=== PATIENT | female | born 1975 | race Caucasian/White ===

== ENCOUNTER 2018-07-13 17:03 | Inpatient (IN) | payer OTHER ==
[~2018-07-13] VITALS: Ht 170.2 cm; Wt 95.3 kg
[2018-07-13] MEDS ORDERED: RT-ALBUTEROL/IPRATROPIUM 3 ML (DUONEB) VIAL ONE ×2 (17:07→17:18)
[2018-07-13] MEDS ORDERED: methylPREDNISolone 125 MG (Solu-MEDROL) VIAL ONE (17:11)
[2018-07-13] MEDS ORDERED: methylPREDNISolone 125 MG (Solu-MEDROL) VIAL IVP ONE (17:15)
[2018-07-13] MEDS ORDERED: RT-ALBUTEROL/IPRATROPIUM 3 ML (DUONEB) VIAL INH ONE (17:15)
[2018-07-13 17:22] VITALS: BP 139/115
[2018-07-13 17:26] LABS: BASOPHILS % (AUTO) 0 % (0-10); EOSINOPHILS % (AUTO) 0 % (0-10); HEMATOCRIT 41 % (35-52); LYMPHOCYTES # (AUTO) 0.3 X 10^3 (1.0-4.0); LYMPHOCYTES % (AUTO) 2 % (12-44); MEAN CORPUSCULAR HEMOGLOBIN 26 PG (25-34); MEAN CORPUSCULAR HGB CONC 32 G/DL (32-36); MEAN CORPUSCULAR VOLUME 81 FL (80-99); MEAN PLATELET VOLUME 9.5 FL (7.4-10.4); MONOCYTES # (AUTO) 0.2 X 10^3 (0.0-1.0); MONOCYTES % (AUTO) 1 % (0-12); NEUTROPHILS # (AUTO) 13.7 X 10^3 (1.8-7.8); NEUTROPHILS % (AUTO) 96 % (42-75); PLATELET COUNT 409 10^3/uL (130-400); WHITE BLOOD COUNT 14.3 10^3/uL (4.3-11.0)
[2018-07-13] MEDS ORDERED: LORazepam INJ 2 MG/ML (ATIVAN) VIAL ONE (17:28)
--- NOTE | 2018-07-13 17:30 | NUR ---
PT VERY AXIOUS ATIVAN 1MG IV GIVEN
[2018-07-13 17:43] LABS: ALANINE AMINOTRANSFERASE 27 U/L (0-55); ALBUMIN 4.3 GM/DL (3.2-4.5); ALKALINE PHOSPHATASE 59 U/L (40-136); BILIRUBIN,TOTAL 0.3 MG/DL (0.1-1.0); BUN/CREATININE RATIO 13; CALCIUM 9.9 MG/DL (8.5-10.1); CARBON DIOXIDE 16 MMOL/L (21-32); CHLORIDE 103 MMOL/L (98-107); CREATININE SERUM 0.83 MG/DL (0.60-1.30); EOSINOPHILS % (MANUAL) 1 %; GFR ESTIMATED > 60; GLUCOSE 226 MG/DL (70-105); LYMPHOCYTES % (MANUAL) 3 %; MONOCYTES % (MANUAL) 1 %; NEUTROPHILS % (MANUAL) 95 %; POTASSIUM 3.7 MMOL/L (3.6-5.0); SODIUM 135 MMOL/L (135-145)
[2018-07-13 17:44] LABS: RBC MORPH NORMAL
[2018-07-13] MEDS ORDERED: LORazepam INJ 2 MG/ML (ATIVAN) VIAL IVP ONE (17:45)
--- NOTE | 2018-07-13 17:45 | NUR ---
PT VERY ANXIOUS, ATIVAN 1MG IV GIVEN ORDERED.
[2018-07-13] MEDS ORDERED: KETAMINE HCL 100 MG/ML 5 ML VIAL ONE (17:50)
[2018-07-13] MEDS ORDERED: NS (IVPB) 50 ML ONE ×2 (17:50→18:47)
--- NOTE | 2018-07-13 17:50 | NUR ---
CHANGE OF SHIFTS DR BARAHONA TO SEE PT NEW O RECIEVED
[2018-07-13] MEDS: MAGNESIUM 1 GM/100 ML IVPB 100 ML IV SCH ×2 (17:53→18:00)
[2018-07-13] MEDS ORDERED: RT-ALBUTEROL SULF 2.5 MG/3 ML PRE-MIX VIAL ONE (17:54)
[2018-07-13] MEDS ORDERED: ONDANSETRON 4 MG/2 ML (SDV) Z0FRAN ONE ×2 (17:57→19:55)
--- NOTE | 2018-07-13 17:59 | Diagnostic Imaging Report ---
INDICATION: Respiratory distress. EXAMINATION: Single view of the chest was obtained. FINDINGS: There is thickening of the central airways and prompt parabronchial cuffing with some very mild suprahilar atelectatic changes on the right. No adalgisa pneumonia. The heart size is upper limits. No vascular congestion. There is no effusion or pneumothorax. IMPRESSION: There is some thickening of the airways and mild perihilar atelectasis. No consolidating pneumonia, failure or acute pleural abnormality. Dictated by: Dictated on workstation # [id number]
[2018-07-13] MEDS ORDERED: RT-ALBUTEROL SULF 2.5 MG/3 ML PRE-MIX VIAL INH SCH ×2 (18:00→20:45)
[2018-07-13] MEDS ORDERED: KETAMINE HCL 100 MG/ML 5 ML VIAL IV ONE ×2 (18:00→19:00)
--- NOTE | 2018-07-13 18:00 | NUR ---
TEMP 101.1 AT THIS X
--- NOTE | 2018-07-13 18:03 | ED Cough/URI ---
General Chief Complaint: Respiratory Problems Stated Complaint: CP Nursing Triage Note: PT FROM CAR TO ED 2, PT SOA, CYNOTIC, TRIPODING, ONLY ABLE TO SHAKE HEAD FOR ANSWERS. PT HAS ASTHMA Sepsis Screen: No Definite Risk Source: patient, family Exam Limitations: no limitations (ARTI MALIK MD) History of Present Illness Date Seen by Provider: Jul 13, 2018 Time Seen by Provider: 17:00 Initial Comments This 43-year-old white female presents with severe respiratory distress secondary to her asthma. She denies fever or chills or productive cough. She denies substance insulation. The patient is unable offer helpful history of this time due to her extreme respiratory distress. (ARTI MALIK MD) Allergies and Home Medications Allergies Coded Allergies: No Known Drug Allergies (Unverified , 07/13/18) Patient Home Medication List Home Medication List Reviewed: Yes (ARTI MALIK MD) Review of Systems Review of Systems Constitutional: No chills EENTM: No ear pain Respiratory: see HPI, cough, short of breath, wheezing Cardiovascular: No chest pain Gastrointestinal: No abdominal pain Genitourinary: No dysuria, No frequency Musculoskeletal: no symptoms reported Skin: no symptoms reported Psychiatric/Neurological: No Symptoms Reported Hematologic/Lymphatic: No Symptoms Reported Immunological/Allergic: no symptoms reported (ARTI MALIK MD) Past Xywuwam-Vtxpdr-Ujfsuh Hx Past Med/Social Hx: Reviewed Nursing Past Med/Soc Hx (ARTI MALIK MD) Patient Social History Alcohol Use: Denies Use Recreational Drug Use: No Smoking Status: Current Everyday Smoker Type Used: Cigarettes Recent Foreign Travel: No Contact w/Someone Who Travel: No Recent Infectious Disease Expo: No Recent Hopitalizations: No (ARTI MALIK MD) Seasonal Allergies Seasonal Allergies: No (ARTI MALIK MD) Past Medical History Surgeries: No Respiratory: No Cardiac: No Neurological: No Genitourinary: No Gastrointestinal: No Musculoskeletal: No Endocrine: No HEENT: No Cancer: No Psychosocial: No Integumentary: No Blood Disorders: No (ARTI MALIK MD) Physical Exam Vital Signs - First Documented 07/13/18 17:03 Temp 99.6 Pulse 138 Resp 42 B/P (MAP) 142/92 (109) Pulse Ox 80 O2 Delivery OxyMask O2 Flow Rate 10.00 (KELLY BARAHONA) Capillary Refill : Less Than 3 Seconds (ARTI MALIK MD) Height: 5'7.00" Weight: 178lbs. oz. 80.569854zm; BMI Method:Stated General Appearance: severe distress Eyes: Bilateral Eye PERRL HEENT: normal ENT inspection Neck: full range of motion, supple Respiratory: decreased breath sounds, accessory muscle use Cardiovascular: regular rate, rhythm Gastrointestinal: normal bowel sounds Extremities: normal range of motion, non-tender Neurologic/Psychiatric: no motor/sensory deficits, alert, normal mood/affect, oriented x 3 Skin: normal color, warm/dry (ARTI MALIK MD) Focused Exam Sepsis Stage: Sepsis Possible Source: Pulmonary (KELLY BARAHONA) Time of Focused Exam: 22:25 Respiratory: No Accessory Muscle Use, Respiratory Distress, Wheezing Cardiovascular: Regular Rate, Rhythm (tachycardia 110), Normal Peripheral Pulses Capillary Refill: Less Than 3 Seconds Peripheral Pulses: 2+ Radial Pulses (R), 2+ Radial Pulses (L) Skin: normal color, warm/dry (KELLY BARAHONA) Within 3hrs of presentation: Admin fluids, Admin ABX, Blood cultures prior to ABX's, Focus exam, Lactate level (KELLY BARAHONA) Procedures/Interventions Reason for Intubation: acute respiratory failure hypercarbia, ventilatory failure Date of ETT Placement: Jul 13, 2018 Time of ETT Placement: 19:37 Intubation Method: orotracheal Tube Size: 8 Medications: Etomidate (30), Succinylcholine (100) Positive End Tide CO2: Yes Breath Sounds after Intubation: bilateral-equal Intubation Complications: no complications Post Intubation Xray: Yes (KELLY BARAHONA) Progress/Results/Core Measures Suspected Sepsis Recent Fever Within 48 Hours: No Infection Criteria Present: None New/Unexplained Altered Menta: No Sepsis Screen: No Definite Risk SIRS Temperature:99.6 Pulse: 138 Respiratory Rate: 42 Laboratory Tests 07/13/18 17:10: White Blood Count 14.3H Blood Pressure 139 /115 Mean: 109 Laboratory Tests 07/13/18 17:10: Creatinine 0.83, Platelet Count 409H, Total Bilirubin 0.3 (ARTI MALIK MD) Results/Orders Lab Results Laboratory Tests Test 07/13/18 17:10 07/13/18 17:34 07/13/18 18:00 Range/Units White Blood Count 14.3 H 4.3-11.0 10^3/uL Red Blood Count 4.98 4.35-5.85 10^6/uL Hemoglobin 13.0 11.5-16.0 G/DL Hematocrit 41 35-52 % Mean Corpuscular Volume 81 80-99 FL Mean Corpuscular Hemoglobin 26 25-34 PG Mean Corpuscular Hemoglobin Concent 32 32-36 G/DL Red Cell Distribution Width 16.0 H 10.0-14.5 % Platelet Count 409 H 130-400 10^3/uL Mean Platelet Volume 9.5 7.4-10.4 FL Neutrophils (%) (Auto) 96 H 42-75 % Lymphocytes (%) (Auto) 2 L 12-44 % Monocytes (%) (Auto) 1 0-12 % Eosinophils (%) (Auto) 0 0-10 % Basophils (%) (Auto) 0 0-10 % Neutrophils # (Auto) 13.7 H 1.8-7.8 X 10^3 Lymphocytes # (Auto) 0.3 L 1.0-4.0 X 10^3 Monocytes # (Auto) 0.2 0.0-1.0 X 10^3 Eosinophils # (Auto) 0.0 0.0-0.3 10^3/uL Basophils # (Auto) 0.0 0.0-0.1 10^3/uL Neutrophils % (Manual) 95 % Lymphocytes % (Manual) 3 % Monocytes % (Manual) 1 % Eosinophils % (Manual) 1 % Blood Morphology Comment NORMAL Sodium Level 135 135-145 MMOL/L Potassium Level 3.7 3.6-5.0 MMOL/L Chloride Level 103 98-107 MMOL/L Carbon Dioxide Level 16 L 21-32 MMOL/L Anion Gap 16 H 5-14 MMOL/L Blood Urea Nitrogen 11 7-18 MG/DL Creatinine 0.83 0.60-1.30 MG/DL Estimat Glomerular Filtration Rate > 60 BUN/Creatinine Ratio 13 Glucose Level 226 H 70-105 MG/DL Calcium Level 9.9 8.5-10.1 MG/DL Corrected Calcium 9.7 8.5-10.1 MG/DL Total Bilirubin 0.3 0.1-1.0 MG/DL Aspartate Amino Transf (AST/SGOT) 35 H 5-34 U/L Alanine Aminotransferase (ALT/SGPT) 27 0-55 U/L Alkaline Phosphatase 59 40-136 U/L Troponin I < 0.028 <0.028 NG/ML B-Type Natriuretic Peptide 34.4 <100.0 PG/ML Total Protein 8.0 6.4-8.2 GM/DL Albumin 4.3 3.2-4.5 GM/DL Serum Test, Qualitative NEGATIVE NEGATIVE D-Dimer 0.58 H 0.00-0.49 UG/ML Blood Gas Puncture Site RT RAD Blood Gas Patient Temperature 101 Arterial Blood pH 7.25 *L 7.37-7.43 Arterial Blood Partial Pressure CO2 54 H 35-45 MMHG Arterial Blood Partial Pressure O2 64 L 79-93 MMHG Arterial Blood HCO3 22 L 23-27 MMOL/L Arterial Blood Total CO2 23.6 21.0-31.0 MMOL/L Arterial Blood Oxygen Saturation 83 L 94-100 % Arterial Blood Base Excess -3.8 L -2.5-2.5 MMOL/L Ulices Test YES-POS Blood Gas Ventilator Setting NO Blood Gas Inspired Oxygen 10 (KELLY BARAHONA) Micro Results (KELLY BARAHONA) My Orders Orders - KELLY BARAHONA Midazolam Injection (Versed Injection) (07/13/18 18:30) Arterial Blood Draw (07/13/18 18:00) (KELLY BARAHONA) Medications Given in ED Current Medications Medications Dose Ordered Sig/James Route Start Time Stop Time Status Last Admin Dose Admin Albuterol/ Ipratropium 3 ml ONCE ONCE INH 07/13/18 17:15 07/13/18 17:19 DC 07/13/18 17:22 3 ML Ketamine HCl 40 mg ONCE ONCE IV 07/13/18 18:00 07/13/18 18:01 DC 07/13/18 17:54 40 MG Lorazepam 1 mg ONCE ONCE IVP 07/13/18 17:45 07/13/18 17:46 DC 07/13/18 17:30 1 MG Methylprednisolone Sodium Succinate 125 mg ONCE ONCE IVP 07/13/18 17:15 07/13/18 17:19 DC 07/13/18 17:15 125 MG Midazolam HCl 2 mg ONCE ONCE IVP 07/13/18 18:30 07/13/18 18:31 DC 07/13/18 18:25 2 MG Ondansetron HCl 4 mg STK-MED ONCE .ROUTE 07/13/18 17:57 07/13/18 17:58 DC 07/13/18 17:54 4 MG (KELLY BARAHONA) Vital Signs/I&O 07/13/18 07/13/18 07/13/18 07/13/18 17:03 17:22 18:09 18:14 Temp 99.6 Pulse 138 138 135 Resp 42 40 B/P (MAP) 142/92 (109) Pulse Ox 80 94 93 95 O2 Delivery OxyMask OxyMask O2 Flow Rate 10.00 50.00 15.00 50.00 07/14/18 00:00 Intake Total 200 ml Balance 200 ml (KELLY BARAHONA) Vital Signs/I&O Capillary Refill : Less Than 3 Seconds (ARTI MALIK MD) Blood Pressure Mean: 109 ECG Initial ECG Impression Date: Jul 13, 2018 Initial ECG Impression Time: 19:05 Initial ECG Rate: 137 Initial ECG Rhythm: Normal Sinus Initial ECG Intervals: Normal Initial ECG Impression: Normal Comment No significant ST elevation or depression. Sinus tachycardia. (KELLY BARAHONA) Diagnostic Imaging Diagonstic Imaging: Xray Plain Films/CT/US/NM/MRI: chest Comments [facility] [place] NAME: TIMI DELGADO [facility] REC#: [id number] PT STATUS: REG ER : 1975 PHYSICIAN: ARTI MALIK MD ADMIT DATE: 07/13/18/ER Draft Date of Exam:07/13/18 CHEST 1 VIEW, AP/PA ONLY INDICATION: Respiratory distress. EXAMINATION: Single view of the chest was obtained. FINDINGS: There is thickening of the central airways and prompt parabronchial cuffing with some very mild suprahilar atelectatic changes on the right. No adalgisa pneumonia. The heart size is upper limits. No vascular congestion. There is no effusion or pneumothorax. IMPRESSION: There is some thickening of the airways and mild perihilar atelectasis. No consolidating pneumonia, failure or acute pleural abnormality. Dictated on workstation # [id number] Dict: 07/13/18 1741 Trans: 07/13/[address] [facility] [id number] Interpreted by: ASHLEY RITCHIE Electronically signed by: Diagonstic Imaging: Xray Plain Films/CT/US/NM/MRI: chest Comments Postintubation about 3 cm above the julio. OG tube in good placement in the stomach bubble. Reviewed: Reviewed by Me Diagonstic Imaging: CT (angiogram) Plain Films/CT/US/NM/MRI: chest Comments No pulmonary embolism noted. There is some peribronchial cuffing and infiltration consistent with influenza but no definite pneumonia. Reviewed: Reviewed by Me (KELLY BARAHONA) Critical Care Note Critical Care Start Time: 17:45 Stop Time: 21:30 Total Time (minutes) 225 mins Progress Assume care of the patient at shift change. She was very agitated and unable to give any meaningful history and had audible wheezing respirator distress increased work of breathing. Breath sounds were very tight she been ordered for some magnesium DuoNeb 3 and 2 of Ativan IV. We increased the magnesium 2 mg gave her a 40 mg/kg slow IV push the ketamine and 2 more milligrams of Versed. Patient was not tolerating her BiPAP but after we gave her the ketamine and Versed we're able to get BiPAP on and her respirations status improved significantly. The initial ABG obtained was clotted so we redrew it and that one was obtained while she was still on just a nebulizer at 8 L. Her sats were about 88%. Once we get her on the BiPAP with an FiO2 of 50 we continued the hour -long DuoNeb and her sats were about 95-97%. Her work of breathing decreased. Put her at 15 cm water pressure over 4 centimeters water pressure which gave her plenty of expiratory time. Her breath sounds improved significantly. She still had lots of wheezing however which she was moving air much that her. We had to give her 2 more milligrams of Ativan as she was coming agitated and trying to pull her mask off. Her mother states that she gets very agitated and likes to pull things when irritated her. She refuses to wear her BiPAP at home. The ABG demonstrated that she had CO2 retention as well as low oxygen. We'll repeat it 30 minutes after initiation of the mask. We did end up giving her second dose of ketamine 30 mg slow IV push and 2 more milligrams of Ativan as she was becoming agitated and her wheezing was still very persistent. She finished her DuoNeb and had good sounds are very wheezy still. Some crackles were heard initially at the base but not heard on re-listening. Chest x-ray did not demonstrate any infiltrate. White count of 14,000. Her mother states she's recently been on steroids prednisone outpatient so is probably why she has a mildly elevated white count. She started and given Solu-Medrol 125 mg prior to shift change. Patient's oxygen sats are staying in above 95% and her heart rate is staying around 130 -140. Blood pressure is good. Finally her d-dimer does not rule out a PE so we are sending her for an angiogram of her chest. We cannot get any meaningful history out of her and only minimal history of family. She does not demonstrate any outward clinical evidence of DVT. 2000: Patient's still having a lot of increased worker breathing wearing out and the ABG did not improve for her ventilation. Her oxygenation did significantly improve. Made a decision to go ahead and intubate her. Consulted with pulmonology also recommend a liter fluids as her blood pressure may drop. Initial settings of 350, 20 rest burst, Kido 5, FiO2 of 40. Oxygenation is good at 98%. Suctioned up some mucus sent for sputum culture. End-tidal CO2 is 49 so bumped up her total volume to 400. We'll continue to incrementally adjust and obtain an ABG when she gets back from CT. 2014: Discussed case with Dr. Keenan and he gave ventilator setting recommendations of PEEP of 8, tidal volume 400, respiratory rate of 22. He recommended also that we go ahead and do paralytics as the patient was doing better when she was on paralytics and worse once that wore off. Regarding increased her propofol to 28.8 mL/h and gave her a 20 mg IV push bolus. We also gave her 5 of Versed. She was having some gagging and no expectoration on suctioning. The cuff was tight. The ET tube was ascertained to be in good position. She had good breath sounds both sides are still very wheezy. He also recommended we do every 2 hours a albuterol breathing treatment. Steroids. We have made some changes to the ventilator try to keep the eat time long. He recommended an i.e. ratio 1:3-4. He recommended Nimbex bolus and drip per protocol and no old drip at 50-75 g per hour in addition to the propofol. We' ve given 100 g fentanyl bolus in addition to the Versed and she's calm down quite a bit. After we get her stabilized we'll get CT and then on repeat ABG. FiO2 was increased to 1.0 and urinalysis started to back and off-again as it's 100% once her sedation has improved. She did have a small amount of emesis that was suctioned from the oropharynx. We replaced the suction canister and got a modest 50 cc of stomach secretions out. We gave her a second bolus of 2 g of magnesium. Within she was having the vomiting so we ordered 8 of Zofran and 50 mg of Phenergan to be placed in the liter bag of fluids is still had about 750 cc in it. We'll give her another albuterol treatment as well. 2129: We got the patient's ventilator settings changed to where she is oxygenating well at 40 FiO2 and her end-tidal CO2 is about 45. Her PTT is 26 with an I:E time of 1:3.3. We'll get the patient paralyzed and very adequately sedated. Were just starting paralytics now and she has not been bucking the vent since starting the fentanyl, in addition to the propofol. Oxygen sats between 96 and 100%. We will place a central line for access as we have some any drips. Patient tolerated this well. We have been keeping the family up-to- date as we're doing this. Her ABG came back demonstrating an improved CO2 but her pH still low. Her O2 sat started to slip down to 91-93% as well as her some ET CO2 is about 46 now instead of 42. We increased the tidal volume to 450. Peak airway pressure is about 36. (KELLY BARAHONA) Departure Communication (Admissions) Time/Spoke to Admitting Phy: 18:45 Discussed the case with Dr. Narayan and she agrees to admit the patient with Dr. Keenan's consult on precedex drip. Time/Spoke to Consulting Phy: 19:00 See critical care. Discussed case with pulmonology, Dr. Keenan. He agrees to see the patient. (KELLY BARAHONA) Impression Primary Impression: Asthma exacerbation Qualified Codes: J45.901 - Unspecified asthma with (acute) exacerbation Additional Impressions: Acute respiratory failure with hypoxia and hypercapnia Influenza Disposition: 09 ADMITTED INPATIENT Condition: Critical Admissions Decision to Admit Reason: Admit from ER (General) Decision to Admit/Date: Jul 13, 2018 Time/Decision to Admit Time: 18:46 (KELLY BARAHONA) Departure-Patient Inst. Referrals: UNKNOWN (PCP/Family) Primary Care Physician ARTI MALIK MD Jul 13, 2018 18:03 KELLY BARAHONA Jul 13, 2018 19:10
[2018-07-13 18:07] LABS: ABG BASE EXCESS -3.8 MMOL/L (-2.5-2.5); ABG OXYGEN SATURATION 83 % (94-100); ABG PCO2 54 MMHG (35-45); ABG PO2 64 MMHG (79-93); ABG TCO2 23.6 MMOL/L (21.0-31.0)
[2018-07-13 18:08] LABS: ABG PH 7.25 (7.37-7.43)
[2018-07-13 18:09] LABS: ALLENS TEST YES-POS; INSPIRED O2 10; PATIENT TEMP 101; VENTILATOR NO
[2018-07-13 18:14] VITALS: BP 146/96
[2018-07-13] MEDS ORDERED: MIDAZOLAM 2 MG/2 ML (VERSED) VIAL ONE (18:19)
[2018-07-13] MEDS ORDERED: MIDAZOLAM 2 MG/2 ML (VERSED) VIAL IVP ONE ×2 (18:30→19:00)
--- OUTSIDE RECORDS SUMMARY | 2018-07-13 18:42 | XMS REPORT ---
Author Author HOANG BLAKE [facility] Address [address] [place] [address] Care Team Providers Care Therapist Radiation Name Role Phone HOANG BLAKE Unavailable PROBLEMS Type Condition ICD9-CM Code [id number] Code Onset Dates Condition Status SNOMED Code Problem Acute sinusitis, recurrence not specified, unspecified location J01.90 Active 51509686 Problem Major depressive disorder, recurrent episode, moderate 296.32 Active 59272878 Problem Generalized anxiety disorder 300.02 Active 69048600 ALLERGIES No Information SOCIAL HISTORY Never Assessed PLAN OF CARE VITAL SIGNS MEDICATIONS No Known Medications RESULTS No Results PROCEDURES Procedure Date Ordered Result Body Site TDAP (BOOSTRIX) Jun 24, 2016 SINGLE IMMUNIZATION ADMIN Jun 24, 2016 IMMUNIZATIONS Vaccine Route Administration Date Status TDAP (BOOSTRIX) IM Intramuscular Jun 24, 2016 Administered MEDICAL (GENERAL) HISTORY Type Description Date Surgical History tubal ligation
--- OUTSIDE RECORDS SUMMARY | 2018-07-13 18:42 | XMS REPORT ---
Author Author SHADI DENISHA Organization [facility] Address [address] [place] [address] Care Team Providers Care Manager Of Selection And Assessment Name Role Phone DENISHA HSU Unavailable PROBLEMS Type Condition ICD9-CM Code [id number] Code Onset Dates Condition Status SNOMED Code Problem Acute sinusitis, recurrence not specified, unspecified location J01.90 Active 25903668 Problem Major depressive disorder, recurrent episode, moderate 296.32 Active 62260127 Problem Generalized anxiety disorder 300.02 Active 35689903 ALLERGIES No Known Allergies ENCOUNTERS Encounter Location Date Diagnosis [facility] [id number] [place] [phone] Apr, Wheezing R06.2 and Acute nasopharyngitis J00 [facility] [id number] [place] [address] September, Muscle strain of right upper back, initial encounter S29.012A [facility] [id number] [place] [address] Jun, Encounter for immunization Z23 [facility] [id number] [place] [address] Dec, [facility] [id number] [place] [address] Dec, Acute sinusitis, recurrence not specified, unspecified location J01.90 and Upper respiratory tract infection, unspecified type J06.9 [facility] [id number] [place] [phone] Oct, Upper respiratory tract infection, unspecified type J06.9 [facility] [place] [id number] [place] [address] Jul, [facility] [place] [id number] [address] Jul, [facility] [place] [id number] [address] Jun, [facility] [place] [id number] [place] [address] Jun, [facility] [place] [id number] [place] [address] May, [facility] [place] [id number] [place] [address] May, [facility] [place] [id number] [place] [phone] Apr, [facility] [place] [id number] [place] [address] Apr, [facility] [place] [id number] [place] [address] Apr, [facility] [place] [id number] [address] Apr, IMMUNIZATIONS No Known Immunizations SOCIAL HISTORY Never Assessed REASON FOR VISIT Shortness of breath that started last week after raking leaves and burning them. The patient developed a cough and some shortness of breath and feels that the shortness of breath and be worse today.--BERNADINE Cavanaugh PLAN OF CARE Activity Details Follow Up as needed or reg fu with pcp Reason: VITAL SIGNS Height 66 in 2018-04-30 Weight 209 lbs 2018-04-30 Temperature 97.6 degrees Fahrenheit 2018-04-30 Heart Rate 102 bpm 2018-04-30 Respiratory Rate 20 2018-04-30 Oximetry 96 % 2018-04-30 BMI 33.73 kg/m2 2018-04-30 Blood pressure systolic 132 mmHg 2018-04-30 Blood pressure diastolic 88 mmHg 2018-04-30 MEDICATIONS Medication Instructions Dosage Frequency Start Date End Date Duration Status PredniSONE 20 mg Orally Once a day 1 tablet 24h Apr, 5 days Active ProAir HFA 108 (90 Base) MCG/ACT Inhalation every 4 hrs 2 puffs as needed 4h Apr, 7 days Active RESULTS No Results PROCEDURES No Known procedures INSTRUCTIONS MEDICATIONS ADMINISTERED No Known Medications MEDICAL (GENERAL) HISTORY Type Description Date Surgical History tubal ligation Surgical History umbilical hernia
--- OUTSIDE RECORDS SUMMARY | 2018-07-13 18:42 | XMS REPORT ---
Author Author REBA DELGADO [facility] eClinical[employer] Address Unknown Phone Unavailable Care Team Providers Care Histology Supervisor Name Role Phone REBA DELGADO CP Unavailable Allergies No Known Allergies Problems Problem Type Condition Code Onset Dates Condition Status Problem Major depressive disorder, recurrent episode, moderate 296.32 Active Problem Generalized anxiety disorder 300.02 Active Problem Acute sinusitis, recurrence not specified, unspecified location J01.90 Active Medications Medication Code System Code Instructions Start Date End Date Status Dosage PredniSONE [facility] [address]-08 20 MG Orally 2 tablets daily x 5 days Dec 24, 2015 Dec 29, 2015 1 tablet Results No Known Results Summary Purpose eClinicalWorks Submission
--- OUTSIDE RECORDS SUMMARY | 2018-07-13 18:42 | XMS REPORT | Continuity of Care Document ---
Author Author [facility]ly [facility] Address Unknown Phone Unavailable Allergies There is no data. Medications There is no data. Problems Date Dx Coded Attending Type Code Diagnosis Diagnosed By 04/26/2014 MARY MANZANO PHD 296.32 MO DEPRESSIVE RECURRENT MODERATE 04/26/2014 MARY MANZANO PHD 300.02 AN GEN ANXIETY Procedures Code [place] [address] PSYCH DIAGNOSTIC EVALUATION 04/26/2014 Results There is no data. Encounters ACCT No. Visit Date/Time Discharge Status Pt. Type Provider Facility Loc./Unit Complaint [id number] 04/26/2014 09:49:00 04/26/2014 23:59:59 CLS Outpatient MARY MANZANO PHD [id number] 06/29/2018 15:40:00 06/29/2018 23:59:59 CLS Outpatient [facility] [id number] 09/08/2013 07:53:00 09/08/2013 23:59:59 CLS Outpatient [id number] 01/28/2013 13:34:00 01/28/2013 23:59:59 CLS Outpatient
--- NOTE | 2018-07-13 19:00 | NUR ---
REPORT TO MARY QUIGLEY
[2018-07-13 19:14] LABS: ABG BASE EXCESS -3.7 MMOL/L (-2.5-2.5); ABG OXYGEN SATURATION 98 % (94-100); ABG PO2 136 MMHG (79-93); ABG TCO2 25.6 MMOL/L (21.0-31.0)
[2018-07-13 19:15] LABS: ABG PCO2 72 MMHG (35-45); ABG PH 7.16 (7.37-7.43)
[2018-07-13 19:16] LABS: ALLENS TEST YES-POS; INSPIRED O2 50% BIPAP; PATIENT TEMP 101.4; VENTILATOR NO
[2018-07-13] MEDS ORDERED: NS IV 1000 ML 1,000 ML IV STA (19:25)
[2018-07-13] MEDS ORDERED: NS IV 1000 ML 1,000 ML ONE (19:26)
[2018-07-13] MEDS ORDERED: NS 100 ML (IVPB) BAG IV ONE (19:30)
[2018-07-13] MEDS ORDERED: IOHEXOL 350 MG/ML 150 ML (OMNIPAQUE 350) VIAL IV ONE (19:30)
[2018-07-13] MEDS ORDERED: HOLD METFORMIN - RECEIVED CONTRAST 20 ML VIAL IV SCH (19:30)
[2018-07-13] MEDS ORDERED: CATHETER FLUSH 10 ML SYR IV PRN (19:30)
[2018-07-13] MEDS ORDERED: PROPOFOL DRIP (ICU) 100 ML IV ONE ×2 (19:32→22:51)
--- NOTE | 2018-07-13 19:34 | NUR ---
DECISION TO INTUBATE MADE-1927 30MG OF ETOMIDATE GIVEN IV-1933 100MG OF SUCCINYLCHOLINE GIVEN IV- 1935 PT INTUBATED, 22 AT THE TEETH NOTED PER DR. BARAHONA.
--- NOTE | 2018-07-13 19:46 | NUR ---
PT TITRATED TO 40MCG/MIN PER DR. BARAHONA D/T PT SHOWING S/S OF POOR SEDATION POST INTUBATION
[2018-07-13] MEDS ORDERED: MIDAZOLAM 5 MG/5 ML (VERSED) VIAL ONE (19:55)
[2018-07-13] MEDS ORDERED: PROMETHAZINE INJ 25 MG/ML (PHENERGAN) AMP ONE (20:04)
[2018-07-13] MEDS ORDERED: MAGNESIUM 1 GM/100 ML IVPB 100 ML IV SCH (20:15)
[2018-07-13] MEDS ORDERED: CISATRACURIUM 2MG/ML (NIMBEX) 10ML VIAL IV ONE (20:15)
--- NOTE | 2018-07-13 20:17 | Diagnostic Imaging Report ---
INDICATION: ET tube. EXAMINATION: Single view of the chest was obtained. FINDINGS: ET tube tip projects over the mid trachea. The OG catheter goes into the stomach. No focal pulmonary consolidation. No effusion or pneumothorax. IMPRESSION: Support apparatus in good alignment. Dictated by: Dictated on workstation # [id number]
[2018-07-13] MEDS ORDERED: fentaNYL (OMNICELL DRIP KIT ONLY) 250 MCG/5 ML AMP ONE (20:24)
[2018-07-13] MEDS ORDERED: NS (IVPB) 100 ML ONE (20:24)
[2018-07-13 20:25] VITALS: BP 129/75
[2018-07-13] MEDS ORDERED: fentaNYL INJECTION 100 MCG/2 ML AMP ONE (20:28)
[2018-07-13] MEDS ORDERED: fentaNYL INJECTION 100 MCG/2 ML AMP IVP ONE (20:30)
[2018-07-13] MEDS ORDERED: PROMETHAZINE INJ 25 MG/ML (PHENERGAN) AMP IVP ONE (20:45)
[2018-07-13] MEDS ORDERED: proPOfol 200 MG/20 ML (DIPRIVAN) VIAL IV ONE (20:45)
[2018-07-13] MEDS ORDERED: MIDAZOLAM 5 MG/5 ML (VERSED) VIAL IVP ONE (20:45)
[2018-07-13] MEDS ORDERED: ONDANSETRON 4 MG/2 ML (SDV) Z0FRAN IVP ONE (20:45)
[2018-07-13] MEDS: fentaNYL INJECTION 1,250 MCG in NS (IVPB) 250 ML IV SCH (20:52)
[2018-07-13] MEDS ORDERED: CISATRACURIUM 100 MG/NS 200 ML (TOTAL VOLUME 250 ML) IV SCH ×2 (21:00)
[2018-07-13] MEDS ORDERED: NS IV 500 ML 500 ML IV ONE (21:18)
[2018-07-13] MEDS ORDERED: NS IV 1000 ML 1,000 ML IV SCH (21:18)
--- NOTE | 2018-07-13 21:33 | Diagnostic Imaging Report ---
INDICATION: Central line. EXAMINATION: Single view of the chest was obtained. FINDINGS: ET tube is mid trachea. OG catheter in the stomach. Right IJ near the innominate junction. No pneumothorax. IMPRESSION: Right IJ placed at the junction of the innominates without pneumothorax. Remaining support apparatus is stable. Clear lungs with no acute pleural pathology. Dictated by: Dictated on workstation # [id number]
[2018-07-13] MEDS: CISATRACURIUM INJECTION 100 MG in NS (IVPB) 200 ML IV SCH (21:35)
[2018-07-13 21:38] VITALS: BP 110/62
[2018-07-13 21:42] LABS: ABG BASE EXCESS -4.9 MMOL/L (-2.5-2.5); ABG OXYGEN SATURATION 95 % (94-100); ABG PCO2 66 MMHG (35-45); ABG PO2 94 MMHG (79-93); ABG TCO2 24.4 MMOL/L (21.0-31.0)
[2018-07-13 21:43] LABS: ALLENS TEST POSITIVE; INSPIRED O2 40% FIO2; PATIENT TEMP 99.5; VENTILATOR YES
[2018-07-13 21:44] LABS: ABG PH 7.16 (7.37-7.43)
--- OUTSIDE RECORDS SUMMARY | 2018-07-13 22:22 | XMS REPORT | Continuity of Care Document ---
Author Author [facility] Address Unknown Phone Unavailable Allergies There is no data. Medications There is no data. 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 Encounters ACCT No. Visit Date/Time Discharge Status Pt. Type Provider Facility Loc./Unit Complaint [id number] 04/26/2014 09:49:00 04/26/2014 23:59:59 CLS Outpatient MARY MANZANO PHD [id number] 06/29/2018 15:40:00 06/29/2018 23:59:59 CLS [facility] [id number] 09/08/2013 07:53:00 09/08/2013 23:59:59 CLS Outpatient [id number] 01/28/2013 13:34:00 01/28/2013 23:59:59 CLS Outpatient
[2018-07-13 23:00] VITALS: BP 147/88
[2018-07-13 23:05] VITALS: BP 147/88
[2018-07-13] MEDS ORDERED: RT-ALBUTEROL SULF 2.5 MG/3 ML PRE-MIX VIAL IH SCH (23:15)
[2018-07-13] MEDS ORDERED: KETAMINE 50 MG/ML 10 ML VIAL IV PRN (23:15)
[2018-07-13] MEDS ORDERED: ONDANSETRON 4 MG/2 ML (SDV) Z0FRAN IV PRN (23:15)
[2018-07-13] MEDS ORDERED: NS W/KCL 20 MEQ/L 1,000 ML IV SCH (23:15)
[2018-07-13] MEDS ORDERED: MIDAZOLAM 2 MG/2 ML (VERSED) VIAL IV PRN (23:15)
[2018-07-14] VITALS (38 sets, daily range): BP systolic 80–125; BP diastolic 37–85
[2018-07-14] MEDS: DEXMEDETOMIDINE INJECTION 200 MCG in NS (IVPB) 50 ML IV SCH ×2 (00:24→11:54)
[2018-07-14] MEDS: ARTIFICIAL TEARS OINT (LACRI-LUBE) 3.5 GM TUBE OU SCH ×7 (00:24→23:25)
[2018-07-14 00:37] LABS: ABG BASE EXCESS -3.7 MMOL/L (-2.5-2.5); ABG OXYGEN SATURATION 94 % (94-100); ABG PCO2 67 MMHG (35-45); ABG PO2 79 MMHG (79-93); ABG TCO2 25.9 MMOL/L (21.0-31.0); ALLENS TEST POSITIVE; INSPIRED O2 50%; PATIENT TEMP 97.9; VENTILATOR YES
[2018-07-14 00:38] LABS: ABG PH 7.17 (7.37-7.43)
[2018-07-14 01:05] LABS: AMPHETAMINE SCREEN, URINE POSITIVE (NEGATIVE); BARBITURATE SCREEN URINE NEGATIVE (NEGATIVE); BENZODIAZEPINES SCREEN URINE POSITIVE (NEGATIVE); CANNABINOID SCREEN, URINE NEGATIVE (NEGATIVE); COCAINE SCREEN URINE NEGATIVE (NEGATIVE); METHADONE STAT NEGATIVE (NEGATIVE); METHAMPHETAMINE SCREEN URINE S NEGATIVE (NEGATIVE); OPIATE SCREEN URINE NEGATIVE (NEGATIVE); OXYCODONE STAT NEGATIVE (NEGATIVE); PROPOXYPHENE STAT NEGATIVE (NEGATIVE); TRICYCLIC ANTIDEPRESSANTS SCRE NEGATIVE (NEGATIVE)
[2018-07-14] MEDS ORDERED: RT-ALBUTEROL SULF 2.5 MG/3 ML PRE-MIX VIAL INH SCH ×3 (01:45→06:00)
--- NOTE | 2018-07-14 02:00 | NUR ---
TITRATED NIMBEX TO 2MCG/KG,
[2018-07-14] MEDS: cefTRIAXone 1,000 MG/SWFI 10 ML IV PUSH IV SCH ×2 (02:06)
[2018-07-14] MEDS: AZITHROMYCIN 500 MG/NS 250 ML IVPB IV SCH ×2 (02:15)
[2018-07-14 03:20] LABS: ABG BASE EXCESS -3.2 MMOL/L (-2.5-2.5); ABG OXYGEN SATURATION 95 % (94-100); ABG PCO2 57 MMHG (35-45); ABG PO2 74 MMHG (79-93); ABG TCO2 24.9 MMOL/L (21.0-31.0); BASOPHILS % (AUTO) 0 % (0-10); EOSINOPHILS % (AUTO) 0 % (0-10); HEMATOCRIT 36 % (35-52); HEMOGLOBIN 11.2 G/DL (11.5-16.0); LYMPHOCYTES # (AUTO) 0.3 X 10^3 (1.0-4.0); LYMPHOCYTES % (AUTO) 3 % (12-44); MEAN CORPUSCULAR HEMOGLOBIN 26 PG (25-34); MEAN CORPUSCULAR HGB CONC 31 G/DL (32-36); MEAN CORPUSCULAR VOLUME 85 FL (80-99); MEAN PLATELET VOLUME 9.2 FL (7.4-10.4); MONOCYTES # (AUTO) 0.4 X 10^3 (0.0-1.0); MONOCYTES % (AUTO) 3 % (0-12); NEUTROPHILS # (AUTO) 12.1 X 10^3 (1.8-7.8); NEUTROPHILS % (AUTO) 94 % (42-75); PLATELET COUNT 331 10^3/uL (130-400); RED CELL DISTRIBUTION WIDTH 16.3 % (10.0-14.5); WHITE BLOOD COUNT 12.9 10^3/uL (4.3-11.0)
[2018-07-14 03:24] LABS: ABG PH 7.24 (7.37-7.43); ALLENS TEST POSITIVE; INSPIRED O2 50% FIO2
[2018-07-14 03:25] LABS: PATIENT TEMP 98.5; VENTILATOR YES
[2018-07-14 03:34] LABS: BUN/CREATININE RATIO 12; CARBON DIOXIDE 21 MMOL/L (21-32); CHLORIDE 109 MMOL/L (98-107); CREATININE SERUM 0.73 MG/DL (0.60-1.30); GFR ESTIMATED > 60; GLUCOSE 160 MG/DL (70-105); MAGNESIUM 2.5 MG/DL (1.8-2.4); PHOSPHORUS 2.8 MG/DL (2.3-4.7); POTASSIUM 5.1 MMOL/L (3.6-5.0); SODIUM 137 MMOL/L (135-145)
[2018-07-14] MEDS ORDERED: NS (IVPB) 100 ML ONE (03:43)
[2018-07-14] MEDS ORDERED: fentaNYL (OMNICELL DRIP KIT ONLY) 250 MCG/5 ML AMP ONE (03:43)
[2018-07-14] MEDS: fentaNYL INJECTION 1,250 MCG in NS (IVPB) 250 ML IV SCH ×4 (03:57→20:21)
[2018-07-14] MEDS: POTASSIUM CL 10MEQ/50ML IVPB 50 ML IV SCH (04:19)
[2018-07-14] MEDS: CISATRACURIUM INJECTION 100 MG in NS (IVPB) 200 ML IV SCH ×3 (04:19→15:57)
[2018-07-14] MEDS: KCL 20 MEQ TAB (K-DUR) PO SCH (04:20)
[2018-07-14] MEDS: MAGNESIUM 1 GM/100 ML IVPB 100 ML IV SCH (04:20)
--- NOTE | 2018-07-14 04:59 | Pulmonary Consultation ---
History of Present Illness History of Present Illness Date of Consultation 07/14/18 04:53 Time Seen by Provider: 05:21 Date of Admission History of Present Illness 43yo with hx of asthma, tobacco use, presented to ED secondary to worsening SOB , and wheezing. Pt was dx with severe asthma AE with acute respiratory failure and was intubated in ED. After intubation Nimbex was started secondary to difficulty ventilating patient and severe hypoxia. Pt was given a mag bolus in ED. Family is currently at bedside and I answered all of their questions and explained pt's current condition. Unable to obtain ROS secondary to pt being sedated on vent. Pt did have a positive influ test in ED. Abx have also been started. PT has not ever required vent before and she is not known to my office. Allergies and Home Medications Allergies Coded Allergies: No Known Drug Allergies (Unverified , 07/13/18) Past Dphnwnx-Niidso-Pqdzmq Hx Past Med/Social Hx: Reviewed Nursing Past Med/Soc Hx Patient Social History Alcohol Use: Denies Use Recreational Drug Use: No Smoking Status: Current Everyday Smoker Type Used: Cigarettes Recent Foreign Travel: No Contact w/Someone Who Travel: No Recent Infectious Disease Expo: No Recent Hopitalizations: No Physical Abuse: No Sexual Abuse: No Mistreated: No Fear: No Seasonal Allergies Seasonal Allergies: No Past Medical History Surgeries: No Respiratory: No Cardiac: No Neurological: No Genitourinary: No Gastrointestinal: No Musculoskeletal: No Endocrine: No HEENT: No Cancer: No Psychosocial: No Integumentary: No Blood Disorders: No Review of Systems Time Seen by Provider: 05:27 Sepsis Event Evaluation Height, Weight, BMI Height: 5'7.00" Weight: 215lbs. 0.0oz. 97.745328sl; 33.7 BMI Method:Stated Exam Exam Vital Signs Date Time Temp Pulse Resp B/P (MAP) Pulse Ox O2 Delivery O2 Flow Rate FiO2 07/14/18 04:00 Mechanical Ventilator 50 07/14/18 02:38 98.5 07/14/18 02:37 105/65 07/14/18 02:30 101 25 96 50 07/14/18 01:00 101 07/14/18 00:01 100 20 96 50 07/14/18 00:00 Mechanical Ventilator 50 07/14/18 00:00 101 20 123/75 (91) 95 Mechanical Ventilator 50.00 07/13/18 23:15 Mechanical Ventilator 50 07/13/18 23:15 123/75 07/13/18 23:15 97.9 07/13/18 23:05 99 20 97 50 07/13/18 23:00 147/88 (107) 07/13/18 22:56 98.9 101 20 118/68 (85) 100 Mechanical Ventilator 50.00 07/13/18 21:38 116 27 94 40 07/13/18 20:25 126 30 100 100 07/13/18 19:38 99.2 130 26 123/93 98 NIV Bilevel 10.00 07/13/18 18:14 135 40 95 50.00 07/13/18 18:09 93 OxyMask 15.00 07/13/18 17:22 138 94 50.00 07/13/18 17:03 99.6 138 42 142/92 (109) 80 OxyMask 10.00 I & O 07/14/18 06:59 Intake Total 250 ml Balance 250 ml Height & Weight Height: 5'7.00" Weight: 215lbs. 0.0oz. 97.652390bf; 33.7 BMI Method:Stated General Appearance: Other (sedated on vent) HEENT: PERRL/EOMI, Other (ET tube in place) Neck: Full Range of Motion, Supple Respiratory: No Accessory Muscle Use, Decreased Breath Sounds, Wheezing Cardiovascular: Regular Rate, Rhythm (tachycardia 110), Normal Peripheral Pulses Capillary Refill: Less Than 3 Seconds Peripheral Pulses: 2+ Radial Pulses (R), 2+ Radial Pulses (L) Gastrointestinal: normal bowel sounds Results Lab Laboratory Tests 07/13/18 17:10 07/14/18 03:10 Assessment/Plan Assessment/Plan Acute respiratory failure -Continue ventilator therapy -Nimbex, propofol 50, Fentanyl 75 -Will trial off Nimbex gtt this AM -Preg test is neg AsthmaAE -SVNS Q2 alternate albuterol and duoneb. -Add pulmicort to SVN -Solumedrol 60 IV Q 6 -S/p Magsulfate -IVF NS at 125 Hypotension -Give a 500cc NS bolus -Monitor Influenza -Start Tamiflu -pt did not have influ vaccination Hyperkalemia -Change IVF to NS take out KCL Tobacco use -Education AYAZ LANDIN DO Jul 14, 2018 04:58
[2018-07-14] MEDS ORDERED: methylPREDNISolone 125 MG (Solu-MEDROL) VIAL ONE (05:04)
[2018-07-14] MEDS: NS IV 1000 ML 1,000 ML IV SCH ×3 (05:08→18:26)
[2018-07-14] MEDS: methylPREDNISolone 125 MG (Solu-MEDROL) VIAL IV SCH ×4 (05:08→23:25)
--- NOTE | 2018-07-14 05:13 | NUR ---
DR LANDIN AT BEDSIDE, ORDERS TO STOP NIMBEX. WILL CONTINUE TO MONITOR.
--- NOTE | 2018-07-14 05:37 | NUR ---
PT APPEARS TO BE GASPING WITH NECK PULLING WHILE ON VENTILATOR, PT SPO2 95% WITH FI02 AT 45%. DR LANDIN INFORMED OF PT STATUS AND AT BEDSIDE, ORDERS FOR 50 MCG FENTANYL BOLUS PER CAD PUMP
[2018-07-14] MEDS ORDERED: LORazepam INJ 2 MG/ML (ATIVAN) VIAL ONE (05:48)
--- NOTE | 2018-07-14 05:58 | NUR ---
PT CONTINUES TO GASP ON VENTILATOR. ABDOMINAL RETRACTIONS NOTED, DR LANDIN AT BEDSIDE, ORDERS FOR 2MG ATIVAN NOW AND PRN Q4HR, 2MG VERSED ADMINISTERED WELL. WILL CONTINUE TO MONITOR.
[2018-07-14] MEDS ORDERED: methylPREDNISolone 125 MG (Solu-MEDROL) VIAL IV SCH (06:00)
[2018-07-14] MEDS: LORazepam INJ 2 MG/ML (ATIVAN) VIAL IVP PRN ×2 (06:06→20:16)
--- NOTE | 2018-07-14 06:07 | NUR ---
ORDERS PER DR LANDIN TO TITRATE FENTANYL DRIP TO 125MCG/HR
[2018-07-14] MEDS: RT-ALBUTEROL/IPRATROPIUM 3 ML (DUONEB) VIAL INH SCH ×5 (06:23→22:24)
[2018-07-14] MEDS: RT-BUDESONIDE NEBS 0.5 MG/2ML (PULMICORT) AMP INH SCH (06:44)
--- NOTE | 2018-07-14 06:51 | Diagnostic Imaging Report ---
PROCEDURE: CT angiography of the chest with contrast. TECHNIQUE: Multiple contiguous axial images were obtained through the chest after uneventful bolus administration of intravenous contrast. 2D reconstructed CTA MIP acquisitions were also performed. INDICATION: Asthma attack. Shortness of air. Ventilated patient. COMPARISON: Chest radiograph from earlier same day. FINDINGS: There is no evidence of acute pulmonary embolus of the first subsegmental division of the pulmonary arteries. Main pulmonary arterial trunk is prominent at 3.2 cm in diameter. Heart size is within normal limits. There is no large pericardial effusion. Thoracic aorta is normal in course and caliber. Several prominent appearing, yet subcentimeter bilateral perihilar lymph nodes are noted. No pathologically enlarged or morphologically abnormal adenopathy is seen within the mediastinum, wen, nor axilla. Indwelling endotracheal tube is noted with tip above the julio and below the clavicular heads. Evaluation of lung murrell demonstrates scattered patchy and confluent alveolar densities within the superior segments of the bilateral lower lobes, left greater than right. Small amount of infiltrative appearing density is also noted within the bilateral upper lobes. There is no large effusion or pneumothorax on either side. Small pulmonary micronodule is noted within the anterior margins of the right upper lobe and measures approximately 6 mm (image 75, series 2). Bony structures show no acute abnormalities. No lytic or blastic osseous lesions are seen. Included portions of the upper abdomen are unremarkable. Nonobstructive right renal calculus is noted. Indwelling gastric tube is noted with tip in the stomach. IMPRESSION: 1. No acute pulmonary embolus. 2. Bilateral pneumonia. Followup with serial chest radiographs is recommended. 3. Slightly prominent appearing bilateral hilar lymph nodes; possibly reactive. 4. Enlargement of the main pulmonary arterial trunk. Findings can be seen with underlying pulmonary arterial hypertension. 5. A 6 mm micronodule within the right upper lobe. Six-month followup is recommended. 6. Nonobstructive right renal calculus. Dictated by: Dictated on workstation # [id number]
[2018-07-14] MEDS ORDERED: FLU QUADRIvalent (5+ YOA) 2018-2019 (AFLURIA) 0.5 ML IM ONE (07:00)
--- NOTE | 2018-07-14 07:26 | Diagnostic Imaging Report ---
INDICATION: Ventilated patient. Respiratory failure. COMPARISON: 07/13/2018 FINDINGS: Single frontal radiographic view of the chest was obtained and demonstrates indwelling endotracheal tube with tip at the clavicular heads. Gastric tube with side port within the stomach. Right internal jugular central venous catheter is noted with tip likely within the high SVC, potentially within the lower internal jugular vein. Cardiac silhouette and pulmonary vasculature within normal limits. Lungs appear clear. Patchy consolidations seen on recent CTA chest are inconspicuous. There is no large effusion or pneumothorax on today's exam. Bony structures show no acute adverse interval change. IMPRESSION: 1. Patient's known bilateral mid and upper lung infiltrates are essentially inconspicuous on this exam. 2. Lines and tubes as above. Dictated by: Dictated on workstation # [id number]
[2018-07-14] MEDS ORDERED: KETAMINE/NaCl 50 MG/5 ML SYRINGE IV PRN (07:30)
--- NOTE | 2018-07-14 07:30 | NUR ---
DR LANDIN ON UNIT AND WAS NOTIFIED OF PT DECREASED BLOOD PRESSURE, DR STATED TO TURN THE PROPOFOL DOWN TO 45MCG/KG/MIN.
[2018-07-14] MEDS ORDERED: ETOMIDATE IV SOLN 20 MG/10 ML VIAL IV ONE (08:14)
[2018-07-14] MEDS ORDERED: SUCCINYLCHOLINE INJ 100 MG/5 ML SYR INJ ONE (08:14)
[2018-07-14] MEDS: PANTOPRAZOLE 40 MG (PROTONIX) VIAL IV SCH (08:30)
[2018-07-14] MEDS: RT-ALBUTEROL SULF 2.5 MG/3 ML PRE-MIX VIAL INH SCH ×4 (08:30→20:17)
[2018-07-14] MEDS: ENOXAPARIN 40 MG/0.4 ML (LOVENOX) SYR SC SCH (08:30)
[2018-07-14] MEDS: OSELTAMIVIR 6 MG/ML (TAMIFLU) 60 ML BOT PO SCH ×2 (08:30→21:11)
--- NOTE | 2018-07-14 09:24 | NUR ---
Notified CARLOS Bustamante of patient severity of the Flu. She requested Sub typing of Flu. Dr Keenan and Dianna in Micro Notified and order placed.
[2018-07-14] MEDS ORDERED: RT-ALBUINH IH (09:47)
--- NOTE | 2018-07-14 09:47 | NUR ---
UNABLE TO SPEAK WITH THE PATIENT ABOUT HER MEDICATIONS AT THIS TIME. FAMILY STATES SHE DID NOT TAKE ANYTHING ON A REGULAR BASIS OR OTC. SHE HAD A RESCUE INHALER SHE WAS USING NEEDED. THEY STATE SHE DOES NOT HAVE A PRIMARY PHARMACY AT THIS TIME.
--- NOTE | 2018-07-14 10:05 | Physical Therapy Progress Note ---
Therapy Progress Note Patient is currently on mechanical ventilator. PT will require new orders when patient is medically stable and able to actively participate with skilled therapy. EDI ELIZABETH PT Jul 14, 2018 10:05
--- NOTE | 2018-07-14 10:39 | NUR ---
DR LANDIN NOTIFIED OF PT ELEVATED TEMPERATURE, NEW ORDERS RECEIVED FOR TYLENOL.
[2018-07-14] MEDS ORDERED: APAP 325 MG/10.15 ML LIQ (TYLENOL) UDC PO PRN (10:45)
[2018-07-14] MEDS ORDERED: APAP 325 MG/10.15 ML LIQ (TYLENOL) UDC ONE (10:48)
--- NOTE | 2018-07-14 11:46 | NUR ---
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
[2018-07-14] MEDS: inSUlin ASPART (NovoLOG) 1 UNIT/0.01 ML (CHARGE PER UNIT) SQ SCH ×3 (12:00→23:40)
--- NOTE | 2018-07-14 13:07 | NUR ---
THIS RN NOTIFIED DR LANDIN OF PT VITALS, URINE OUTPUT AND CURRENT PROPOFOL RATE AT 30MCG/KG/MIN. NEW ORDERS RECEIVED.
--- NOTE | 2018-07-14 13:08 | NUR ---
TUBE FEEDING RECOMMENDATIONS: RECOMMEND PULMOCARE @ 60 ML/HR TO PROVIDE 2160 KCAL, 90 GRAMS PROTEIN, 1130 ML FREE WATER. PT WILL NEED ADDITIONAL 1500 ML FLUID PER DAY BETWEEN FLUSHES AND IVF.
--- NOTE | 2018-07-14 13:13 | Pulmonary Progress Note ---
Standard Progress Note Progress Notes Time Seen by Provider: 13:10 RN called to let me know pt is still hypotensive. Assessment & Plan Acute respiratory failure -Continue ventilator therapy -Nimbex, propofol 50, Fentanyl 75 -Will trial off Nimbex gtt this AM -Preg test is neg AsthmaAE -SVNS Q2 alternate albuterol and duoneb. -Add pulmicort to SVN -Solumedrol 60 IV Q 6 -S/p Magsulfate -IVF NS at 125 Severe sepsis secondary to influezna with hypotension - r/o shock -Hypotension started after increasing sedation this morning and d/Cing nimbex -She is requiring a lot of propofol and Fentanyl -Give 30cc/kg of IVF -Start Levophed -Give a 500cc NS bolus -Monitor Influenza -Start Tamiflu -pt did not have influ vaccination Hyperkalemia -Change IVF to NS take out KCL Tobacco use -Education Focused Exam Time of Focused Exam: 22:25 AYAZ LANDIN DO Jul 14, 2018 13:13
[2018-07-14] MEDS ORDERED: NS IV ONE (13:15)
--- NOTE | 2018-07-14 14:38 | Occ Therapy Progress Note ---
Therapy Progress Note Patient is intubated & on mechanical ventilator. OT will require new orders when pt is medically stable & able to actively participate in skilled therapy. ELIZABETH BURNHAM OT Jul 14, 2018 14:38
--- NOTE | 2018-07-14 15:34 | History & Physical-Hospitalist ---
History of Present Illness HPI/Chief Complaint The patient is a 43-year-old white female whom I have known since her high school years. She presented to the emergency room yesterday with shortness of breath and impending respiratory failure. She was intubated and paralyzed for the purpose of mechanical ventilation. She is sedated and intubated and unable to give any history at this time. It is noted that her lowest pH prior to intubation was 7.16. Her carbon dioxide was 72. Her tox screen was positive for amphetamine and benzos. Source: RN/, old records Exam Limitations: no limitations Date Seen 07/14/18 Time Seen by a Provider: 15:29 Attending Physician Aurelia Narayan MD PCP No,Local Physician Referring Physician Date of Admission Jul 13, 2018 at 18:45 Home Medications & Allergies Home Medications Reviewed patient Home Medication Reconciliation performed by pharmacy medication reconciliations nanoscience technician and/or nursing. Patients Allergies have been reviewed. Allergies Allergies Coded Allergies No Known Drug Allergies (Unverified07/13/18) Past Mizipxx-Qvsyca-Gnnkjj Hx Past Med/Social Hx: Reviewed Nursing Past Med/Soc Hx Patient Social History Alcohol Use: Denies Use Recreational Drug Use: No Smoking Status: Current Everyday Smoker Type Used: Cigarettes Recent Foreign Travel: No Contact w/other who traveled: No Recent Hopitalizations: No Recent Infectious Disease Expo: No Seasonal Allergies Seasonal Allergies: No Past Medical History History of Blood Disorders: No Physical Exam Physical Exam Vital Signs Vital Signs - First Documented 07/13/18 07/13/18 17:03 20:25 Temp 99.6 Pulse 138 Resp 42 B/P (MAP) 142/92 (109) Pulse Ox 80 O2 Delivery OxyMask O2 Flow Rate 10.00 FiO2 100 Capillary Refill : Less Than 3 Seconds Height, Weight, BMI Height: 5'7.00" Weight: 218lbs. 3.0oz. 98.282397mz; 33.7 BMI Method:Stated Results Results/Procedures Labs Laboratory Tests 07/13/18 17:10 07/14/18 03:10 Patient resulted labs reviewed. Clinical Quality Measures DVT/VTE Risk/Contraindication: Risk Factor Score Per Nursin RFS Level Per Nursing on Admit: 4+=Very High CHRIS VINES MD Jul 14, 2018 15:34
--- NOTE | 2018-07-14 15:40 | NUR ---
Pastoral care visit, provided support and prayer, pt intubated, pts mother and daughters are at bedside, offered support.
[2018-07-14] MEDS ORDERED: NOREPINEPHRINE 4 MG in NS (IVPB) 250 ML IV SCH (18:00)
[2018-07-15] VITALS (32 sets, daily range): BP systolic 91–129; BP diastolic 8–85
[2018-07-15] MEDS: RT-ALBUTEROL SULF 2.5 MG/3 ML PRE-MIX VIAL INH SCH ×2 (00:06→04:41)
[2018-07-15] MEDS: DEXMEDETOMIDINE INJECTION 200 MCG in NS (IVPB) 50 ML IV SCH ×7 (00:26→23:40)
[2018-07-15] MEDS: CISATRACURIUM INJECTION 100 MG in NS (IVPB) 200 ML IV SCH (00:26)
[2018-07-15] MEDS: AZITHROMYCIN 500 MG/NS 250 ML IVPB IV SCH ×2 (02:04)
[2018-07-15] MEDS: cefTRIAXone 1,000 MG/SWFI 10 ML IV PUSH IV SCH ×2 (02:04)
[2018-07-15] MEDS: LORazepam INJ 2 MG/ML (ATIVAN) VIAL IVP PRN (02:09)
[2018-07-15] MEDS: RT-ALBUTEROL/IPRATROPIUM 3 ML (DUONEB) VIAL INH SCH ×6 (03:03→22:22)
[2018-07-15] MEDS: RT-BUDESONIDE NEBS 0.5 MG/2ML (PULMICORT) AMP INH SCH ×3 (03:03→22:22)
[2018-07-15 03:33] LABS: BASOPHILS % (AUTO) 0 % (0-10); EOSINOPHILS % (AUTO) 0 % (0-10); HEMATOCRIT 30 % (35-52); HEMOGLOBIN 9.4 G/DL (11.5-16.0); LYMPHOCYTES # (AUTO) 0.4 X 10^3 (1.0-4.0); LYMPHOCYTES % (AUTO) 3 % (12-44); MEAN CORPUSCULAR HEMOGLOBIN 27 PG (25-34); MEAN CORPUSCULAR HGB CONC 31 G/DL (32-36); MEAN CORPUSCULAR VOLUME 87 FL (80-99); MEAN PLATELET VOLUME 9.4 FL (7.4-10.4); MONOCYTES # (AUTO) 0.5 X 10^3 (0.0-1.0); MONOCYTES % (AUTO) 3 % (0-12); NEUTROPHILS # (AUTO) 12.7 X 10^3 (1.8-7.8); NEUTROPHILS % (AUTO) 94 % (42-75); PLATELET COUNT 330 10^3/uL (130-400); RED CELL DISTRIBUTION WIDTH 17.1 % (10.0-14.5); WHITE BLOOD COUNT 13.5 10^3/uL (4.3-11.0)
[2018-07-15] MEDS: NS IV 1000 ML 1,000 ML IV SCH ×3 (03:34→19:32)
[2018-07-15] MEDS: ARTIFICIAL TEARS OINT (LACRI-LUBE) 3.5 GM TUBE OU SCH ×6 (03:34→23:48)
[2018-07-15 03:48] LABS: BUN/CREATININE RATIO 21; CARBON DIOXIDE 19 MMOL/L (21-32); CHLORIDE 115 MMOL/L (98-107); CREATININE SERUM 0.73 MG/DL (0.60-1.30); GFR ESTIMATED > 60; GLUCOSE 142 MG/DL (70-105); MAGNESIUM 2.3 MG/DL (1.8-2.4); PHOSPHORUS 2.8 MG/DL (2.3-4.7); POTASSIUM 4.2 MMOL/L (3.6-5.0); SODIUM 141 MMOL/L (135-145)
[2018-07-15 03:51] LABS: ABG BASE EXCESS -5.1 MMOL/L (-2.5-2.5); ABG OXYGEN SATURATION 98 % (94-100); ABG PCO2 42 MMHG (35-45); ABG PO2 84 MMHG (79-93); ABG TCO2 21.8 MMOL/L (21.0-31.0)
[2018-07-15 03:55] LABS: ALLENS TEST POSITIVE; INSPIRED O2 35%; PATIENT TEMP 96.8; VENTILATOR YES
[2018-07-15] MEDS: MAGNESIUM 1 GM/100 ML IVPB 100 ML IV SCH (05:07)
[2018-07-15] MEDS: inSUlin ASPART (NovoLOG) 1 UNIT/0.01 ML (CHARGE PER UNIT) SQ SCH ×4 (05:07→23:48)
[2018-07-15] MEDS: POTASSIUM CL 10MEQ/50ML IVPB 50 ML IV SCH (05:07)
[2018-07-15] MEDS: KCL 20 MEQ TAB (K-DUR) PO SCH (05:07)
[2018-07-15] MEDS ORDERED: DEXMEDETOMIDINE INJECTION 200 MCG in NS (IVPB) 50 ML IV SCH (05:30)
--- NOTE | 2018-07-15 05:32 | Pulmonary Progress Note ---
Subjective Time Seen by a Provider: 06:32 Subjective/Events-last exam Pt is still on Levophed gtt. Sepsis Event Evaluation Height, Weight, BMI Height: 5'7.00" Weight: 218lbs. 3.0oz. 98.977507cn; 33.7 BMI Method:Stated Focused Exam Lactate Level 07/14/18 15:45: Lactic Acid Level 2.46*H 07/14/18 19:00: Lactic Acid Level 2.03*H 07/14/18 21:10: Lactic Acid Level 1.38 Time of Focused Exam: 22:25 Exam Exam Vital Signs Date Time Temp Pulse Resp B/P (MAP) Pulse Ox O2 Delivery O2 Flow Rate FiO2 07/15/18 04:36 93 25 100 35 07/15/18 04:00 94 25 103/59 (74) 100 Mechanical Ventilator 35.00 07/15/18 04:00 98 Mechanical Ventilator 35.00 07/15/18 03:55 96.8 07/15/18 03:04 94 25 100 35 07/15/18 03:00 96 25 97/56 (70) 100 Mechanical Ventilator 35.00 07/15/18 02:10 Mechanical Ventilator 07/15/18 02:00 97 24 112/62 (79) 98 Mechanical Ventilator 35.00 07/15/18 01:00 101 21 92/51 (65) 96 Mechanical Ventilator 35.00 07/15/18 01:00 101 07/15/18 00:19 96 25 96 35 07/15/18 00:00 99 11 100/63 (75) 97 Mechanical Ventilator 35.00 07/15/18 00:00 96 Mechanical Ventilator 35.00 07/14/18 23:27 98.6 07/14/18 23:24 Mechanical Ventilator 07/14/18 23:00 97 25 90/51 (64) 97 Mechanical Ventilator 35.00 07/14/18 22:46 93 40 97 35 07/14/18 22:00 96 24 102/62 (75) 97 Mechanical Ventilator 35.00 07/14/18 21:00 98 25 103/57 (72) 96 Mechanical Ventilator 35.00 07/14/18 20:18 102 25 95 35 07/14/18 20:00 96 Mechanical Ventilator 35.00 07/14/18 20:00 97 11 106/66 (79) 97 Mechanical Ventilator 35.00 07/14/18 19:49 99.7 07/14/18 19:47 105/58 Mechanical Ventilator 35.00 07/14/18 19:00 101 07/14/18 19:00 101 15 107/61 (76) 99 Mechanical Ventilator 35.00 07/14/18 18:31 105 31 95 35 07/14/18 18:00 101 16 89/49 (62) 96 Mechanical Ventilator 45.00 07/14/18 17:00 104 11 106/50 (68) 99 Mechanical Ventilator 45.00 07/14/18 16:51 101 29 100 35 07/14/18 16:00 108 14 125/69 (87) 100 Mechanical Ventilator 45.00 07/14/18 16:00 100 Mechanical Ventilator 45 07/14/18 15:55 98.3 07/14/18 15:00 115 18 108/59 (75) 100 Mechanical Ventilator 45.00 07/14/18 14:44 104 32 98 45 07/14/18 14:00 106 17 85/51 (62) 100 Mechanical Ventilator 45.00 07/14/18 13:59 98.7 07/14/18 13:25 100.3 07/14/18 13:23 74/41 07/14/18 13:00 106 20 80/37 (51) 98 Mechanical Ventilator 45.00 07/14/18 13:00 104 07/14/18 12:07 102/54 (70) 07/14/18 12:01 100.3 07/14/18 12:00 100 Mechanical Ventilator 45 07/14/18 12:00 109 21 80/44 (56) 97 Mechanical Ventilator 45.00 07/14/18 11:56 110 25 97 45 07/14/18 11:00 110 17 87/39 (55) 97 Mechanical Ventilator 45.00 07/14/18 10:35 111 37 96 45 07/14/18 10:35 101.1 07/14/18 10:00 111 14 88/56 (67) 97 Mechanical Ventilator 45.00 07/14/18 09:00 111 17 91/49 (63) 97 Mechanical Ventilator 45.00 07/14/18 08:30 113 29 94 45 07/14/18 08:00 112 22 98/49 (65) 99 Mechanical Ventilator 45.00 07/14/18 08:00 99.5 07/14/18 08:00 100 Mechanical Ventilator 45 07/14/18 07:13 103/60 07/14/18 07:00 115 07/14/18 07:00 114 19 88/44 (59) 99 Mechanical Ventilator 45.00 07/14/18 06:44 113 29 94 45 07/14/18 06:23 113 33 98 45 07/14/18 06:05 113/60 07/14/18 06:00 112 23 113/60 (77) 98 Mechanical Ventilator 45.00 I & O 07/15/18 07:00 Intake Total 6094.04 ml Output Total 1570 ml Balance 4524.04 ml Height & Weight Height: 5'7.00" Weight: 218lbs. 3.0oz. 98.248394qf; 33.7 BMI Method:Stated General Appearance: Other (sedated on vent) HEENT: PERRL/EOMI, Other (ET tube in place) Neck: Full Range of Motion, Supple Respiratory: No Accessory Muscle Use, Decreased Breath Sounds, Wheezing Cardiovascular: Regular Rate, Rhythm (tachycardia 110), Normal Peripheral Pulses Capillary Refill: Less Than 3 Seconds Peripheral Pulses: 2+ Radial Pulses (R), 2+ Radial Pulses (L) Gastrointestinal: normal bowel sounds Extremity: Normal Capillary Refill, No Pedal Edema Skin: Normal Color, Warm/Dry Lymphatic: No Adenopathy Results Lab Laboratory Tests 07/13/18 17:10 07/14/18 03:10 07/15/18 03:30 Assessment/Plan Assessment/Plan Acute respiratory failure -Continue ventilator therapy -propofol Fentanyl -Nimbex is off -Add precedex -Preg test is neg Severe sepsis with septic shock secondary to influenza -IVF -Severe sepsis protocol -Wean Levophed if possible -Decrease propofol -Rocephin, azithromycin AsthmaAE -SVNS -Add pulmicort to SVN -Solumedrol 60 IV Q 6 -IVF NS at 125 Influenza - Tamiflu -pt did not have influ vaccination Tobacco use -Education AYAZ LANDIN DO Jul 15, 2018 05:32
[2018-07-15] MEDS: methylPREDNISolone 125 MG (Solu-MEDROL) VIAL IV SCH ×4 (05:51→23:48)
[2018-07-15] MEDS ORDERED: LORazepam INJ 2 MG/ML (ATIVAN) VIAL IVP PRN (06:00)
[2018-07-15] MEDS ORDERED: RT-ALBUTEROL/IPRATROPIUM 3 ML (DUONEB) VIAL INH PRN (07:00)
--- NOTE | 2018-07-15 08:24 | Physical Therapy Progress Note ---
Therapy Progress Note Patient remains on mechanical vent. PT will assess when patient is medically stable and able to actively participate with therapy. EDI ELIZABETH PT Jul 15, 2018 08:24
[2018-07-15] MEDS: PANTOPRAZOLE 40 MG (PROTONIX) VIAL IV SCH (09:09)
[2018-07-15] MEDS: OSELTAMIVIR 6 MG/ML (TAMIFLU) 60 ML BOT PO SCH ×2 (09:10→21:21)
[2018-07-15] MEDS: ENOXAPARIN 40 MG/0.4 ML (LOVENOX) SYR SC SCH (09:10)
[2018-07-15] MEDS: fentaNYL INJECTION 1,250 MCG in NS (IVPB) 250 ML IV SCH ×2 (09:15→16:25)
--- NOTE | 2018-07-15 09:58 | Diagnostic Imaging Report ---
Indication: Respiratory failure. Frontal chest obtained at 3:18 hours a.m. is compared to 07/14/2018. ET tube tip overlies mid trachea. NG tube tip overlies mid stomach. Heart is normal in size. Lungs are clear. There is no pneumothorax or pleural fluid. Impression: Stable life support lines. No new infiltrate or pneumothorax or pleural fluid. Dictated by: Dictated on workstation # [id number]
--- NOTE | 2018-07-15 11:49 | Occ Therapy Progress Note ---
Therapy Progress Note Patient remains on mechanical vent. OT will follow and assess patient when medically stable and able to participate. BRENNA ELLISON OT Jul 15, 2018 11:49
--- NOTE | 2018-07-15 16:42 | Progress Note-Hospitalist ---
Progress Note Progress Notes/Assess & Plan Date Seen 07/15/18 Time Seen by Provider: 16:39 Assessment & Plan The patient remains paralyzed and deeply sedated. She looks very comfortable. The monitor display shows all functions to be good. Physical exam: Breath sounds are full. CV is regular without murmur rate is controlled. Abdomen is obese and nontender. Extremities are symmetric and known edema is noted. Impression: Respiratory failure. 2.influenza. Plan: Continue ventilation and present measures. Focused Exam Lactate Level 07/14/18 15:45: Lactic Acid Level 2.46*H 07/14/18 19:00: Lactic Acid Level 2.03*H 07/14/18 21:10: Lactic Acid Level 1.38 Time of Focused Exam: 22:25 CHRIS VINES MD Jul 15, 2018 16:42
[2018-07-16] VITALS (26 sets, daily range): BP systolic 101–168; BP diastolic 64–104
[2018-07-16] MEDS: cefTRIAXone 1,000 MG/SWFI 10 ML IV PUSH IV SCH ×2 (01:11)
[2018-07-16] MEDS: AZITHROMYCIN 500 MG/NS 250 ML IVPB IV SCH ×2 (01:11)
[2018-07-16] MEDS: RT-ALBUTEROL/IPRATROPIUM 3 ML (DUONEB) VIAL INH SCH ×6 (01:29→22:23)
[2018-07-16] MEDS: DEXMEDETOMIDINE INJECTION 200 MCG in NS (IVPB) 50 ML IV SCH ×2 (02:56→05:46)
[2018-07-16 03:32] LABS: ABG BASE EXCESS -0.2 MMOL/L (-2.5-2.5); ABG OXYGEN SATURATION 95 % (94-100); ABG PCO2 49 MMHG (35-45); ABG PO2 77 MMHG (79-93); ABG TCO2 26.2 MMOL/L (21.0-31.0); BASOPHILS % (AUTO) 0 % (0-10); EOSINOPHILS % (AUTO) 0 % (0-10); HEMATOCRIT 31 % (35-52); HEMOGLOBIN 9.4 G/DL (11.5-16.0); LYMPHOCYTES # (AUTO) 1.3 X 10^3 (1.0-4.0); LYMPHOCYTES % (AUTO) 9 % (12-44); MEAN CORPUSCULAR HEMOGLOBIN 26 PG (25-34); MEAN CORPUSCULAR HGB CONC 30 G/DL (32-36); MEAN CORPUSCULAR VOLUME 87 FL (80-99); MEAN PLATELET VOLUME 9.5 FL (7.4-10.4); MONOCYTES # (AUTO) 0.6 X 10^3 (0.0-1.0); MONOCYTES % (AUTO) 4 % (0-12); NEUTROPHILS # (AUTO) 12.8 X 10^3 (1.8-7.8); NEUTROPHILS % (AUTO) 87 % (42-75); PLATELET COUNT 337 10^3/uL (130-400); RED CELL DISTRIBUTION WIDTH 17.3 % (10.0-14.5); WHITE BLOOD COUNT 14.6 10^3/uL (4.3-11.0)
[2018-07-16 03:37] LABS: ALLENS TEST YES-POS; INSPIRED O2 30%; PATIENT TEMP 100.7; VENTILATOR YES
[2018-07-16 03:39] LABS: ABG PH 7.33 (7.37-7.43)
[2018-07-16] MEDS: fentaNYL INJECTION 1,250 MCG in NS (IVPB) 250 ML IV SCH (03:50)
[2018-07-16] MEDS: ARTIFICIAL TEARS OINT (LACRI-LUBE) 3.5 GM TUBE OU SCH ×4 (04:09→16:27)
[2018-07-16 04:23] LABS: BUN/CREATININE RATIO 23; CALCIUM 8.2 MG/DL (8.5-10.1); CARBON DIOXIDE 24 MMOL/L (21-32); CHLORIDE 116 MMOL/L (98-107); CREATININE SERUM 0.66 MG/DL (0.60-1.30); GFR ESTIMATED > 60; GLUCOSE 100 MG/DL (70-105); MAGNESIUM 2.1 MG/DL (1.8-2.4); PHOSPHORUS 2.3 MG/DL (2.3-4.7); SODIUM 147 MMOL/L (135-145)
[2018-07-16] MEDS: POTASSIUM CL 10MEQ/50ML IVPB 50 ML IV SCH ×5 (04:32→07:02)
[2018-07-16] MEDS: KCL 20 MEQ TAB (K-DUR) PO SCH (04:33)
[2018-07-16] MEDS: MAGNESIUM 1 GM/100 ML IVPB 100 ML IV SCH (04:33)
[2018-07-16] MEDS ORDERED: 1/2 NS IV SOLUTION 1,000 ML IV SCH (05:00)
[2018-07-16] MEDS ORDERED: FUROSEMIDE 40 MG/4 ML INJ (LASIX) IVP ONE (05:00)
[2018-07-16] MEDS: NS IV 1000 ML 1,000 ML IV SCH (05:02)
--- NOTE | 2018-07-16 05:03 | Pulmonary Progress Note ---
Subjective Time Seen by a Provider: 05:06 Subjective/Events-last exam PT is sedated on vent. Sepsis Event Evaluation Height, Weight, BMI Height: 5'7.00" Weight: 229lbs. 1.0oz. 103.346157oj; 33.7 BMI Method:Stated Focused Exam Lactate Level 07/14/18 15:45: Lactic Acid Level 2.46*H 07/14/18 19:00: Lactic Acid Level 2.03*H 07/14/18 21:10: Lactic Acid Level 1.38 Time of Focused Exam: 22:25 Exam Exam Vital Signs Date Time Temp Pulse Resp B/P (MAP) Pulse Ox O2 Delivery O2 Flow Rate FiO2 07/16/18 04:06 92 32 96 30 07/16/18 04:00 100.2 07/16/18 04:00 98 Mechanical Ventilator 35.00 07/16/18 02:57 110 07/16/18 01:29 91 33 98 30 07/16/18 00:07 97 34 94 30 07/16/18 00:00 98 Mechanical Ventilator 35.00 07/16/18 00:00 100 32 114/87 (96) 93 Mechanical Ventilator 30.00 07/15/18 23:09 100 07/15/18 23:00 100 31 122/71 (88) 92 Mechanical Ventilator 30.00 07/15/18 22:23 77 25 96 35 07/15/18 22:00 79 24 128/82 (97) 95 Mechanical Ventilator 30.00 07/15/18 21:00 77 24 128/85 (99) 96 Mechanical Ventilator 30.00 07/15/18 20:00 98.2 Mechanical Ventilator 30.00 07/15/18 20:00 98 Mechanical Ventilator 35.00 07/15/18 20:00 81 24 122/79 (93) 94 Mechanical Ventilator 30.00 07/15/18 19:32 76 25 94 30 07/15/18 19:00 79 07/15/18 19:00 79 25 127/83 (98) 95 Mechanical Ventilator 30.00 07/15/18 18:49 79 07/15/18 18:00 81 24 122/8 (46) 92 Mechanical Ventilator 28.00 07/15/18 17:00 83 24 122/80 (94) 95 Mechanical Ventilator 28.00 07/15/18 16:05 82 25 95 30 07/15/18 16:00 98 Mechanical Ventilator 35.00 07/15/18 16:00 86 25 120/79 (93) 94 Mechanical Ventilator 28.00 07/15/18 15:00 89 24 114/73 (87) 94 Mechanical Ventilator 28.00 07/15/18 14:36 111/72 07/15/18 14:00 92 25 106/66 (79) 94 Mechanical Ventilator 28.00 07/15/18 13:00 95 24 99/57 (71) 94 Mechanical Ventilator 28.00 07/15/18 13:00 96 07/15/18 12:00 98 Mechanical Ventilator 35.00 07/15/18 12:00 97.3 07/15/18 12:00 108 21 114/65 (81) 94 Mechanical Ventilator 28.00 07/15/18 11:11 90 25 97 35 07/15/18 11:00 89 25 98/58 (71) 96 Mechanical Ventilator 35.00 07/15/18 10:30 97/56 07/15/18 10:00 89 25 95/56 (69) 96 Mechanical Ventilator 35.00 07/15/18 09:00 89 25 117/71 (86) 97 Mechanical Ventilator 35.00 07/15/18 08:00 98 Mechanical Ventilator 35.00 07/15/18 08:00 98 16 122/75 (91) 93 Mechanical Ventilator 35.00 07/15/18 08:00 97.6 07/15/18 07:32 92 26 99 35 07/15/18 07:00 83 24 108/66 (80) 99 Mechanical Ventilator 35.00 07/15/18 07:00 96 07/15/18 06:23 98/56 07/15/18 06:00 91 25 104/63 (77) 100 Mechanical Ventilator 35.00 07/15/18 05:00 93 25 98/55 (69) 99 Mechanical Ventilator 35.00 I & O 07/16/18 07:00 Intake Total 1954 ml Output Total 2650 ml Balance -696 ml Height & Weight Height: 5'7.00" Weight: 229lbs. 1.0oz. 103.925493mo; 33.7 BMI Method:Stated General Appearance: Other (sedated on vent) HEENT: PERRL/EOMI, Other (ET tube in place) Neck: Full Range of Motion, Supple Respiratory: No Accessory Muscle Use, Decreased Breath Sounds, Wheezing Cardiovascular: Regular Rate, Rhythm (tachycardia 110), Normal Peripheral Pulses Capillary Refill: Less Than 3 Seconds Peripheral Pulses: 2+ Radial Pulses (R), 2+ Radial Pulses (L) Gastrointestinal: normal bowel sounds Extremity: Normal Capillary Refill, No Pedal Edema Skin: Normal Color, Warm/Dry Lymphatic: No Adenopathy Results Lab Laboratory Tests 07/15/18 03:30 07/16/18 03:20 Assessment/Plan Assessment/Plan Acute respiratory failure -Continue ventilator therapy -propofol Fentanyl - precedex Severe sepsis with septic shock secondary to influenza -IVF -Severe sepsis protocol -Levophed is off -Rocephin, azithromycin AsthmaAE -SVNS -Add pulmicort to SVN -Solumedrol 40 IV Q 6 Hypernatremia/hyperchloremia -IVF- change to 1/2 NS at 30cc/hr Influenza - Tamiflu -pt did not have influ vaccination Tobacco use -Education AYAZ LANDIN DO Jul 16, 2018 05:03
[2018-07-16] MEDS ORDERED: 1/2 NS IV SOLUTION 1,000 ML IV ONE (05:21)
[2018-07-16] MEDS ORDERED: methylPREDNISolone 40 MG/ML (Solu-MEDROL) VIAL ONE (05:22)
[2018-07-16] MEDS: methylPREDNISolone 125 MG (Solu-MEDROL) VIAL IV SCH ×3 (05:45→18:21)
[2018-07-16] MEDS: inSUlin ASPART (NovoLOG) 1 UNIT/0.01 ML (CHARGE PER UNIT) SQ SCH ×3 (06:02→18:40)
[2018-07-16] MEDS: RT-BUDESONIDE NEBS 0.5 MG/2ML (PULMICORT) AMP INH SCH ×2 (06:31→22:23)
--- NOTE | 2018-07-16 08:32 | Diagnostic Imaging Report ---
Indication: Ventilator support. Time of exam 3:17 AM Correlation is made with prior study one day earlier. ET tube has tip above the julio. NG tube passes below the diaphragm. A right IJ line appears to course slightly lateral and may be located directed laterally in the subclavian vein. The heart remains enlarged. Lungs appear to be fairly clear. No significant infiltrate or failure is seen. No effusion or pneumothorax is identified. Impression: Stable chest since exam one day earlier. Right IJ line appears to be malpositioned in the right subclavian vein. Dictated by: Dictated on workstation # [id number]
[2018-07-16] MEDS: PANTOPRAZOLE 40 MG (PROTONIX) VIAL IV SCH (08:54)
--- NOTE | 2018-07-16 08:58 | Physical Therapy Progress Note ---
Therapy Progress Note Patient remains on mechanical vent. PT will assess when patient is medically stable and able to actively participate with therapy. VALERIY MCCALLUM PT Jul 16, 2018 08:58
[2018-07-16] MEDS: DEXMEDETOMIDINE INJECTION 1,000 MCG in NS (IVPB) 250 ML IV SCH (09:14)
[2018-07-16] MEDS: OSELTAMIVIR 6 MG/ML (TAMIFLU) 60 ML BOT PO SCH ×2 (09:14→20:54)
[2018-07-16] MEDS: ENOXAPARIN 40 MG/0.4 ML (LOVENOX) SYR SC SCH (09:14)
--- NOTE | 2018-07-16 09:42 | Progress Note-Hospitalist ---
Subjective HPI/CC On Admission The patient is a 43-year-old white female whom I have known since her high school years. She presented to the emergency room yesterday with shortness of breath and impending respiratory failure. She was intubated and paralyzed for the purpose of mechanical ventilation. She is sedated and intubated and unable to give any history at this time. It is noted that her lowest pH prior to intubation was 7.16. Her carbon dioxide was 72. Her tox screen was positive for amphetamine and benzos. Focused Exam Lactate Level 07/14/18 15:45: Lactic Acid Level 2.46*H 07/14/18 19:00: Lactic Acid Level 2.03*H 07/14/18 21:10: Lactic Acid Level 1.38 Time of Focused Exam: 22:25 Objective Exam Vital Signs Vital Signs Date Time Temp Pulse Resp B/P (MAP) Pulse Ox O2 Delivery O2 Flow Rate FiO2 07/16/18 09:15 98 25 96 30 07/16/18 08:00 117/66 (83) Mechanical Ventilator 30.00 07/16/18 04:00 100.2 Capillary Refill : Less Than 3 Seconds General Appearance: Other (sedated on vent) HEENT: PERRL/EOMI, Other (ET tube in place) Neck: Full Range of Motion, Supple Respiratory: No Accessory Muscle Use, Decreased Breath Sounds, Wheezing Cardiovascular: Regular Rate, Rhythm (tachycardia 110), Normal Peripheral Pulses Extremity: Normal Capillary Refill, No Pedal Edema Skin: Normal Color, Warm/Dry Lymphatic: No Adenopathy Results/Procedures Lab Laboratory Tests 07/16/18 03:20 Patient resulted labs reviewed. Assessment/Plan Assessment and Plan Assess & Plan/Chief Complaint Assessment: Acute respiratory failure now VDRF Severe sepsis with septic shock secondary to influenza Acute exacerbation Asthma Hypernatremia Smoker Clinical Quality Measures DVT/VTE Risk/Contraindication: Risk Factor Score Per Nursin RFS Level Per Nursing on Admit: 4+=Very High LEVAR WOOD DO Jul 16, 2018 09:42
[2018-07-16 10:09] LABS: ABG BASE EXCESS 2.8 MMOL/L (-2.5-2.5); ABG OXYGEN SATURATION 98 % (94-100); ABG PCO2 35 MMHG (35-45); ABG PH 7.49 (7.37-7.43); ABG PO2 85 MMHG (79-93); ABG TCO2 26.8 MMOL/L (21.0-31.0)
[2018-07-16 10:10] LABS: ALLENS TEST POSITIVE; INSPIRED O2 30%; PATIENT TEMP 100.4; VENTILATOR NO
[2018-07-16] MEDS ORDERED: ONDANSETRON 4 MG/2 ML (SDV) Z0FRAN IVP PRN (11:15)
--- NOTE | 2018-07-16 11:15 | NUR ---
Pastoral care visit.
[2018-07-16 13:30] LABS: ABG BASE EXCESS 5.2 MMOL/L (-2.5-2.5); ABG OXYGEN SATURATION 94 % (94-100); ABG PCO2 38 MMHG (35-45); ABG PH 7.49 (7.37-7.43); ABG PO2 62 MMHG (79-93); ABG TCO2 29.7 MMOL/L (21.0-31.0); ALLENS TEST POSITIVE; INSPIRED O2 50% VAPOTHERM; PATIENT TEMP 98.9; VENTILATOR NO
--- NOTE | 2018-07-16 13:38 | Pulmonary Progress Note ---
Standard Progress Note Progress Notes Date Seen by Provider: Jul 16, 2018 Time Seen by Provider: 13:20 Assessment & Plan Acute respiratory failure -PT is now extubated -D/C sedation Severe sepsis with septic shock secondary to influenza -IVF -Severe sepsis protocol -Levophed is off -Rocephin, azithromycin AsthmaAE -SVNS -Add pulmicort to SVN -Solumedrol 40 IV Q 6 Hypernatremia/hyperchloremia -Monitor Influenza - Tamiflu -pt did not have influ vaccination Tobacco use -Education Agitation/ICU psychosis -Called into room multiple times secondary to pt's agitation. Pt is pulling at lines. When I walk into room patient's mother is at bedside. She appears to be lethargic she is maybe a little agitated. D/C all sedation for now. PT does follow commands. I am going to repeat ABG to ensure respiratory status is ok. Pt will probably need a sitter. Pt denies CP or SOB she is just a little confused. Total time spent with patient not including this morning is 60min. Focused Exam Lactate Level 07/14/18 15:45: Lactic Acid Level 2.46*H 07/14/18 19:00: Lactic Acid Level 2.03*H 07/14/18 21:10: Lactic Acid Level 1.38 Time of Focused Exam: 22:25 AYAZ LANDIN DO Jul 16, 2018 13:38
[2018-07-16] MEDS ORDERED: morphine INJ 4 MG/ML 1 ML (VIAL/SYRINGE) IVP PRN (13:45)
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
--- NOTE | 2018-07-16 14:38 | Occ Therapy Progress Note ---
Therapy Progress Note Patient not alert ,very restless & semiconscious , not oriented . OT will assess when patient is medically stable and able to actively participate with therapy. ELIZABETH BURNHAM OT Jul 16, 2018 14:38
[2018-07-17] VITALS (10 sets, daily range): BP systolic 146–166; BP diastolic 92–104
[2018-07-17] MEDS: inSUlin ASPART (NovoLOG) 1 UNIT/0.01 ML (CHARGE PER UNIT) SQ SCH ×4 (00:43→23:42)
[2018-07-17] MEDS: methylPREDNISolone 125 MG (Solu-MEDROL) VIAL IV SCH ×4 (00:43→20:03)
[2018-07-17] MEDS: cefTRIAXone 1,000 MG/SWFI 10 ML IV PUSH IV SCH ×2 (02:12)
[2018-07-17] MEDS: AZITHROMYCIN 500 MG/NS 250 ML IVPB IV SCH ×2 (02:12)
[2018-07-17] MEDS: RT-ALBUTEROL/IPRATROPIUM 3 ML (DUONEB) VIAL INH SCH ×6 (02:21→21:28)
[2018-07-17 03:55] LABS: BASOPHILS % (AUTO) 0 % (0-10); EOSINOPHILS % (AUTO) 0 % (0-10); HEMATOCRIT 36 % (35-52); HEMOGLOBIN 11.3 G/DL (11.5-16.0); LYMPHOCYTES # (AUTO) 0.7 X 10^3 (1.0-4.0); LYMPHOCYTES % (AUTO) 6 % (12-44); MEAN CORPUSCULAR HEMOGLOBIN 27 PG (25-34); MEAN CORPUSCULAR HGB CONC 32 G/DL (32-36); MEAN CORPUSCULAR VOLUME 84 FL (80-99); MEAN PLATELET VOLUME 9.2 FL (7.4-10.4); MONOCYTES # (AUTO) 0.3 X 10^3 (0.0-1.0); MONOCYTES % (AUTO) 3 % (0-12); NEUTROPHILS # (AUTO) 9.9 X 10^3 (1.8-7.8); NEUTROPHILS % (AUTO) 91 % (42-75); PLATELET COUNT 401 10^3/uL (130-400); WHITE BLOOD COUNT 10.9 10^3/uL (4.3-11.0)
[2018-07-17 04:11] LABS: BUN/CREATININE RATIO 21; CALCIUM 8.8 MG/DL (8.5-10.1); CARBON DIOXIDE 25 MMOL/L (21-32); CHLORIDE 105 MMOL/L (98-107); CREATININE SERUM 0.63 MG/DL (0.60-1.30); GFR ESTIMATED > 60; GLUCOSE 99 MG/DL (70-105); MAGNESIUM 2.1 MG/DL (1.8-2.4); PHOSPHORUS 3.4 MG/DL (2.3-4.7); POTASSIUM 3.7 MMOL/L (3.6-5.0); SODIUM 144 MMOL/L (135-145)
--- NOTE | 2018-07-17 05:17 | NUR ---
dr frances at bedside, orders to dc central line, [place] and vapotherm.
[2018-07-17] MEDS: DEXMEDETOMIDINE INJECTION 1,000 MCG in NS (IVPB) 250 ML IV SCH (05:18)
[2018-07-17] MEDS: MAGNESIUM 1 GM/100 ML IVPB 100 ML IV SCH (05:18)
[2018-07-17] MEDS: RT-BUDESONIDE NEBS 0.5 MG/2ML (PULMICORT) AMP INH SCH ×2 (07:28→21:20)
--- NOTE | 2018-07-17 09:07 | Diagnostic Imaging Report ---
Indication: Asthma and respiratory failure. Comparison made with prior examination from 07/16/2018 Findings: There is cardiomegaly. There is some patchy bibasilar atelectasis and/or pneumonitis. There is no pleural effusion or pneumothorax. The mediastinum is unremarkable. ET and NG tubes have been removed. Central venous catheter has its tip in superior vena cava. IMPRESSION: Minimal extubation with some mild bibasilar subsegmental atelectasis and/or pneumonitis. Dictated by: Dictated on workstation # [id number]
[2018-07-17] MEDS: PANTOPRAZOLE 40 MG (PROTONIX) VIAL IV SCH (09:35)
[2018-07-17] MEDS: OSELTAMIVIR 6 MG/ML (TAMIFLU) 60 ML BOT PO SCH ×2 (09:35→20:24)
[2018-07-17] MEDS: ENOXAPARIN 40 MG/0.4 ML (LOVENOX) SYR SC SCH (09:35)
--- NOTE | 2018-07-17 09:46 | Progress Note-Hospitalist ---
Subjective HPI/CC On Admission Date Seen by Provider: Jul 17, 2018 Time Seen by Provider: 09:15 The patient is a 43-year-old white female whom I have known since her high school years. She presented to the emergency room yesterday with shortness of breath and impending respiratory failure. She was intubated and paralyzed for the purpose of mechanical ventilation. She is sedated and intubated and unable to give any history at this time. It is noted that her lowest pH prior to intubation was 7.16. Her carbon dioxide was 72. Her tox screen was positive for amphetamine and benzos. Subjective/Events-last exam Pt was extubated yesterday afternoon successfully. Family at the bedside constantly. Very anxious and nauseated. Has multiple psych issues. Will transfer to fourth floor. Zofran will be given. PT and OT will be ordered. Review of Systems General: Fatigue Gastrointestinal: Nausea Focused Exam Lactate Level 07/14/18 21:10: Lactic Acid Level 1.38 Time of Focused Exam: 22:25 Objective Exam Vital Signs Vital Signs Date Time Temp Pulse Resp B/P (MAP) Pulse Ox O2 Delivery O2 Flow Rate FiO2 07/17/18 17:46 97 Nasal Cannula 5.00 07/17/18 16:00 98.6 90 26 160/99 (119) 07/17/18 12:00 40 Capillary Refill : Less Than 3 Seconds General Appearance: WD/WN, Chronically ill, Moderate Distress, Other (sedated on vent) HEENT: PERRL/EOMI, Other (ET tube in place) Neck: Full Range of Motion, Supple Respiratory: No Accessory Muscle Use, Decreased Breath Sounds, Wheezing Cardiovascular: Regular Rate, Rhythm (tachycardia 110), Normal Peripheral Pulses Extremity: Normal Capillary Refill, No Pedal Edema Neurologic/Psychiatric: Alert, Depressed Affect Skin: Normal Color, Warm/Dry Lymphatic: No Adenopathy Results/Procedures Lab Laboratory Tests 07/17/18 03:45 Patient resulted labs reviewed. Assessment/Plan Assessment and Plan Assess & Plan/Chief Complaint Assessment: Acute respiratory failure VDRF s/p extubation Severe sepsis with septic shock secondary to influenza Acute exacerbation Asthma Hypernatremia Smoker Mental illness Nausea Plan: Nebs Iv steroids Anti-emetics Diagnosis/Problems Diagnosis/Problems (1) Acute respiratory failure with hypoxia and hypercapnia Status: Resolved Resolution Date/Time: 07/17/18 @ 19:47 (2) Asthma exacerbation Status: Acute Qualifiers: Asthma severity: unspecified severity Asthma persistence: unspecified Qualified Codes: J45.901 - Unspecified asthma with (acute) exacerbation (3) Influenza Status: Acute Clinical Quality Measures DVT/VTE Risk/Contraindication: Risk Factor Score Per Nursin RFS Level Per Nursing on Admit: 4+=Very High LEVAR WOOD DO Jul 17, 2018 09:46
--- NOTE | 2018-07-17 11:11 | Physician Query Clarification ---
PQ-Present on Admission Admission/Discharge Admission Date: Jul 13, 2018 at 18:45 Discharge Date: Question: This patient was admitted with acute respiratory failure with hypoxia and hypercapnia with acute exacerbation of asthma and influenza A on 07/13/18. Severe Sepsis was not documented until after admission on 07/[address] Keenan. Can you specify if this condition was present on admission? Please document a response below. PHYSICIAN RESPONSE Condition was Present on Admit: Other, specify below Explanation of clincal finding Please inquire with admit doctor unsure who that was In responding to this query, please exercise your independent professional judgment. The purpose of this communication is to more accurately reflect the complexity of your patients condition. The fact that a question is asked does not imply that any particular answer is desired or expected. Thank you for your timely response to this clarification. Requestors name: Debra Mueller [facility] Phone #ext [phone] or [phone] THIS PHYSICIAN QUERY FORM IS A PERMANENT PART OF THE MEDICAL RECORD DEBRA MUELLER Jul 17, 2018 11:11 LEVAR WOOD DO Jul 17, 2018 17:54
--- NOTE | 2018-07-17 11:12 | Physical Therapy Evaluation ---
PT Evaluation-General Medical Diagnosis Admission Date Jul 13, 2018 at 18:45 Medical Diagnosis: Asthma exacerbation, Influenza A Onset Date: Jul 13, 2018 Therapy Diagnosis Therapy Diagnosis: Decreased mobility, weakness Height/Weight Height (Feet): 5 Height (Inches): 7.00 Weight (Pounds): 210 Weight (Ounces): 3.0 Precautions Precautions/Isolations: Droplet Isolation Weight Bear Status Right Lower Extremity: Right Weight Bearing/Tolerated Left Lower Extremity: Left Weight Bearing/Tolerated Referral Physician: Dr. Narayan Reason for Referral: Evaluation/Treatment Medical History Pertinent Medical History: Smoking Additional Medical History Asthma, drug use (methamphetamines, benzos) Current History POV to ER with c/o SOA and is cynotic Reviewed History: Yes Social History Home: Single Level Current Living Status: Significant Other Prior/Core FIM Prior Level of Function Therapy Code Descriptions/Definitions Functional [place] Measure: 0=Not Assessed/NA 4=Minimal Assistance 1=Total Assistance 5=Supervision or Setup 2=Maximal Assistance 6=Modified [place] 3=Moderate Assistance 7=Complete [place] Therapy Quality Codes: 6 Independent with activity with or without an assistive device 5 Patient requires set up or clean up by helper. Patient completes activity by themselves 4 Supervision or touching assist (CGA). [place] provide cues , steadying assist 3 The helper provides less than half the effort to complete the activity 2 The helper provides more than half the effort to complete the activity 1 Dependent. The helper does all the effort to complete an activity 7 Patient refused to complete or attempt activity 9 The patient did not perform the activity before the current illness or injury 88 Not attempted due to Medical conditions or safety concerns Functional Abilities and Goals: Independent: Patient completed the activities by him/herself, with or without an assistive device, with no assistance from a helper. Needed Some Help: Patient needed partial assistance from another person to complete activities. Dependent: A helper completed the activities for the patient. Unknown: Not Applicable: Bed Mobility: 7 Transfers (B,C,W/C) (FIM): 7 Gait: 7 Indoor Mobility (Ambulation): Independent Stairs: Unknown Prior Devices Use: None PT Evaluation-Current Subjective Pt in bed and agrees to PT with family in room. Objective Patient Orientation: Person, Situation Attachments: Oxygen (5L) ROM/Strength ROM Lower Extremities WNL Strength Lower Extremities RLE hamstrings, quads (4/5), DF/PF (3+/5); LLE hamstrings, quads (4/5), DF/PF (4 -/5) Neuromuscular (Tone, Coordination, Reflexes) NT Sensory Vision: Functional Hearing: Functional Sensation Right Lower Extremit: Intact Sensation Left Lower Extremity: Intact Transfers Therapy Code Descriptions/Definitions Functional [place] Measure: 0=Not Assessed/NA 4=Minimal Assistance 1=Total Assistance 5=Supervision or Setup 2=Maximal Assistance 6=Modified [place] 3=Moderate Assistance 7=Complete [place] Transfers (B, C, W/C) (FIM): 2 Scootin Supine to/from Sit: 5 Sit to/from Stand: 2 Balance Sitting Static: Fair Sitting Dynamic: Fair Standing Static: Fair Standing Dynamic: Fair Assessment/Needs Pt able to perform bed mobility and get to EOB with SBA. Pt able to remain EOB for 3 mins with min A for balance. Pt SaO2 ranged (84-98%) during tx. Pt BP at end of tx 161/64. Pt was able to perform sit<>stand transfer with max A x1 and side stepped to recliner 2'. Pt is in recliner with all needs met. PT will increase activity as pt is able. Rehab Potential: Fair Post Rehab Potential-Barriers: co-morbidities, lifestyle habits PT Short Term Goals Short Term Goals Time Frame: Jul 24, 2018 Transfers (B,C,W/C) (FIM): 4 Gait (FIM): 2 Distance (FIM): 1=146-43 ft Gait Distance Comment: 50' Gait Level of Assist: 4 Gait Assistive Device: None, FWW PT Plan Problem List Problem List: Activity Tolerance, Functional Strength, Safety, Balance, Gait, Transfer, Bed Mobility, ROM Treatment/Plan Treatment Plan: Continue Plan of Care Treatment Plan: Bed Mobility, Education, Functional Activity Luz, Functional Strength, Gait, Safety, Therapeutic Exercise, Transfers Treatment Duration: Jul 24, 2018 Frequency: 6 times per week Estimated Hrs Per Day: .25 hour per day Patient and/or Family Agrees t: Yes Safety Risks/Education Patient Education: Transfer Techniques, Correct Positioning, Safety Issues Teaching Recipient: Patient, Family Teaching Methods: Demonstration, Discussion Discharge Recommendations Therapy D/C Recommendations: Home w/ Family Support Time/GCodes Time In: 1036 Time Out: 1049 Total Billed Treatment Time: 13 Total Billed Treatment 1 visit EVM 13 min CLARA,EDI PT Jul 17, 2018 11:12
--- NOTE | 2018-07-17 13:58 | Occupational Therapy Eval ---
OT Evaluation-General/PLF Medical Diagnosis Admission Date Jul 13, 2018 at 18:45 Medical Diagnosis: Asthma exacerbation, Influenza A Onset Date: Jul 13, 2018 Therapy Diagnosis Therapy Diagnosis: Weakness, Decreased ADLs Height/Weight Height (Feet): 5 Height (Inches): 7.00 Weight (Pounds): 210 Weight (Ounces): 3.0 Precautions Precautions/Isolations: Droplet Isolation Safety Interventions: None Weight Bear Status Weight Bearing Restriction: Weight Bearing/Tolerated Referral Physician: Dr. Narayan Referral Reason: Activity Tolerance, Self Care, Evaluation/Treatment, Strengthening/ROM Medical History Pertinent Medical History: Smoking Current History Pt. has been on ventilator. Extubated yesterday. Reviewed History: Yes Social History Home: Single Level Current Living Status: Significant Other ADL-Prior Level of Function Therapy Code Descriptions/Definitions Functional [place] Measure: 0=Not Assessed/NA 4=Minimal Assistance 1=Total Assistance 5=Supervision or Setup 2=Maximal Assistance 6=Modified [place] 3=Moderate Assistance 7=Complete [place] Therapy Quality Codes: 6 Independent with activity with or without an assistive device 5 Patient requires set up or clean up by helper. Patient completes activity by themselves 4 Supervision or touching assist (CGA). [place] provide cues , steadying assist 3 The helper provides less than half the effort to complete the activity 2 The helper provides more than half the effort to complete the activity 1 Dependent. The helper does all the effort to complete an activity 7 Patient refused to complete or attempt activity 9 The patient did not perform the activity before the current illness or injury 88 Not attempted due to Medical conditions or safety concerns Functional Abilities and Goals: Independent: Patient completed the activities by him/herself, with or without an assistive device, with no assistance from a helper. Needed Some Help: Patient needed partial assistance from another person to complete activities. Dependent: A helper completed the activities for the patient. Unknown: Not Applicable: ADL PLOF Comments Pt. was independent with daily skills. Pt. is very groggy throughout treatment and has difficulty explaining previous history. Self Care: Unknown Functional Cognition: Unknown DME/Equipment Comments Pt. does not state what equipment she has at home, if any. OT Current Status Subjective Pt. reports no pain. Pt. is slurring words and nursing states that she has been given nausea medicine. Appearance Pt. up in reclining chair. Nursing getting ready to discharge to 4th floor. Mental Status/Objective Patient Orientation: Unable to Assess ADL-Treatment Therapy Code Descriptions/Definitions Functional [place] Measure: 0=Not Assessed/NA 4=Minimal Assistance 1=Total Assistance 5=Supervision or Setup 2=Maximal Assistance 6=Modified [place] 3=Moderate Assistance 7=Complete [place] Therapy Quality Codes: 6 Independent with activity with or without an assistive device 5 Patient requires set up or clean up by helper. Patient completes activity by themselves 4 Supervision or touching assist (CGA). [place] provide cues , steadying assist 3 The helper provides less than half the effort to complete the activity 2 The helper provides more than half the effort to complete the activity 1 Dependent. The helper does all the effort to complete an activity 7 Patient refused to complete or attempt activity 9 The patient did not perform the activity before the current illness or injury 88 Not attempted due to Medical conditions or safety concerns Lower Body Dressing (FIM): 1 Transfers (B, C, W/C) (FIM): 3 (Pt. stands with mod assist overall to transfer to wheelchair. Pt. groggy and has dififculty keeping her eyes open throughout session. Unable to give full history.) Other Treatments After transferring to wheelchair in room, all needs were met. Pt. waiting to be transported to fourth floor. Education OT Patient Education: Correct positioning, Modified ADL techniques, Progress toward Goal/Update tx plan, Purpose of tx/functional activities, Reviewed precautions, Rehab process, Transfer techniques Teaching Recipient: Patient Teaching Methods: Demonstration, Discussion Response to Teaching: Verbalize Understanding OT Short Term Goals Short Term Goals Time Frame: Jul 24, 2018 Eating(FIM): 5 Grooming(FIM): 3 Bathing(FIM): 3 Upper Body Dressing(FIM): 3 Lower Body Dressing(FIM): 3 Toileting(FIM): 4 Transfers (B,C,W/C) (FIM): 4 Toilet/Commode Transfer(FIM): 4 Shower Transfer(FIM): 4 Additional Short Term Goals: 1-Demonstrate ADL Tasks, 2-Verbalize Understanding , 3-ImproveStrength/Luz 1=Demonstrate adherence to instructed precautions during ADL tasks. 2=Patient will verbalize/demonstrate understanding of assistive devices/ modifications for ADL. 3=Patient will improve strength/tolerance for activity to enable patient to perform ADL's. OT Certified Nuclear Medicine Technologist Goals Shelter Goals Time Frame: Jul 31, 2018 Eating (FIM): 6 Grooming(FIM): 6 Bathing(FIM): 5 Upper Body Dressing(FIM): 5 Lower Body Dressing(FIM): 5 Toileting(FIM): 5 Transfers (B,C,W/C) (FIM): 5 Toilet/Commode Transfer(FIM): 5 Shower Transfer(FIM): 5 Additional Goals: 1-Demonstrate ADL Tasks, 2-Verbalize Understanding, 3- ImproveStrength/Luz 1=Demonstrate adherence to instructed precautions during ADL tasks. 2=Patient will verbalize/demonstrate understanding of assistive devices/ modifications for ADL. 3=Patient will improve strength/tolerance for activity to enable patient to perform ADL's. OT Education/Plan Problem List/Assessment Assessment: Decreased Activ Tolerance, Decreased UE Strength, Dependent Transfers, Impaired Bed Mobility, Impaired Cognition, Impaired Coordination, Impaired Funct Balance, Impaired I ADL's, Impaired Self-Care Skills, Restricted Funct UE ROM Discharge Recommendations Plan/Recommendations: Continue POC Treatment Plan/Plan of Care Treatment,Training & Education: Yes Patient would benefit from OT for education, treatment and training to promote independence in ADL's, mobility, safety and/or upper extremity function for ADL' s. Plan of Care: ADL Retraining, Functional Mobility, UE Funct Exercise/Act Treatment Duration: Jul 31, 2018 Frequency: 5 times per week Estimated Hrs Per Day: .5 hour per day Agreement: Yes Rehab Potential: Fair Time/GCodes Start Time: 12:05 Stop Time: 12:18 Total Time Billed (hr/min): 13 Billed Treatment Time 1, WILBUR ARMENTA OT Jul 17, 2018 13:58
--- NOTE | 2018-07-17 14:39 | Pulmonary Progress Note ---
Subjective Time Seen by a Provider: 05:00 Subjective/Events-last exam Still SOB however doing better. Sepsis Event Evaluation Height, Weight, BMI Height: 5'7.00" Weight: 210lbs. 3.0oz. 95.508913yk; 33.7 BMI Method:Stated Focused Exam Lactate Level 07/14/18 15:45: Lactic Acid Level 2.46*H 07/14/18 19:00: Lactic Acid Level 2.03*H 07/14/18 21:10: Lactic Acid Level 1.38 Time of Focused Exam: 22:25 Exam Exam Vital Signs Date Time Temp Pulse Resp B/P (MAP) Pulse Ox O2 Delivery O2 Flow Rate FiO2 07/17/18 12:00 97.6 07/17/18 12:00 94 Vapotherm 10.00 40 07/17/18 11:00 106 13 161/101 (121) 99 Nasal Cannula 5.00 07/17/18 10:54 99 High Flow N/C 5.00 07/17/18 10:19 94 Vapotherm 10.00 40 07/17/18 10:00 101 17 166/104 (124) 100 Nasal Cannula 5.00 07/17/18 10:00 97.3 07/17/18 09:00 101 16 158/102 (120) 98 Nasal Cannula 5.00 07/17/18 08:00 94 Vapotherm 10.00 40 07/17/18 08:00 113 22 94 Nasal Cannula 5.00 07/17/18 07:30 Nasal Cannula 5.00 07/17/18 07:28 99 Vapotherm 10.00 40 07/17/18 07:19 94 07/17/18 07:00 89 98 Vapotherm 40.00 10.00 07/17/18 04:00 111 37 148/96 (113) 93 Vapotherm 40.00 10.00 07/17/18 04:00 94 Vapotherm 10.00 40 07/17/18 03:24 99.0 07/17/18 03:00 98 22 146/97 (113) 97 Vapotherm 40.00 10.00 07/17/18 02:21 95 Vapotherm 10.00 40 07/17/18 02:00 95 17 95 Vapotherm 40.00 10.00 07/17/18 01:00 97 07/17/18 01:00 97 19 155/96 (115) 94 Vapotherm 40.00 10.00 07/17/18 00:00 104 28 155/96 (115) 91 Vapotherm 40.00 10.00 07/17/18 00:00 98.5 07/16/18 23:56 94 Vapotherm 10.00 50 07/16/18 23:00 105 27 168/104 (125) 93 Vapotherm 40.00 10.00 07/16/18 22:33 102 24 95 Vapotherm 40.00 10.00 07/16/18 22:23 95 Vapotherm 10.00 50 07/16/18 22:00 100 23 157/89 (111) 95 Vapotherm 50.00 10.00 07/16/18 21:00 104 20 149/94 (112) 93 Vapotherm 50.00 10.00 07/16/18 20:00 99.0 07/16/18 20:00 113 31 163/94 (117) 91 Vapotherm 50.00 10.00 07/16/18 20:00 94 Vapotherm 10.00 50 07/16/18 19:00 108 07/16/18 19:00 108 36 162/95 (117) 95 Vapotherm 50.00 10.00 07/16/18 18:00 94 Vapotherm 10.00 50 07/16/18 18:00 101 21 163/96 (118) 94 Vapotherm 50.00 10.00 07/16/18 17:00 100 25 144/79 (100) 92 Vapotherm 50.00 10.00 07/16/18 16:00 94 Vapotherm 10.00 50 07/16/18 16:00 80 24 136/95 (109) 95 Vapotherm 07/16/18 15:00 84 22 136/88 (104) 95 Vapotherm I & O 07/17/18 07:00 Intake Total 2032 ml Output Total 50108 ml Balance -8618 ml Height & Weight Height: 5'7.00" Weight: 210lbs. 3.0oz. 95.932901vv; 33.7 BMI Method:Stated General Appearance: Anxious, Mild Distress HEENT: PERRL/EOMI Neck: Full Range of Motion, Supple Respiratory: No Accessory Muscle Use, Decreased Breath Sounds, Wheezing Cardiovascular: Normal Peripheral Pulses, Tachycardia Capillary Refill: Less Than 3 Seconds Peripheral Pulses: 2+ Radial Pulses (R), 2+ Radial Pulses (L) Gastrointestinal: normal bowel sounds Extremity: Normal Capillary Refill, No Pedal Edema Skin: Normal Color, Warm/Dry Lymphatic: No Adenopathy Results Lab Laboratory Tests 07/16/18 03:20 07/17/18 03:45 Assessment/Plan Assessment/Plan Acute respiratory failure -Extubated yesterday -Doing well off vent Severe sepsis secondary to influenza- improved -IVF AsthmaAE -SVNS -Add pulmicort to SVN -Solumedrol 40 IV Q 6 Influenza - Tamiflu -pt did not have influ vaccination Tobacco use -Education AYAZ LANDIN DO Jul 17, 2018 14:39
[2018-07-17] MEDS ORDERED: morphine INJ 4 MG/ML 1 ML (VIAL/SYRINGE) IVP PRN (17:15)
[2018-07-18 00:47] VITALS: BP 145/84
[2018-07-18] MEDS: methylPREDNISolone 125 MG (Solu-MEDROL) VIAL IV SCH (01:07)
[2018-07-18] MEDS ORDERED: cefTRIAXone 1,000 MG IV (ROCEPHIN) VIAL ONE (01:52)
[2018-07-18] MEDS ORDERED: WATER (STERILE) FOR INJECTION 10 ML ONE (01:53)
[2018-07-18] MEDS: AZITHROMYCIN 500 MG/NS 250 ML IVPB IV SCH ×2 (02:01)
[2018-07-18] MEDS: cefTRIAXone 1,000 MG/SWFI 10 ML IV PUSH IV SCH ×2 (02:01)
[2018-07-18] MEDS: RT-ALBUTEROL/IPRATROPIUM 3 ML (DUONEB) VIAL INH SCH ×5 (02:20→22:03)
[2018-07-18 04:00] VITALS: BP 167/92
[2018-07-18 04:34] LABS: BASOPHILS % (AUTO) 1 % (0-10); EOSINOPHILS % (AUTO) 0 % (0-10); HEMATOCRIT 38 % (35-52); LYMPHOCYTES # (AUTO) 1.1 X 10^3 (1.0-4.0); LYMPHOCYTES % (AUTO) 12 % (12-44); MEAN CORPUSCULAR HEMOGLOBIN 26 PG (25-34); MEAN CORPUSCULAR HGB CONC 32 G/DL (32-36); MEAN CORPUSCULAR VOLUME 83 FL (80-99); MEAN PLATELET VOLUME 9.9 FL (7.4-10.4); MONOCYTES # (AUTO) 0.4 X 10^3 (0.0-1.0); MONOCYTES % (AUTO) 5 % (0-12); NEUTROPHILS # (AUTO) 7.2 X 10^3 (1.8-7.8); NEUTROPHILS % (AUTO) 83 % (42-75); PLATELET COUNT 372 10^3/uL (130-400); WHITE BLOOD COUNT 8.7 10^3/uL (4.3-11.0)
[2018-07-18 04:46] LABS: BUN/CREATININE RATIO 22; CALCIUM 9.3 MG/DL (8.5-10.1); CARBON DIOXIDE 24 MMOL/L (21-32); CHLORIDE 105 MMOL/L (98-107); CREATININE SERUM 0.65 MG/DL (0.60-1.30); GFR ESTIMATED > 60; GLUCOSE 130 MG/DL (70-105); MAGNESIUM 2.1 MG/DL (1.8-2.4); POTASSIUM 3.6 MMOL/L (3.6-5.0); SODIUM 141 MMOL/L (135-145)
[2018-07-18] MEDS: MAGNESIUM 1 GM/100 ML IVPB 100 ML IV SCH (05:37)
[2018-07-18] MEDS: inSUlin ASPART (NovoLOG) 1 UNIT/0.01 ML (CHARGE PER UNIT) SQ SCH ×3 (05:37→18:10)
--- NOTE | 2018-07-18 06:02 | Pulmonary Progress Note ---
Subjective Time Seen by a Provider: 06:02 Subjective/Events-last exam Pt is doing better. Sepsis Event Evaluation Height, Weight, BMI Height: 5'7.00" Weight: 210lbs. 3.0oz. 95.055974qw; 33.7 BMI Method:Stated Focused Exam Time of Focused Exam: 22:25 Exam Exam Vital Signs Date Time Temp Pulse Resp B/P (MAP) Pulse Ox O2 Delivery O2 Flow Rate FiO2 07/18/18 04:00 98.6 91 18 167/92 (117) 94 Nasal Cannula 3.00 07/18/18 02:20 97 High Flow N/C 4.00 07/18/18 00:47 99.1 87 18 145/84 (104) 97 Nasal Cannula 4.00 07/17/18 21:20 97 High Flow N/C 5.00 07/17/18 21:00 97 Nasal Cannula 5.00 07/17/18 20:00 98.0 96 22 159/93 (115) 98 Nasal Cannula 5.00 07/17/18 17:46 97 Nasal Cannula 5.00 07/17/18 16:00 98.6 90 26 160/99 (119) 97 Nasal Cannula 5.00 07/17/18 14:45 98 High Flow N/C 5.00 07/17/18 13:00 99.0 98 16 153/92 (112) 98 Nasal Cannula 5.00 07/17/18 12:00 97.6 07/17/18 12:00 94 Vapotherm 10.00 40 07/17/18 11:00 106 13 161/101 (121) 99 Nasal Cannula 5.00 07/17/18 10:54 99 High Flow N/C 5.00 07/17/18 10:19 94 Vapotherm 10.00 40 07/17/18 10:00 101 17 166/104 (124) 100 Nasal Cannula 5.00 07/17/18 10:00 97.3 07/17/18 09:00 101 16 158/102 (120) 98 Nasal Cannula 5.00 07/17/18 08:00 94 Vapotherm 10.00 40 07/17/18 08:00 113 22 94 Nasal Cannula 5.00 07/17/18 07:30 Nasal Cannula 5.00 07/17/18 07:28 99 Vapotherm 10.00 40 07/17/18 07:19 94 07/17/18 07:00 89 98 Vapotherm 40.00 10.00 I & O 07/18/18 07:00 Intake Total 1080 ml Balance 1080 ml Height & Weight Height: 5'7.00" Weight: 210lbs. 3.0oz. 95.466664jf; 33.7 BMI Method:Stated General Appearance: No Apparent Distress, WD/WN, Chronically ill HEENT: PERRL/EOMI Neck: Full Range of Motion, Supple Respiratory: No Accessory Muscle Use, Decreased Breath Sounds, Wheezing Cardiovascular: Regular Rate, Rhythm (tachycardia 110), Normal Peripheral Pulses Capillary Refill: Less Than 3 Seconds Peripheral Pulses: 2+ Radial Pulses (R), 2+ Radial Pulses (L) Gastrointestinal: normal bowel sounds Extremity: Normal Capillary Refill, No Pedal Edema Neurologic/Psychiatric: Alert, Depressed Affect Skin: Normal Color, Warm/Dry Lymphatic: No Adenopathy Results Lab Laboratory Tests 07/17/18 03:45 07/18/18 03:50 Assessment/Plan Assessment/Plan s/p Acute respiratory failure -S/P ventilator -Cultures are all negative - D/c Abx s/p Severe sepsis secondary to influenza- improved -IVF AsthmaAE - much improved -SVNS - pulmicort to SVN -Solumedrol 40 IV Q 6 -- Change to prednisone taper Influenza - Tamiflu -pt did not have influ vaccination Tobacco use -Education AYAZ LANDIN DO Jul 18, 2018 06:02
[2018-07-18] MEDS: RT-BUDESONIDE NEBS 0.5 MG/2ML (PULMICORT) AMP INH SCH ×2 (06:28→22:03)
[2018-07-18] MEDS ORDERED: IBUPROFEN 600 MG (MOTRIN) TAB PO PRN (07:00)
[2018-07-18 08:00] VITALS: BP 144/92
[2018-07-18] MEDS: OSELTAMIVIR 6 MG/ML (TAMIFLU) 60 ML BOT PO SCH (08:33)
[2018-07-18] MEDS: ENOXAPARIN 40 MG/0.4 ML (LOVENOX) SYR SC SCH (08:33)
[2018-07-18] MEDS: predniSONE 10 MG TAB PO SCH (08:34)
[2018-07-18] MEDS: PANTOPRAZOLE 40 MG (PROTONIX) VIAL IV SCH (08:34)
--- NOTE | 2018-07-18 10:21 | Occ Therapy Progress Note ---
Therapy Progress Note 1020 Family declined OT, indicating that pt had just dozed off. visit TATE BASSETT OT Jul 18, 2018 10:21
--- NOTE | 2018-07-18 11:00 | NUR ---
CALLED DR LANDIN'S OFFICE TO SCHEDULE FOLLOW-UP APPOINTMENT, NO ANSWER. LEFT MESSAGE REQUESTING FOLLOW-UP APPOINTMENT IN 2-3 WEEKS
--- NOTE | 2018-07-18 11:41 | Progress Note-Hospitalist ---
Subjective HPI/CC On Admission Date Seen by Provider: Jul 18, 2018 Time Seen by Provider: 10:00 The patient is a 43-year-old white female whom I have known since her high school years. She presented to the emergency room yesterday with shortness of breath and impending respiratory failure. She was intubated and paralyzed for the purpose of mechanical ventilation. She is sedated and intubated and unable to give any history at this time. It is noted that her lowest pH prior to intubation was 7.16. Her carbon dioxide was 72. Her tox screen was positive for amphetamine and benzos. Subjective/Events-last exam Patient resting in mother at the bedside Breathing a lot better Maintained on DVT prophylaxis On prednisone taper dose Nebulizer treatments are ordered along with Pulmicort twice daily Will work on recovery and strengthening Review of Systems Pulmonary: Dyspnea Focused Exam Time of Focused Exam: 22:25 Objective Exam Vital Signs Vital Signs Date Time Temp Pulse Resp B/P (MAP) Pulse Ox O2 Delivery O2 Flow Rate FiO2 07/18/18 10:45 94 High Flow N/C 4.00 07/18/18 08:00 99.4 97 18 144/92 (109) 07/17/18 12:00 40 Capillary Refill : Less Than 3 Seconds General Appearance: No Apparent Distress, WD/WN, Chronically ill, Other ( sleeping) HEENT: PERRL/EOMI Neck: Full Range of Motion, Supple Respiratory: No Accessory Muscle Use, Decreased Breath Sounds, Wheezing Cardiovascular: Regular Rate, Rhythm (tachycardia 110), Normal Peripheral Pulses Extremity: Normal Capillary Refill, No Pedal Edema Neurologic/Psychiatric: Alert, Depressed Affect Skin: Normal Color, Warm/Dry Lymphatic: No Adenopathy Results/Procedures Lab Laboratory Tests 07/18/18 03:50 Patient resulted labs reviewed. Assessment/Plan Assessment and Plan Assess & Plan/Chief Complaint Assessment: Acute respiratory failure VDRF s/p extubation Severe sepsis with septic shock secondary to influenza Acute exacerbation Asthma Hypernatremia Smoker Mental illness Nausea WILLAM Plan: Nebs Iv steroids Anti-emetics Recovery Diagnosis/Problems Diagnosis/Problems (1) Acute respiratory failure with hypoxia and hypercapnia Status: Resolved Resolution Date/Time: 07/17/18 @ 19:47 (2) Asthma exacerbation Status: Acute Qualifiers: Asthma severity: unspecified severity Asthma persistence: unspecified Qualified Codes: J45.901 - Unspecified asthma with (acute) exacerbation (3) Influenza Status: Acute Clinical Quality Measures DVT/VTE Risk/Contraindication: Risk Factor Score Per Nursin RFS Level Per Nursing on Admit: 4+=Very High LEVAR WOOD DO Jul 18, 2018 11:41
[2018-07-18 12:00] VITALS: BP 148/89
--- NOTE | 2018-07-18 12:22 | Physical Therapy Daily Note ---
PT Daily Note-Current Subjective Pt agreeable to PT session. Pain Numeric Pain Scale: 0-No Pain Appearance At beginning of session, Pt R side lying in bed, pt's mom was concerned about getting pt up because she is sleeping so soundly, but pt awoke and was willing to participate with PT At end of session, pt sitting up in recliner with LE's elevated, call light, phone and bedside table within reach. Denies need for bathroom at this time. Family present. Mental Status Attachments: Oxygen Transfers Therapy Code Descriptions/Definitions Functional [place] Measure: 0=Not Assessed/NA 4=Minimal Assistance 1=Total Assistance 5=Supervision or Setup 2=Maximal Assistance 6=Modified [place] 3=Moderate Assistance 7=Complete [place] Therapy Quality Codes: 6 Independent with activity with or without an assistive device 5 Patient requires set up or clean up by helper. Patient completes activity by themselves 4 Supervision or touching assist (CGA). [place] provide cues , steadying assist 3 The helper provides less than half the effort to complete the activity 2 The helper provides more than half the effort to complete the activity 1 Dependent. The helper does all the effort to complete an activity 7 Patient refused to complete or attempt activity 9 The patient did not perform the activity before the current illness or injury 88 Not attempted due to Medical conditions or safety concerns Transfers (B, C, W/C) (FIM): 5 Scootin Rollin Supine to/from Sit: 5 Sit to/from Stand: 5 Bed to/from Chair: 5 Pt with decreased safety awareness during transfers, requires instruction for hand placement before sitting in chair and demonstrates uncontrolled descent. Pt does not follow through with instruction given. x6 sit to from stand transfers performed throughout tx session. Weight Bearing Right Lower Extremity: Right Weight Bearing/Tolerated Left Lower Extremity: Left Weight Bearing/Tolerated Gait Training Distance (FIM): 1=up to 49 ft Distance: 15 Gait Level of Assist: 5 Gait Persons Needed: 1 Gait Assistive Device: FWW Pt sporadic with some movements, demonstrates decrease safety awareness, consistently states I am fine and wants to do it herself. Used walker for 1st 10 ft then pushed it away and started reaching for furniture. Unsteady but without LOB. Treatments Gait, transfer, safety, functional mobility, instruction with importance of sitting up through the day and increasing activity Assessment decreased safety awareness and balance limitations with all activities performed this am. PT Short Term Goals Short Term Goals Time Frame: Jul 24, 2018 Transfers (B,C,W/C) (FIM): 4 Gait (FIM): 2 Distance (FIM): 1=721-18 ft Gait Distance Comment: 50' Gait Level of Assist: 4 Gait Assistive Device: None, FWW PT Plan Treatment/Plan Treatment Plan: Continue Plan of Care Treatment Plan: Bed Mobility, Education, Functional Activity Luz, Functional Strength, Gait, Safety, Therapeutic Exercise, Transfers Treatment Duration: Jul 24, 2018 Frequency: 6 times per week Estimated Hrs Per Day: .25 hour per day Patient and/or Family Agrees t: Yes Safety Risks/Education Patient Education: Gait Training, Transfer Techniques, Reviewed Precautions, Instructions to Caregiver, Safety Issues Teaching Recipient: Patient, Family Teaching Methods: Demonstration, Discussion Response to Teaching: Verbalize Understanding, Reinforcement Needed Time/GCodes Time In: 1139 Time Out: 1156 Total Billed Treatment Time: 17 Total Billed Treatment FA x 1 unit SILVERIO LÓPEZ PTA Jul 18, 2018 12:22
--- NOTE | 2018-07-18 13:40 | NUR ---
PATIENT IS HAVING A POSSIBLE ANXIETY ATTACK. CALLED DR QUIROZ. NEW ORDER FOR XANAX
[2018-07-18] MEDS: ALPRAZolam 0.25 MG (XANAX) TAB PO PRN (13:52)
[2018-07-18 16:22] VITALS: BP 165/89
--- NOTE | 2018-07-18 18:06 | NUR ---
PATIENT LOST BOTH IV SITES. CALLED DR QUIROZ. IT IS OKAY TO LEAVE THEM OUT.
--- NOTE | 2018-07-18 18:41 | NUR ---
PATIENT'S MOTHER REPORTS THAT THE PATIENT IS HAVING ANOTHER ANXIETY ATTACK LIKE SHE DID EARLIER TODAY. SHE THINKS IT MAY BE PTSD RESULTING FROM THE THINKING THAT SHE WAS GOING TO WHEN SHE WAS ADMITTED. THIS RN COVERED THE PATIENT WITH A WARM BLANKET AND REASSURED HER THAT SHE IS GOING TO BE FINE. SHE IS GOING TO REST AND CONCENTRATED ON SLOWING HER BREATHING DOWN. SHE CAN HAVE ANOTHER XANAX AROUND 1930.
[2018-07-18 19:06] VITALS: BP 152/91
[2018-07-18] MEDS ORDERED: OSELTAMIVIR 75 MG (TAMIFLU) CAPSULE PO SCH (21:00)
[2018-07-19] VITALS: BP 162/87
[2018-07-19] MEDS: ALPRAZolam 0.25 MG (XANAX) TAB PO PRN (02:17)
[2018-07-19 04:36] VITALS: BP 125/64
[2018-07-19 05:10] LABS: BASOPHILS % (AUTO) 0 % (0-10); EOSINOPHILS % (AUTO) 0 % (0-10); HEMATOCRIT 36 % (35-52); HEMOGLOBIN 11.8 G/DL (11.5-16.0); LYMPHOCYTES # (AUTO) 4.6 X 10^3 (1.0-4.0); LYMPHOCYTES % (AUTO) 38 % (12-44); MEAN CORPUSCULAR HEMOGLOBIN 27 PG (25-34); MEAN CORPUSCULAR HGB CONC 32 G/DL (32-36); MEAN CORPUSCULAR VOLUME 82 FL (80-99); MONOCYTES # (AUTO) 0.9 X 10^3 (0.0-1.0); MONOCYTES % (AUTO) 8 % (0-12); NEUTROPHILS # (AUTO) 6.5 X 10^3 (1.8-7.8); NEUTROPHILS % (AUTO) 54 % (42-75); PLATELET COUNT 465 10^3/uL (130-400); RED CELL DISTRIBUTION WIDTH 15.9 % (10.0-14.5); WHITE BLOOD COUNT 12.1 10^3/uL (4.3-11.0)
[2018-07-19 05:38] LABS: BUN/CREATININE RATIO 16; CALCIUM 8.9 MG/DL (8.5-10.1); CARBON DIOXIDE 25 MMOL/L (21-32); CHLORIDE 105 MMOL/L (98-107); CREATININE SERUM 0.62 MG/DL (0.60-1.30); GFR ESTIMATED > 60; GLUCOSE 137 MG/DL (70-105); POTASSIUM 2.8 MMOL/L (3.6-5.0); SODIUM 141 MMOL/L (135-145)
--- NOTE | 2018-07-19 06:54 | Pulmonary Progress Note ---
Subjective Time Seen by a Provider: 06:52 Subjective/Events-last exam Pt appears to be doing better Sepsis Event Evaluation Height, Weight, BMI Height: 5'7.00" Weight: 210lbs. 3.0oz. 95.468965gt; 33.7 BMI Method:Stated Focused Exam Time of Focused Exam: 22:25 Exam Exam Vital Signs Date Time Temp Pulse Resp B/P (MAP) Pulse Ox O2 Delivery O2 Flow Rate FiO2 07/19/18 04:36 97.7 82 18 125/64 (84) 97 Nasal Cannula 3.00 07/19/18 01:14 97 Nasal Cannula 3.50 07/19/18 00:00 98.0 83 16 162/87 (112) 94 Nasal Cannula 3.00 07/18/18 22:08 Nasal Cannula 3.50 07/18/18 22:03 93 Nasal Cannula 3.50 07/18/18 21:00 High Flow N/C 3.00 07/18/18 19:06 97.2 95 16 152/91 (111) 93 07/18/18 16:22 98.0 102 18 165/89 (114) 94 Nasal Cannula 4.00 07/18/18 14:27 High Flow N/C 4.00 07/18/18 12:00 99.5 109 20 148/89 (108) 97 Nasal Cannula 5.00 07/18/18 10:45 94 High Flow N/C 4.00 07/18/18 09:00 94 High Flow N/C 4.00 07/18/18 08:00 99.4 97 18 144/92 (109) 94 Nasal Cannula 5.00 I & O 07/19/18 07:00 Intake Total 2470 ml Balance 2470 ml Height & Weight Height: 5'7.00" Weight: 210lbs. 3.0oz. 95.912090vm; 33.7 BMI Method:Stated General Appearance: No Apparent Distress, WD/WN, Chronically ill, Other ( sleeping) HEENT: PERRL/EOMI Neck: Full Range of Motion, Supple Respiratory: No Accessory Muscle Use, Decreased Breath Sounds, Wheezing Cardiovascular: Regular Rate, Rhythm (tachycardia 110), Normal Peripheral Pulses Capillary Refill: Less Than 3 Seconds Peripheral Pulses: 2+ Radial Pulses (R), 2+ Radial Pulses (L) Gastrointestinal: normal bowel sounds Extremity: Normal Capillary Refill, No Pedal Edema Neurologic/Psychiatric: Alert, Depressed Affect Skin: Normal Color, Warm/Dry Lymphatic: No Adenopathy Results Lab Laboratory Tests 07/18/18 03:50 07/19/18 04:55 Assessment/Plan Assessment/Plan s/p Acute respiratory failure -S/P ventilator -Cultures are all negative - D/c Abx s/p Severe sepsis secondary to influenza- improved -IVF AsthmaAE - much improved -SVNS - pulmicort to SVN -prednisone taper Influenza - Tamiflu -pt did not have influ vaccination Tobacco use -Education Pt is ok for discharge from pulmonary standpoint. AYAZ LANDIN DO Jul 19, 2018 06:54
[2018-07-19] MEDS: RT-BUDESONIDE NEBS 0.5 MG/2ML (PULMICORT) AMP INH SCH (07:03)
[2018-07-19] MEDS: RT-ALBUTEROL/IPRATROPIUM 3 ML (DUONEB) VIAL INH SCH ×2 (07:03→09:38)
[2018-07-19 08:00] VITALS: BP 119/85
[2018-07-19] MEDS: ENOXAPARIN 40 MG/0.4 ML (LOVENOX) SYR SC SCH (08:51)
[2018-07-19] MEDS: predniSONE 10 MG TAB PO SCH (08:51)
[2018-07-19] MEDS ORDERED: PANTOPRAZOLE 40 MG (PROTONIX) TAB PO SCH (09:00)
--- NOTE | 2018-07-19 10:20 | Physical Therapy Daily Note ---
PT Daily Note-Current Subjective Pt agreeable to PT treatment this am. States she does not use a walker at home, but has been dragging right foot for a while. Pain Numeric Pain Scale: 0-No Pain Appearance Pt L side lying in bed upon arrival At end of session, pt supine in bed, call light, phone and bedside table within reach. Family member present in room before and after session. Observed pt up walking in hallway with walker unsupervised approx an hour after PT session this am, continues with R foot drop/dragging, slight unsteadiness but without LOB Transfers Therapy Code Descriptions/Definitions Functional [place] Measure: 0=Not Assessed/NA 4=Minimal Assistance 1=Total Assistance 5=Supervision or Setup 2=Maximal Assistance 6=Modified [place] 3=Moderate Assistance 7=Complete [place] Therapy Quality Codes: 6 Independent with activity with or without an assistive device 5 Patient requires set up or clean up by helper. Patient completes activity by themselves 4 Supervision or touching assist (CGA). [place] provide cues , steadying assist 3 The helper provides less than half the effort to complete the activity 2 The helper provides more than half the effort to complete the activity 1 Dependent. The helper does all the effort to complete an activity 7 Patient refused to complete or attempt activity 9 The patient did not perform the activity before the current illness or injury 88 Not attempted due to Medical conditions or safety concerns Transfers (B, C, W/C) (FIM): 6 Scootin Rollin Supine to/from Sit: 6 Sit to/from Stand: 6 Pt demo safe technique with all transfers performed this am Weight Bearing Right Lower Extremity: Right Weight Bearing/Tolerated Left Lower Extremity: Left Weight Bearing/Tolerated Gait Training Distance (FIM): 3=150 ft Distance: 200 Gait Level of Assist: 5 Gait Persons Needed: 1 Gait Assistive Device: FWW R foot drop/drag, decreased step height and length RLE, slight unsteadiness but self corrected, no LOB. Pt demo improved safety and gait quality with walker vs without AD. Treatments Gait transfer and safety Assessment Current Status: Good Progress improved balance although continues some compromised, would recommend pt continue using walker with front wheels upon dc from hospital for safety and decrease fall risk PT Short Term Goals Short Term Goals Time Frame: Jul 24, 2018 Transfers (B,C,W/C) (FIM): 4 Gait (FIM): 2 Distance (FIM): 3=664-65 ft Gait Distance Comment: 50' Gait Level of Assist: 4 Gait Assistive Device: None, FWW PT Plan Treatment/Plan Treatment Plan: Continue Plan of Care Treatment Plan: Bed Mobility, Education, Functional Activity Luz, Functional Strength, Gait, Safety, Therapeutic Exercise, Transfers Treatment Duration: Jul 24, 2018 Frequency: 6 times per week Estimated Hrs Per Day: .25 hour per day Patient and/or Family Agrees t: Yes Safety Risks/Education Patient Education: Gait Training, Transfer Techniques, Safety Issues Teaching Recipient: Patient Teaching Methods: Demonstration, Discussion Response to Teaching: Verbalize Understanding, Return Demonstration, Reinforcement Needed Discharge Recommendations Therapy D/C Recommendations: Home w/ Family Support Equpiment Recommendations-D/C: Front Wheeled Walker Time/GCodes Time In: 830 Time Out: 845 Total Billed Treatment Time: 15 Total Billed Treatment GT x 1 unit SILVERIO LÓPEZ PTA Jul 19, 2018 10:20
[2018-07-19] MEDS ORDERED: POTA10TA PO (10:44)
[2018-07-19] MEDS ORDERED: PRD10T PO (10:44)
[2018-07-19] MEDS ORDERED: KCL 20 MEQ TAB (K-DUR) PO NR (10:45)
--- NOTE | 2018-07-19 10:55 | Discharge Summary-Hospitalist ---
Diagnosis/Chief Complaint Date of Admission Jul 13, 2018 at 18:45 Date of Discharge July 19 at 1500 Discharge Date: Jul 19, 2018 Discharge Time: 15:00 Admission Diagnosis Acute respiratory failure influenza A Discharge Diagnosis Acute respiratory failure Asthma Influenza A Tobaccoism Hypokalemia (1) Acute respiratory failure with hypoxia and hypercapnia Status: Resolved (2) Asthma exacerbation Status: Acute (3) Influenza Status: Acute Discharge Summary Procedures/Consulations Mechanical Ventilation DR. Keenan Discharge Physical Exam Allergies: Coded Allergies: No Known Drug Allergies (Unverified , 07/13/18) Vitals & I&Os Vital Signs Date Time Temp Pulse Resp B/P (MAP) Pulse Ox O2 Delivery O2 Flow Rate FiO2 07/19/18 14:38 105 18 125/83 95 Room Air 0.00 07/19/18 12:00 97.8 07/17/18 12:00 40 General Appearance: No Apparent Distress, WD/WN HEENT: Normal ENT Inspection Respiratory: Chest Non Tender, Lungs Clear, Normal Breath Sounds, No Accessory Muscle Use, No Respiratory Distress Cardiovascular: Regular Rate, Rhythm, No Gallop, No Murmur Gastrointestinal: No Organomegaly, Non Tender, Soft Extremity: Non Tender, No Calf Tenderness Skin: Normal Color, Warm/Dry Neurologic/Psychiatric: Alert, Oriented x3, No Motor/Sensory Deficits, Normal Mood/Affect Hospital Course Was the Problem List Reviewed?: Yes This is a 43-year-old white female with a history of asthma and tobaccoism who was admitted in respiratory distress. She was intubated and placed in the ICU on a ventilator. Dr. Keenan saw the patient consultation managed her ventilator. She tested positive for influenza A. She was placed on aggressive pulmonary toilet and Nimbex. She was then successfully extubated and transferred to the floor and although somewhat weak she is 94 percent O2 sat on room air. Blood sugars of been elevated secondary to the steroids. The patient has been ambulating with a walker because of weakness and has a walker at home. She can ambulate in her room without assistance. At the time of discharge her potassium was found to be slightly low at 2.8 this will be replaced and she will be discharged with close follow-up with Dr. Keenan. Labs (last 24 hrs) Laboratory Tests 07/18/18 17:58: Glucometer 197H 07/19/18 04:55: White Blood Count 12.1H, Red Blood Count 4.42, Hemoglobin 11.8, Hematocrit 36, Mean Corpuscular Volume 82, Mean Corpuscular Hemoglobin 27, Mean Corpuscular Hemoglobin Concent 32, Red Cell Distribution Width 15.9H, Platelet Count 465H, Mean Platelet Volume 9.0, Neutrophils (%) (Auto) 54, Lymphocytes (%) (Auto) 38, Monocytes (%) (Auto) 8, Eosinophils (%) (Auto) 0, Basophils (%) (Auto) 0, Neutrophils # (Auto) 6.5, Lymphocytes # (Auto) 4.6H, Monocytes # (Auto) 0.9, Eosinophils # (Auto) 0.0, Basophils # (Auto) 0.0, Sodium Level 141, Potassium Level 2.8L, Chloride Level 105, Carbon Dioxide Level 25, Anion Gap 11, Blood Urea Nitrogen 10, Creatinine 0.62, Estimat Glomerular Filtration Rate > 60, BUN/ Creatinine Ratio 16, Glucose Level 137H, Calcium Level 8.9 07/19/18 13:55: Sodium Level 140, Potassium Level 3.9, Chloride Level 105, Carbon Dioxide Level 23, Anion Gap 12, Blood Urea Nitrogen 9, Creatinine 0.61, Estimat Glomerular Filtration Rate > 60, BUN/Creatinine Ratio 15, Glucose Level 129H, Calcium Level 9.4 Microbiology 07/13/18 Blood Culture - Final, Complete No growth 07/13/18 MRSA Screen - Final, Complete MRSA not isolated Patient resulted labs reviewed. Pending Labs Laboratory Tests 07/19/18 13:55: Sodium Level 140, Potassium Level 3.9, Chloride Level 105, Carbon Dioxide Level 23, Anion Gap 12, Blood Urea Nitrogen 9, Creatinine 0.61, Estimat Glomerular Filtration Rate > 60, BUN/Creatinine Ratio 15, Glucose Level 129, Calcium Level 9.4 Imaging: Reviewed Imaging Report Discussion & Recommendations Discharge Planning: >30 minutes discharge planning Discharge Home Medications: Active Scripts Active Prednisone 10 Mg Tab 50 Mg PO DAILY 10 Days Take 6 tabs(60mg)daily, decrease by 1 tab(10mg) every other day. K-Tab ER (Potassium Chloride) 10 Meq Tablet.er 10 Meq PO DAILY 7 Days Reported Proair Hfa (Albuterol Sulfate) 1 Puff Puff 2 Puff IH Q4H PRN Condition at discharge Stable Instructions to patient/family Please see electronic discharge instructions given to patient. Clinical Quality Measures DVT/VTE Risk/Contraindication: Risk Factor Score Per Nursin RFS Level Per Nursing on Admit: 4+=Very High Copy Copies To 1: AYAZ KEENAN DO Problem Qualifiers (1) Asthma exacerbation: Asthma severity: unspecified severity Asthma persistence: unspecified Qualified Codes: J45.901 - Unspecified asthma with (acute) exacerbation LINN QUIROZ MD Jul 19, 2018 10:55
[2018-07-19 12:00] VITALS: BP 125/83
[2018-07-19 14:18] LABS: BUN/CREATININE RATIO 15; CALCIUM 9.4 MG/DL (8.5-10.1); CARBON DIOXIDE 23 MMOL/L (21-32); CHLORIDE 105 MMOL/L (98-107); CREATININE SERUM 0.61 MG/DL (0.60-1.30); GFR ESTIMATED > 60; GLUCOSE 129 MG/DL (70-105); POTASSIUM 3.9 MMOL/L (3.6-5.0); SODIUM 140 MMOL/L (135-145)
[2018-07-19 14:38] VITALS: BP 125/83
--- NOTE | 2018-07-23 12:13 | Physician Query Clarification ---
PQ-Conflicting Diagnosis Admission/Discharge Admission Date: Jul 13, 2018 at 18:45 Discharge Date: Jul 19, 2018 at 14:43 The medical record reflects the following clinical scenario: History/Risk Factors: Acute respiratory failure with hypoxia Acute respiratory failure with hypercapnia Asthma exacerbation Clinical Findings:Admission vitals: T 99.6, P 138, Resp 42, BP 142/92, pulse ox 80. WBC 14.3 Lactic acid after admission on 07/14 was 2.02. Blood cultures-no growth. Treatment:IV Rocephin, IV Azithromycin Resp treatments- Mechanical Ventilation, Nimbex,propofol 50, Fentanyl 75. IV solu Medrol, albuterol and duoneb Your discharge summary does not give a diagnosis of severe sepsis with septic shock. Question: Do you agree with the impression of the Severe sepsis with septic shock per Dr. Keenan on 07/[address] Masters on 07/17 assessment and plan? Please document a response below. PHYSICIAN RESPONSE Do you agree w/Consulting Dx?: Yes In responding to this query, please exercise your independent professional judgment. The purpose of this communication is to more accurately reflect the complexity of your patients condition. The fact that a question is asked does not imply that any particular answer is desired or expected. Thank you for your timely response to this clarification. Requestors name: Debra Mueller [facility] Phone # ext [phone] or [phone] THIS PHYSICIAN QUERY FORM IS A PERMANENT PART OF THE MEDICAL RECORD DEBRA MUELLER Jul 23, 2018 12:13 LINN QUIROZ MD Jul 24, 2018 10:07
--- NOTE | 2018-07-23 12:26 | Physician Query Clarification ---
PQ-Present on Admission Admission/Discharge Admission Date: Jul 13, 2018 at 18:45 Discharge Date: Jul 19, 2018 at 14:43 Question: Severe sepsis with septic shock secondary to influenza was documented on 07/15 progress note-Dr. Keenan. Can you specify if sepsis was present on admission? Please document a response below. PHYSICIAN RESPONSE Condition was Present on Admit: Yes In responding to this query, please exercise your independent professional judgment. The purpose of this communication is to more accurately reflect the complexity of your patients condition. The fact that a question is asked does not imply that any particular answer is desired or expected. Thank you for your timely response to this clarification. Requestors name: Debra Mueller [facility] Phone # ext [phone] or [phone] THIS PHYSICIAN QUERY FORM IS A PERMANENT PART OF THE MEDICAL RECORD DEBRA MUELLER Jul 23, 2018 12:26 LINN QUIROZ MD Jul 25, 2018 11:11
--- NOTE | 2018-07-29 10:33 | Physician Query Clarification ---
PQ-Further Specificity Admission/Discharge Admission Date: Jul 13, 2018 at 18:45 Discharge Date: Jul 19, 2018 at 14:43 The medical record reflects the following clinical scenario: History/Risk Factors: Severe sepsis Acute Respiratory Failure Acute exacerbation of asthma Clinical Findings:Blood gases: pH &.25, pCO2 54, pO2 64, HCO3 22, Total CO2 23.6 , O2 sat 83, Base Excess -3.8. Treatment: Intubation and mechanical vent 10.00L/min Question: Can you further specify Acute Respiratory Failure etiology per the clinical indicators above? Please document below. 1. Acute respiratory failure due to both sepsis with influenza and acute exacerbation of asthma. 2. Acute respiratory failure due to sepsis with influenza. 3. Acute respiratory failure due to acute exacerbation of asthma. 4. Other, with explanation of the clinical findings. 5. Clinically undetermined, no explanation for the clinical findings. PHYSICIAN RESPONSE Can you specify per above: 1 In responding to this query, please exercise your independent professional judgment. The purpose of this communication is to more accurately reflect the complexity of your patients condition. The fact that a question is asked does not imply that any particular answer is desired or expected. Thank you for your timely response to this clarification. Requestors name: Debra Mueller [facility] Phone # ext [phone] or [phone] THIS PHYSICIAN QUERY FORM IS A PERMANENT PART OF THE MEDICAL RECORD DEBRA MUELLER Jul 29, 2018 10:33 LINN QUIROZ MD Jul 31, 2018 08:39
== END 2018-07-19 14:43 | disposition home or self-care (01) | DRG 871 ==
LOC: EDUNIT# 17:03 → ER 17:04 → ICU 18:45 → 4TH 07-17 12:31
PROVIDERS: ADMIT Family Medicine; ATTEND Family Medicine
PROC: 5A1945Z Respiratory Ventilation, 24-96 Consecutive Hours (ICD-10-PCS; principal; 2018-07-13)
PROC: 0BH17EZ Insertion of Endotracheal Airway into Trachea, Via Natural or Artificial Opening (ICD-10-PCS; 2018-07-13)
DX: A41.89 Other specified sepsis (principal); R65.21 Severe sepsis with septic shock; J10.1 Influenza due to other identified influenza virus with other respiratory manifestations; J96.01 Acute respiratory failure with hypoxia; J96.02 Acute respiratory failure with hypercapnia; J45.901 Unspecified asthma with (acute) exacerbation; F17.210 Nicotine dependence, cigarettes, uncomplicated; F99 Mental disorder, not otherwise specified; E87.0 Hyperosmolality and hypernatremia; I95.9 Hypotension, unspecified; E87.5 Hyperkalemia; E87.8 Other disorders of electrolyte and fluid balance, not elsewhere classified; R45.1 Restlessness and agitation
CPT/HCPCS: 31500; 36415; 36600; 71045; 71275; 80048; 80053; 80306; 82805; 82962; 83605; 83735; 83880; 84100; 84145; 84484; 84703; 85007; 85025; 85027; 85379; 87040; 87070; 87081; 87205; 87449; 87631; 87804; 93005; 94002; 94003; 94640; 94664; 94761; 94799; 96361; 96365; 96375; 99291

== ENCOUNTER 2018-10-01 09:11 | Outpatient (CLI) | payer OTHER ==
[~2018-10-01 09:11] MED LIST: POTA10TA PO; PRD10T PO; RT-ALBUINH IH
[2018-10-01] MEDS ORDERED: NS 250 ML (IVPB) BAG IV ONE (09:30)
[2018-10-01] MEDS ORDERED: IOHEXOL 350 MG/ML 100 ML (OMNIPAQUE 350) VIAL IV ONE (09:30)
[2018-10-01] MEDS ORDERED: HOLD METFORMIN - RECEIVED CONTRAST 20 ML VIAL IV SCH (09:30)
[2018-10-01 09:47] LABS: BUN/CREATININE RATIO 13; CREATININE SERUM 0.67 MG/DL (0.60-1.30); GFR ESTIMATED > 60
[2018-10-01] MEDS ORDERED: RT-ALBUTEROL SULF 2.5 MG/3 ML PRE-MIX VIAL ONE (10:08)
--- NOTE | 2018-10-01 11:50 | Diagnostic Imaging Report ---
PROCEDURE: CT chest with contrast only. TECHNIQUE: Multiple contiguous axial images were obtained through the chest after administration of intravenous contrast. Auto Exposure Controls were utilized during the CT exam to meet ALARA standards for radiation dose reduction. INDICATION: Cough and asthma. COMPARISON: Correlation is made with prior CT chest from 07/13/2018. FINDINGS: No axillary lymphadenopathy is detected. No hilar or mediastinal lymphadenopathy is detected. No pericardial or pleural fluid is detected. Previously noted airspace infiltrates identified in the bilateral upper and lower lobes have resolved. Nodule in the anterior aspect of the right upper lobe previous described appears smaller on today's study. Tiny subpleural nodule in the left upper lobe, image 29 also is less prominent than prior exam. There is nodular density in the right lower lobe at the level of the hemidiaphragm, image 44 measuring 11 mm. This is stable when compared with prior exam. Upper abdomen demonstrates a nonobstructing calculus in the right kidney. IMPRESSION: 1. Improved appearance to the chest since study from 07/13/2018. Previously noted patchy airspace infiltrates have resolved. Bilateral nodules are stable. No thoracic lymphadenopathy is seen. 2. Nonobstructing right renal calculus. Dictated by: Dictated on workstation # [id number]
[2018-10-01] MEDS ORDERED: RT-ALBUTEROL SULF 2.5 MG/3 ML PRE-MIX VIAL INH ONE (21:00)
== END 2018-10-01 12:00 | disposition home or self-care (01) ==
LOC: RT 09:11
PROVIDERS: ATTEND Nurse Practitioner Family
DX: R05 Cough (principal); R06.89 Other abnormalities of breathing; R06.00 Dyspnea, unspecified; R91.8 Other nonspecific abnormal finding of lung field; J30.9 Allergic rhinitis, unspecified; J98.4 Other disorders of lung; J18.8 Other pneumonia, unspecified organism; G47.10 Hypersomnia, unspecified; Z72.0 Tobacco use
CPT/HCPCS: 36415; 71260; 82565; 84520; 94060; 94726; 94729

== ENCOUNTER 2019-07-22 03:05 | Inpatient (IN) | payer SELFPAY ==
[~2019-07-22] VITALS: Ht 170 cm; Wt 91.3 kg
[2019-07-22] VITALS (8 sets, daily range): BP systolic 120–144; BP diastolic 72–83
--- NOTE | 2019-07-22 03:10 | NUR ---
DURING TRIAGE PT O2 SATS 87-88% ON RA WITH INCREASED WORK OF BREATHING AND SEMI TRIPOD POSITION. O2 PLACED AT 2L. O2 SATS INCREASED TO MID 90s. DR. BARAHONA AT BEDSIDE.
[2019-07-22] MEDS ORDERED: RT-ALBUTEROL/IPRATROPIUM 3 ML (DUONEB) VIAL ONE (03:13)
[2019-07-22] MEDS ORDERED: methylPREDNISolone 125 MG (Solu-MEDROL) VIAL IV STA (03:18)
[2019-07-22] MEDS ORDERED: NS IV 1000 ML 1,000 ML IV SCH ×2 (03:18)
--- NOTE | 2019-07-22 03:24 | ED Respiratory ---
General Chief Complaint: Respiratory Problems Stated Complaint: SOB Source: patient Exam Limitations: no limitations (KELLY BARAHONA) History of Present Illness Date Seen by Provider: Jul 22, 2019 Time Seen by Provider: 03:04 Initial Comments The patient arrives the ER by private conveyance with her significant other and chief complaint of shortness of breath for the past week progressively worsening. She went to urgent care sometime last week and had a negative flu swab was given a dose of steroids and doxycycline. She does not feel that it has gotten any better. She finished the steroids and is still taking the doxycycline. She was given a albuterol inhaler which she has been using about every hour with no significant improvement tonight. She does not see a primary care doctor. She says she does have a history of asthma but is intermittent and she does not follow with anyone for it. She does not have a nebulizer. She has not had any fever but she has had chills. She's having no nausea or vomiting, chest pain or history of heart disease. She relates that approximately a year ago she had influenza B with asthma exacerbation and had intubated. Smokes about a quarter pack per day or less. Patient denies any travel outside the [facility] or exposure to anybody under investigation for coronavirus. (KELLY BARAHONA) Allergies and Home Medications Allergies Coded Allergies: No Known Drug Allergies (Unverified , 07/13/18) Home Medications Albuterol Sulfate 1 Puff Puff, 2 PUFF IH Q4H PRN for SHORTNESS OF BREATH, (Reported) Patient Home Medication List Home Medication List Reviewed: Yes (KELLY BARAHONA) Review of Systems Review of Systems Constitutional: No chills, No fever; malaise, weakness EENTM: No ear discharge, No ear pain Respiratory: cough; No phlegm; short of breath, wheezing Cardiovascular: No chest pain, No palpitations Gastrointestinal: No abdominal pain, No nausea, No vomiting Genitourinary: No discharge, No dysuria Musculoskeletal: No back pain, No joint pain Skin: No pruritus, No rash Psychiatric/Neurological: Denies Anxiety, Denies Depressed Hematologic/Lymphatic: Denies Anemia, Denies Blood Clots (KELLY BARAHONA) All Other Systems Reviewed Negative Unless Noted: Yes (KELLY BARAHONA) Past Psptrmv-Weqnai-Oefblt Hx Patient Social History Alcohol Use: Denies Use Recreational Drug Use: No Smoking Status: Current Everyday Smoker (0.25 ppd) Type Used: Cigarettes Recent Foreign Travel: No Contact w/Someone Who Travel: No Recent Hopitalizations: No (KELLY BARAHONA) Seasonal Allergies Seasonal Allergies: No (KELLY BARAHONA) Past Medical History Surgeries: No Respiratory: No Cardiac: No Neurological: No Genitourinary: No Gastrointestinal: No Musculoskeletal: No Endocrine: No HEENT: No Cancer: No Psychosocial: No Integumentary: No Blood Disorders: No (KELLY BARAHONA) Physical Exam Vital Signs - First Documented 07/22/19 07/22/19 07/22/19 03:10 03:21 03:41 Temp 36.6 Pulse 106 Resp 24 B/P (MAP) 146/87 (106) Pulse Ox 92 O2 Delivery Room Air O2 Flow Rate 2.00 FiO2 35 (AKI CHISHOLM DO) Capillary Refill : (KELLY BARAHONA) Height: 5'7.00" Weight: 210lbs. 3.0oz. 95.677671jy; 33.7 BMI Method:Stated General Appearance: WD/WN, moderate distress Eyes: Bilateral Eye Normal Inspection, Bilateral Eye PERRL, Bilateral Eye EOMI HEENT: PERRL/EOMI, normal ENT inspection, TMs normal; No pharynx normal (oropharynx is mildly dry) Neck: non-tender, full range of motion Respiratory: respiratory distress (moderate), accessory muscle use (moderate), rales (bilateral bases), wheezing, expiration (prolonged) Cardiovascular: normal peripheral pulses, regular rate, rhythm, no edema, no murmur Gastrointestinal: normal bowel sounds, non tender, soft Extremities: non-tender, normal inspection, normal capillary refill Neurologic/Psychiatric: no motor/sensory deficits, alert, normal mood/affect, oriented x 3 Skin: normal color, warm/dry (KELLY BARAHONA) Focused Exam Lactate Level 07/22/19 03:20: Lactic Acid Level 1.66 (AKI CHISHOLM DO) Lactic Acid Level Laboratory Tests Test 07/22/19 03:20 Lactic Acid Level 1.66 MMOL/L (0.50-2.00) (AKI CHISHOLM DO) Procedures/Interventions Date of ETT Placement: Jul 13, 2018 Time of ETT Placement: 1937 (KELLY BARAHONA) Progress/Results/Core Measures Suspected Sepsis SIRS Temperature: Pulse: Respiratory Rate: Laboratory Tests 07/22/19 03:20: White Blood Count 14.3H Blood Pressure / Mean: 07/22/19 03:20: Lactic Acid Level 1.66 Laboratory Tests 07/22/19 03:20: Creatinine 0.72, INR Comment 1.0, Platelet Count 477H, Total Bilirubin 0.2 (KELLY BARAHONA) Results/Orders Lab Results Laboratory Tests Test 07/22/19 03:15 07/22/19 03:20 Range/Units Blood Gas Puncture Site LEFT RADIAL Blood Gas Patient Temperature 36.6 Arterial Blood pH 7.45 H 7.37-7.43 Arterial Blood Partial Pressure CO2 31 L 35-45 MMHG Arterial Blood Partial Pressure O2 58 L 79-93 MMHG Arterial Blood HCO3 21 L 23-27 MMOL/L Arterial Blood Total CO2 22.4 21.0-31.0 MMOL/L Arterial Blood Oxygen Saturation 91 L 94-100 % Arterial Blood Base Excess -2.1 -2.5-2.5 MMOL/L Ulices Test YES-POS Blood Gas Ventilator Setting NO Blood Gas Inspired Oxygen 2L White Blood Count 14.3 H 4.3-11.0 10^3/uL Red Blood Count 5.17 4.35-5.85 10^6/uL Hemoglobin 14.2 11.5-16.0 G/DL Hematocrit 44 35-52 % Mean Corpuscular Volume 86 80-99 FL Mean Corpuscular Hemoglobin 28 25-34 PG Mean Corpuscular Hemoglobin Concent 32 32-36 G/DL Red Cell Distribution Width 14.9 H 10.0-14.5 % Platelet Count 477 H 130-400 10^3/uL Mean Platelet Volume 9.1 7.4-10.4 FL Neutrophils (%) (Auto) 58 42-75 % Lymphocytes (%) (Auto) 26 12-44 % Monocytes (%) (Auto) 5 0-12 % Eosinophils (%) (Auto) 11 H 0-10 % Basophils (%) (Auto) 0 0-10 % Neutrophils # (Auto) 8.2 H 1.8-7.8 X 10^3 Lymphocytes # (Auto) 3.7 1.0-4.0 X 10^3 Monocytes # (Auto) 0.7 0.0-1.0 X 10^3 Eosinophils # (Auto) 1.6 H 0.0-0.3 10^3/uL Basophils # (Auto) 0.0 0.0-0.1 10^3/uL Prothrombin Time 13.8 12.2-14.7 SEC INR Comment 1.0 0.8-1.4 Activated Partial Thromboplast Time 37 H 24-35 SEC Sodium Level 137 135-145 MMOL/L Potassium Level 4.0 3.6-5.0 MMOL/L Chloride Level 106 98-107 MMOL/L Carbon Dioxide Level 18 L 21-32 MMOL/L Anion Gap 13 5-14 MMOL/L Blood Urea Nitrogen 10 7-18 MG/DL Creatinine 0.72 0.60-1.30 MG/DL Estimat Glomerular Filtration Rate > 60 BUN/Creatinine Ratio 14 Glucose Level 98 70-105 MG/DL Lactic Acid Level 1.66 0.50-2.00 MMOL/L Calcium Level 9.1 8.5-10.1 MG/DL Corrected Calcium 8.9 8.5-10.1 MG/DL Magnesium Level 2.1 1.6-2.4 MG/DL Total Bilirubin 0.2 0.1-1.0 MG/DL Aspartate Amino Transf (AST/SGOT) 20 5-34 U/L Alanine Aminotransferase (ALT/SGPT) 23 0-55 U/L Alkaline Phosphatase 66 40-136 U/L Total Protein 7.2 6.4-8.2 GM/DL Albumin 4.2 3.2-4.5 GM/DL Serum Test, Qualitative NEGATIVE NEGATIVE (AKI CHISHOLM DO) Micro Results Microbiology 07/22/19 Influenza Types A,B Antigen (KETAN) - Final, Complete (AKI CHISHOLM DO) Medications Given in ED Current Medications Medications Dose Ordered Sig/James Route Start Time Stop Time Status Last Admin Dose Admin Albuterol/ Ipratropium 3 ml STK-MED ONCE .ROUTE 07/22/19 03:13 07/22/19 03:19 DC 07/22/19 03:20 3 ML Azithromycin 500 mg/Sodium Chloride 250 ml @ 250 mls/hr ONCE ONCE IV 07/22/19 03:30 07/22/19 04:29 DC 07/22/19 03:50 250 MLS/HR Ceftriaxone Sodium 1000 mg/ Sterile Water 10 ml @ 200 mls/hr ONCE ONCE IV 07/22/19 03:30 07/22/19 03:32 DC 07/22/19 03:50 200 MLS/HR Ondansetron HCl 4 mg ONCE ONCE IVP 07/22/19 03:45 07/22/19 03:46 DC 07/22/19 03:50 4 MG (AKI CHISHOLM DO) Vital Signs/I&O 07/22/19 07/22/19 07/22/19 07/22/19 03:10 03:10 03:21 03:41 Temp 36.6 Pulse 106 Resp 24 B/P (MAP) 146/87 (106) Pulse Ox 92 99 O2 Delivery Room Air Nasal Cannula Nasal Cannula Vapotherm O2 Flow Rate 2.00 3.00 20.00 FiO2 35 07/22/19 04:18 Temp 36.6 Pulse 84 Resp 21 B/P (MAP) 129/89 Pulse Ox 100 O2 Delivery Vapotherm O2 Flow Rate 20.00 (AKI CHISHOLM DO) Vital Signs/I&O Capillary Refill : (KELLY BARAHONA) Progress Note : Time: 04:38 Progress Note The patient is on 2 L after arrival because her sats were about 87-88%; respiratory rate in the 30s and heart rate around 110-lead to a septic workup. Jim took away her wheezing but still has some mild crackles bilateral bases. She was tripoding and using pursed lip breathing with accessory muscle increased work of breathing. Plan to go ahead and cover her with Rocephin and azithromycin until repeat x-ray and blood cultures come back. Solu-Medrol 125 mg IV 1. Even after the breathing treatment she was working hard to breathe and her ABG demonstrated hypoxia with PO2 in the 50s on 2 L per nasal cannula. We initiated Vapotherm at 20 L/m with FiO2 of 35% and it is kept her oxygen sats around 98 to 100% and her heart rate decreased from 110 down to mid 80s. She says she is feeling much better. At this time the patient is no longer having increased worker breathing, tripoding, purse lip breathing and is much more relaxed able to lay backwards in the bed. She says she feels much better. We are on ICU and stepdown diversion currently however the time we get an ambulance [place] the nursing curtain supervisor has advised we should have better staffing and beds available. Plan to room her in the ER and reassess our bed status around 7 or 8:00 in the morning. (KELLY BARAHONA) Progress Note : Progress Note 0600--ASSUMED CARE FROM DR. ABRAHONA, WAITING FOR BED AVAILABILITY. PT IS RESTING COMFORTABLY. O2 SATS IN UPPER 90'S ON VAPOTHERM 0645--INFORMED BY PET CARE ATTENDANT THAT BED IS AVAILABLE. (AKI CHISHOLM DO) Diagnostic Imaging Diagonstic Imaging: Xray Plain Films/CT/US/NM/MRI: chest Comments No acute cardiopulmonary process noted on one view chest x-ray. Reviewed: Reviewed by Me (KELLY BARAHONA) Departure Communication (Admissions) 0647--CALLED DR. SANTOS, HOSPITALIST, MESSAGE LEFT 0754--SPOKE WITH DR. SANTOS, ACCEPTS PT FOR ADMIT (AKI CHISHOLM DO) Impression Primary Impression: Asthma exacerbation Additional Impressions: Acute respiratory failure with hypoxia CLINICAL PNEUMONIA Failure of outpatient treatment Sepsis Disposition: ADMITTED INPATIENT Condition: Improved Admissions Decision to Admit Reason: Admit from ER (General) Decision to Admit/Date: Jul 22, 2019 Time/Decision to Admit Time: 06:55 (AKI CHISHOLM DO) Departure-Patient Inst. Referrals: NO,LOCAL PHYSICIAN (PCP/Family) Primary Care Physician KELLY BARAHONA Jul 22, 2019 03:23 AKI CHISHOLM DO Jul 22, 2019 07:01
[2019-07-22 03:25] LABS: ABG BASE EXCESS -2.1 MMOL/L (-2.5-2.5); ABG OXYGEN SATURATION 91 % (94-100); ABG PCO2 31 MMHG (35-45); ABG PH 7.45 (7.37-7.43); ABG PO2 58 MMHG (79-93); ABG TCO2 22.4 MMOL/L (21.0-31.0); ALLENS TEST YES-POS
[2019-07-22 03:26] LABS: INSPIRED O2 2L; PATIENT TEMP 36.6; VENTILATOR NO
[2019-07-22] MEDS ORDERED: cefTRIAXone FOR IV USE 1,000 MG in WATER (STERILE) FOR INJECTION 10 ML IV ONE (03:30)
[2019-07-22] MEDS ORDERED: AZITHROMYCIN INJECTION 500 MG in NS (IVPB) 250 ML IV ONE (03:30)
[2019-07-22] MEDS ORDERED: RT-ALBUTEROL/IPRATROPIUM 3 ML (DUONEB) VIAL INH ONE (03:30)
--- NOTE | 2019-07-22 03:31 | NUR ---
VAPOTHERM PLACED TO BY RT AT THIS TIME AT 20L FIO2 35%. O2 SAT RANGE 98-100% AFTER PLACEMENT.
[2019-07-22 03:41] LABS: BASOPHILS % (AUTO) 0 % (0-10); EOSINOPHILS # (AUTO) 1.6 10^3/uL (0.0-0.3); EOSINOPHILS % (AUTO) 11 % (0-10); HEMATOCRIT 44 % (35-52); HEMOGLOBIN 14.2 G/DL (11.5-16.0); LYMPHOCYTES # (AUTO) 3.7 X 10^3 (1.0-4.0); LYMPHOCYTES % (AUTO) 26 % (12-44); MEAN CORPUSCULAR HEMOGLOBIN 28 PG (25-34); MEAN CORPUSCULAR HGB CONC 32 G/DL (32-36); MEAN CORPUSCULAR VOLUME 86 FL (80-99); MEAN PLATELET VOLUME 9.1 FL (7.4-10.4); MONOCYTES # (AUTO) 0.7 X 10^3 (0.0-1.0); MONOCYTES % (AUTO) 5 % (0-12); NEUTROPHILS # (AUTO) 8.2 X 10^3 (1.8-7.8); NEUTROPHILS % (AUTO) 58 % (42-75); PLATELET COUNT 477 10^3/uL (130-400); RED CELL DISTRIBUTION WIDTH 14.9 % (10.0-14.5); WHITE BLOOD COUNT 14.3 10^3/uL (4.3-11.0)
[2019-07-22] MEDS ORDERED: ONDANSETRON 4 MG/2 ML (SDV) Z0FRAN IVP ONE (03:45)
[2019-07-22 03:55] LABS: PROTHROMBIN TIME PATIENT 13.8 SEC (12.2-14.7)
[2019-07-22 04:00] LABS: ALANINE AMINOTRANSFERASE 23 U/L (0-55); ALBUMIN 4.2 GM/DL (3.2-4.5); ALKALINE PHOSPHATASE 66 U/L (40-136); BILIRUBIN,TOTAL 0.2 MG/DL (0.1-1.0); BUN/CREATININE RATIO 14; CALCIUM 9.1 MG/DL (8.5-10.1); CARBON DIOXIDE 18 MMOL/L (21-32); CHLORIDE 106 MMOL/L (98-107); CREATININE SERUM 0.72 MG/DL (0.60-1.30); GFR ESTIMATED > 60; GLUCOSE 98 MG/DL (70-105); MAGNESIUM 2.1 MG/DL (1.6-2.4); SODIUM 137 MMOL/L (135-145); TOTAL PROTEIN 7.2 GM/DL (6.4-8.2)
--- NOTE | 2019-07-22 05:00 | NUR ---
OFFERED TO EXCHANGE ER CART FOR INPATIENT TYPE HOSPITAL BED DURING WAIT TIME AND PT STATES SHE IS FINE FOR THE TIME BEING. PT ABLE TO SELF TURN. DAUGHTERS AT BEDSIDE. LIGHTS TURNED DOWN AND PT STATES SHE IS GOING TO ATTEMPT TO REST/SLEEP.
--- NOTE | 2019-07-22 05:21 | NUR ---
02 SATS 98-100% ON VAPOTHERM 20L FIO2 35%. FIO2 DECREASED TO 30% AT THIS TIME.
--- NOTE | 2019-07-22 06:05 | Diagnostic Imaging Report ---
INDICATION: Shortness of breath COMPARISON: 07/17/2018 FINDINGS: Single view of the chest demonstrates clear lungs bilaterally. The heart is normal. There is no pneumothorax. Osseous structures normal. IMPRESSION: Negative chest Dictated by: Dictated on workstation # [id number]
[2019-07-22 06:56] LABS: BILIRUBIN,URINE NEGATIVE (NEGATIVE); CLARITY,URINE CLEAR; COLOR,URINE YELLOW; GLUCOSE, URINE (UA) NEGATIVE (NEGATIVE); KETONES,URINE NEGATIVE (NEGATIVE); LEUKOCYTE ESTERASE ,URINE NEGATIVE (NEGATIVE); NITRITE,URINE NEGATIVE (NEGATIVE); PROTEIN,URINE NEGATIVE (NEGATIVE)
[2019-07-22 07:17] LABS: BACTERIA,URINE NEGATIVE /HPF; SQUAMOUS EPITHELIAL CELL,UR 0-2 /HPF
--- NOTE | 2019-07-22 08:19 | NUR ---
Patient just got up to Room 510 from ED; she was transferred to room by RN and RT Anabel patient was instructed to spit out the phlegm when she coughs it up and to let RT know what color it is.
[2019-07-22] MEDS ORDERED: IBUPROFEN 600 MG (MOTRIN) TAB PO PRN ×2 (09:30→17:00)
[2019-07-22] MEDS ORDERED: LACTATED RINGERS 1,000 ML IV SCH (09:30)
[2019-07-22] MEDS ORDERED: ACETAMINOPHEN 500 MG TAB (TYLENOL) PO PRN ×2 (09:30→15:15)
[2019-07-22] MEDS ORDERED: ONDANSETRON 4 MG/2 ML (SDV) Z0FRAN IV PRN (09:30)
--- NOTE | 2019-07-22 11:18 | NUR ---
Pt is [facility] and declines sacraments.
[2019-07-22] MEDS: methylPREDNISolone 40 MG/ML (Solu-MEDROL) VIAL IV SCH ×2 (11:35→19:00)
[2019-07-22] MEDS ORDERED: RT-ALBUINH INH (12:02)
[2019-07-22] MEDS ORDERED: DOXY100C42 PO (12:02)
[2019-07-22] MEDS ORDERED: FEXO180T84 PO (12:02)
--- NOTE | 2019-07-22 12:03 | NUR ---
SPOKE WITH THE PT AND CALLED [facility] TO COMPLETE THE MED REC. 07-14-2019 DOXYCYCLINE 100MG #14/7 DS 07-19-2019 ALBUTEROL INH #1 PT ALSO PICKED UP PREDNISONE 20MG #10/ DS ON 07-14-2019 BUT HAD FINISHED THE THERAPY BEFORE SHE GOT HERE. OTC MEDS: JAY EDWARDS
[2019-07-22] MEDS ORDERED: RT-ALBUTEROL SULF 2.5 MG/3 ML PRE-MIX VIAL INH PRN ×2 (15:15→18:00)
[2019-07-22] MEDS ORDERED: ACETAMINOPHEN 500 MG TAB (TYLENOL) ONE (15:21)
--- NOTE | 2019-07-22 15:22 | History & Physical-Hospitalist ---
History of Present Illness HPI/Chief Complaint Pt is a 34-year-old female with past medical history of moderate persistent asthma who presented to the emergency department due to shortness of breath. She states that her symptoms started last week and she was seen at a clinic and diagnosed with bronchitis. She states she was started on antibiotics and prednisone but this did not improve her symptoms much. She woke up at 3 o'clock this morning very short of breath. She attempted to use her rescue inhaler without improvement. This prompted her to seek evaluation in the emergency room. Of note last year around this time she was diagnosed with the flu and was on a ventilator. On arrival to the emergency room she was tripoding and was placed on Vapotherm. She is responded well to steroids and nebulized breathing treatments. She is still on Vapotherm but is breathing quite comfortably. Source: patient Exam Limitations: no limitations Date Seen 07/22/19 Time Seen by a Provider: 15:16 Attending Physician Mark Narayan MD PCP No,Local Physician Referring Physician Date of Admission Jul 22, 2019 at 07:01 Home Medications & Allergies Home Medications Reviewed patient Home Medication Reconciliation performed by pharmacy medication reconciliations oil bay technician and/or nursing. Patients Allergies have been reviewed. Allergies Allergies Coded Allergies No Known Drug Allergies (Unverified07/13/18) Past Uxtjind-Nkoifs-Fneqck Hx Past Med/Social Hx: Reviewed Nursing Past Med/Soc Hx Patient Social History Alcohol Use: Denies Use Recreational Drug Use: No Smoking Status: Former Smoker Type Used: Cigarettes Recent Foreign Travel: No Contact w/other who traveled: No Recent Hopitalizations: No Recent Infectious Disease Expo: No Immunizations Up To Date Date of Influenza Vaccine: Feb 10, 2019 Seasonal Allergies Seasonal Allergies: No Past Medical History Surgeries: Tubal Ligation Respiratory: Asthma Tubal Ligation History of Blood Disorders: No Family History Reviewed Nursing Family Hx No Pertinent Family Hx Review of Systems Constitutional: No chills, No fever EENTM: no symptoms reported Respiratory: see HPI, cough, short of breath, wheezing Cardiovascular: No chest pain, No palpitations Gastrointestinal: no symptoms reported Genitourinary: no symptoms reported Musculoskeletal: no symptoms reported Skin: no symptoms reported Psychiatric/Neurological: Headache All Other Systems Reviewed Negative Unless Noted: Yes (Negative excepted noted.) Physical Exam Physical Exam Vital Signs Vital Signs - First Documented 07/22/19 07/22/1920 03:10 03:21 03:41 Temp 36.6 Pulse 106 Resp 24 B/P (MAP) 146/87 (106) Pulse Ox 92 O2 Delivery Room Air O2 Flow Rate 2.00 FiO2 35 Capillary Refill : Less Than 3 Seconds Height, Weight, BMI Height: 5'7.00" Weight: 210lbs. 3.0oz. 95.125246ck; 22.49 BMI Method:Stated General Appearance: No Apparent Distress, WD/WN HEENT: PERRL/EOMI, Moist Mucous Membranes; No Scleral Icterus (L), No Scleral Icterus (R) Neck: Normal Inspection, Supple Respiratory: No Accessory Muscle Use, Wheezing (scant, good air movement), Other (on vapotherm) Cardiovascular: Regular Rate, Rhythm, No Murmur Gastrointestinal: Normal Bowel Sounds, Non Tender, Soft Extremity: Normal Capillary Refill, No Calf Tenderness, No Pedal Edema Neurologic/Psychiatric: Alert, Oriented x3, Normal Mood/Affect Skin: Normal Color, Warm/Dry Results Results/Procedures Labs Laboratory Tests 07/22/19 03:20 Patient resulted labs reviewed. Imaging: Reviewed Imaging Report Imaging Date of Exam:07/22/19 CHEST 1 VIEW, AP/PA ONLY INDICATION: Shortness of breath COMPARISON: 07/17/2018 FINDINGS: Single view of the chest demonstrates clear lungs bilaterally. The heart is normal. There is no pneumothorax. Osseous structures normal. IMPRESSION: Negative chest Assessment/Plan Admission Diagnosis Acute Hypoxic Respiratory Failure Status Asthmaticus Much improved from presentation Continue IV steroids Supplement oxygen to keep sats >90 MAT protocol Add Advair and Singulair Will check procalcitonin and attempt tp DC abx if negative Pulm consulted, appreciate recs Admission Status: Inpatient Order (span 2 midnights) Reason for Inpatient Admission: failed outpatient management Clinical Quality Measures DVT/VTE Risk/Contraindication: Risk Factor Score Per Nursin RFS Level Per Nursing on Admit: 1=Low/No VTE PPX MARK NARAYAN MD Jul 22, 2019 15:22
--- NOTE | 2019-07-22 15:23 | Pulmonary Consultation ---
History of Present Illness History of Present Illness Date Seen by Provider: Jul 22, 2019 Time Seen by Provider: 15:19 Date of Admission History of Present Illness 44yo with hx of asthma exacerbations requiring ventilatory support and she is a current smoker presented to ED secondary to to worsening SOB and wheezing. She was seen in urgent care last week and had neg influenza swab. SHe was given steroids and doxy at that time. despite out pt treatment symptoms have worsened. Allergies and Home Medications Allergies Coded Allergies: No Known Drug Allergies (Unverified , 07/13/18) Home Medications Albuterol Sulfate 6.7 Gm Hfa.aer.ad, 2 PUFF INH Q6H, (Reported) Doxycycline Monohydrate 100 Mg Capsule, 100 MG PO BID, (Reported) FILLED 07-14-2019 #14/7 DAYS SUPPLY Fexofenadine HCl 180 Mg Tablet, 180 MG PO DAILY PRN for ALLERGY SYMPTOMS, (Reported) Past Nxuxdtz-Mfiwkr-Hdcxfs Hx Patient Social History Alcohol Use: Denies Use Recreational Drug Use: No Smoking Status: Current Everyday Smoker (0.25 ppd) Type Used: Cigarettes Recent Foreign Travel: No Contact w/Someone Who Travel: No Recent Infectious Disease Expo: No Recent Hopitalizations: No Physical Abuse: No Sexual Abuse: No Mistreated: No Fear: No Immunizations Up To Date Date of Influenza Vaccine: Feb 10, 2019 Seasonal Allergies Seasonal Allergies: No Past Medical History Surgeries: Yes Tubal Ligation Respiratory: Yes Asthma Cardiac: No Neurological: No CLIENT CARE CONSULTANT History: Tubal Ligation Genitourinary: No Gastrointestinal: No Musculoskeletal: No Endocrine: No HEENT: No Cancer: No Psychosocial: No Integumentary: No Blood Disorders: No Review of Systems Time Seen by Provider: 15:23 Constitutional: Chills, Weakness, Malaise; No: Fever Eyes: No: Pain, Vision change, Conjunctivae inflammation, Eyelid inflammation, Other, Redness ENT: Nose discharge, Nose congestion Respiratory: Cough, Dry, Shortness of breath, SOB with excertion, Wheezing; No: Hemoptysis, Pleuritic Pain, Sputum Cardiovascular: Paroxysmal Noc. Dyspnea Gastrointestinal: No: Nausea, Vomiting, Diarrhea, Constipation Genitourinary: No Dysuria, No Frequency, No Incontinence, No Hematuria, No Retention, No Other Sepsis Event Evaluation Height, Weight, BMI Height: 5'7.00" Weight: 210lbs. 3.0oz. 95.716739ac; 22.49 BMI Method:Stated Exam Exam Vital Signs Date Time Temp Pulse Resp B/P (MAP) Pulse Ox O2 Delivery O2 Flow Rate FiO2 07/22/19 15:12 94 Vapotherm 20.00 30 07/22/19 12:00 Vapotherm 30 07/22/19 12:00 37.0 86 16 140/80 (100) 97 Vapotherm 20.00 30.00 07/22/19 11:00 92 16 133/80 (97) 95 Vapotherm 30.00 07/22/19 10:00 90 18 138/81 (100) 94 Vapotherm 30.00 07/22/19 09:00 Vapotherm 30 07/22/19 09:00 84 18 144/83 (103) 94 Vapotherm 30.00 07/22/19 08:35 87 07/22/19 08:33 Vapotherm 30 07/22/19 08:30 86 18 124/81 (95) 95 Vapotherm 30.00 07/22/19 08:15 37.0 84 20 120/81 (94) 95 Vapotherm 30.00 07/22/19 08:14 96 Vapotherm 20.00 30 07/22/19 07:51 93 18 123/73 97 Vapotherm 07/22/19 04:18 36.6 84 21 129/89 100 Vapotherm 20.00 07/22/19 03:41 99 Vapotherm 20.00 35 07/22/19 03:21 92 Nasal Cannula 3.00 07/22/19 03:10 Nasal Cannula 2.00 07/22/19 03:10 36.6 106 24 146/87 (106) Room Air I & O 07/22/19 07:00 Intake Total 1260 ml Balance 1260 ml Height & Weight Height: 5'7.00" Weight: 210lbs. 3.0oz. 95.340923vq; 22.49 BMI Method:Stated General Appearance: Anxious, Moderate Distress HEENT: PERRL/EOMI, TMs Normal, Normal ENT Inspection, Pharynx Normal Neck: Full Range of Motion, Normal Inspection, Non Tender, Supple Respiratory: Chest Non Tender, No Accessory Muscle Use, No Respiratory Distress, Crackles, Decreased Breath Sounds, Wheezing Cardiovascular: Regular Rate, Rhythm, No Edema Capillary Refill: Less Than 3 Seconds Gastrointestinal: normal bowel sounds, non tender, soft Extremity: Normal Capillary Refill, Normal Inspection, No Pedal Edema Neurologic/Psychiatric: Alert, Oriented x3 Skin: Normal Color, Warm/Dry Lymphatic: No Adenopathy Results Lab Laboratory Tests 07/22/19 03:20 Assessment/Plan Assessment/Plan Acute respiratory failure -Continue duonebs -Start LR at 150 -Continue Abx AsthmaAE Metabolic acidosis -LA is normal Sepsis with probable PNA Hx of lung nodules -Check CT of chest AYAZ LANDIN DO Jul 22, 2019 15:23
[2019-07-22] MEDS: LACTATED RINGERS 1,000 ML IV SCH ×2 (16:44→23:35)
[2019-07-22] MEDS ORDERED: IBUPROFEN 600 MG (MOTRIN) TAB PO SCH (18:00)
[2019-07-22] MEDS ORDERED: RT-ALBUTEROL/IPRATROPIUM 3 ML (DUONEB) VIAL INH SCH (18:00)
[2019-07-22] MEDS: RT-ALBUTEROL/IPRATROPIUM 3 ML (DUONEB) VIAL INH SCH ×2 (19:38→23:11)
[2019-07-22] MEDS: RT-ADVAIR HFA 115/21 MCG PER PUFF IH SCH (19:38)
[2019-07-22] MEDS: MONTELUKAST 10 MG (SINGULAIR) TAB PO SCH (20:44)
[2019-07-22] MEDS ORDERED: RT-ALBUTEROL SULF 2.5 MG/3 ML PRE-MIX VIAL INH SCH (21:00)
[2019-07-23] VITALS (7 sets, daily range): BP systolic 112–137; BP diastolic 64–86
--- NOTE | 2019-07-23 01:40 | NUR ---
REPORT RECEIVED FROM DANN CEJA. THIS RN AGREES WITH REPORT AND WILL ASSUME CARE OF PATIENT AT THIS TIME.
[2019-07-23] MEDS: RT-ALBUTEROL/IPRATROPIUM 3 ML (DUONEB) VIAL INH SCH ×6 (02:45→22:54)
[2019-07-23] MEDS: methylPREDNISolone 40 MG/ML (Solu-MEDROL) VIAL IV SCH ×3 (03:38→20:35)
[2019-07-23 03:42] LABS: BASOPHILS % (AUTO) 0 % (0-10); EOSINOPHILS % (AUTO) 0 % (0-10); HEMATOCRIT 37 % (35-52); HEMOGLOBIN 11.7 G/DL (11.5-16.0); LYMPHOCYTES % (AUTO) 5 % (12-44); MEAN CORPUSCULAR HEMOGLOBIN 27 PG (25-34); MEAN CORPUSCULAR HGB CONC 32 G/DL (32-36); MEAN CORPUSCULAR VOLUME 87 FL (80-99); MEAN PLATELET VOLUME 9.2 FL (7.4-10.4); MONOCYTES # (AUTO) 0.6 X 10^3 (0.0-1.0); MONOCYTES % (AUTO) 3 % (0-12); NEUTROPHILS # (AUTO) 20.2 X 10^3 (1.8-7.8); NEUTROPHILS % (AUTO) 92 % (42-75); PLATELET COUNT 444 10^3/uL (130-400); RED CELL DISTRIBUTION WIDTH 15.2 % (10.0-14.5); WHITE BLOOD COUNT 21.8 10^3/uL (4.3-11.0)
[2019-07-23] MEDS ORDERED: cefTRIAXone 1,000 MG/SWFI 10 ML IV PUSH IV SCH ×2 (04:00)
[2019-07-23] MEDS ORDERED: AZITHROMYCIN 500 MG/NS 250 ML IVPB IV SCH ×2 (04:00)
[2019-07-23 04:06] LABS: ALANINE AMINOTRANSFERASE 16 U/L (0-55); ALBUMIN 3.6 GM/DL (3.2-4.5); ALKALINE PHOSPHATASE 51 U/L (40-136); BILIRUBIN,TOTAL 0.1 MG/DL (0.1-1.0); BUN/CREATININE RATIO 14; CALCIUM 8.6 MG/DL (8.5-10.1); CARBON DIOXIDE 19 MMOL/L (21-32); CHLORIDE 112 MMOL/L (98-107); CREATININE SERUM 0.77 MG/DL (0.60-1.30); GFR ESTIMATED > 60; GLUCOSE 173 MG/DL (70-105); POTASSIUM 3.9 MMOL/L (3.6-5.0); SODIUM 140 MMOL/L (135-145); TOTAL PROTEIN 6.2 GM/DL (6.4-8.2)
[2019-07-23 05:20] LABS: BAND NEUTROPHILS 3 %; LYMPHOCYTES % (MANUAL) 6 %; MONOCYTES % (MANUAL) 1 %; NEUTROPHILS % (MANUAL) 90 %; RBC MORPH NORMAL
[2019-07-23] MEDS: LACTATED RINGERS 1,000 ML IV SCH (05:23)
--- NOTE | 2019-07-23 09:39 | Progress Note - Hospitalist ---
Subjective HPI/CC On Admission Date Seen by Provider: Jul 23, 2019 Time Seen by Provider: 09:32 Pt is a 34-year-old female with past medical history of moderate persistent asthma who presented to the emergency department due to shortness of breath. She states that her symptoms started last week and she was seen at a clinic and diagnosed with bronchitis. She states she was started on antibiotics and prednisone but this did not improve her symptoms much. She woke up at 3 o'clock this morning very short of breath. She attempted to use her rescue inhaler without improvement. This prompted her to seek evaluation in the emergency room. Of note last year around this time she was diagnosed with the flu and was on a ventilator. On arrival to the emergency room she was tripoding and was placed on Vapotherm. She is responded well to steroids and nebulized breathing treatments. She is still on Vapotherm but is breathing quite comfortably. Subjective/Events-last exam Pt reports feeling much better today. Breathing improved. Focused Exam Lactate Level 07/22/19 03:20: Lactic Acid Level 1.66 07/22/19 08:51: Lactic Acid Level 1.56 Objective Exam Vital Signs Vital Signs Date Time Temp Pulse Resp B/P (MAP) Pulse Ox O2 Delivery O2 Flow Rate FiO2 07/23/19 07:58 35.7 80 18 125/86 (99) 94 Vapotherm 20.00 30.00 07/23/19 03:37 20 Capillary Refill : Less Than 3 Seconds General Appearance: No Apparent Distress, WD/WN Respiratory: Lungs Clear, No Accessory Muscle Use, Other (on vapotherm) Cardiovascular: Regular Rate, Rhythm, No Murmur Gastrointestinal: Normal Bowel Sounds, Non Tender, Soft Neurologic/Psychiatric: Alert, Oriented x3 Results/Procedures Lab Laboratory Tests 07/23/19 02:54 Patient resulted labs reviewed. Imaging: Reviewed Imaging Report Assessment/Plan Assessment and Plan Assess & Plan/Chief Complaint Acute Hypoxic Respiratory Failure Status Asthmaticus Continues to improve, attempt to wean Vapotherm as able Continue IV steroids Supplement oxygen to keep sats >90 MAT protocol Continue Advair and Singulair Procalcitonin negative- will DC antibiotics Pulm consulted, appreciate recs Diagnosis/Problems Diagnosis/Problems (1) Acute respiratory failure with hypoxia Status: Acute (2) Failure of outpatient treatment Status: Acute (3) Asthma exacerbation Status: Acute Qualifiers: Asthma severity: moderate Asthma persistence: persistent Qualified Codes: J45.41 - Moderate persistent asthma with (acute) exacerbation Clinical Quality Measures DVT/VTE Risk/Contraindication: Risk Factor Score Per Nursin RFS Level Per Nursing on Admit: 1=Low/No VTE PPX MARK SANTOS MD Jul 23, 2019 09:39
[2019-07-23] MEDS: RT-ADVAIR HFA 115/21 MCG PER PUFF IH SCH ×2 (10:08→19:28)
--- NOTE | 2019-07-23 18:08 | NUR ---
PT REQUESTING SOMETHING FOR COUGH, DR SANTOS NOTIFIED AND NEW ORDERS RECEIVED. SEE ORDER HX.
[2019-07-23] MEDS ORDERED: BENZONATATE 100 MG (TESSALON) CAPSULE PO PRN (18:15)
[2019-07-23] MEDS: MONTELUKAST 10 MG (SINGULAIR) TAB PO SCH (20:36)
--- NOTE | 2019-07-23 20:50 | Discharge Inst-Simple/Standard ---
Discharge Inst-Standard Discharge Medications New, Converted or Re-Newed RX: Transmitted to Pharmacy Patient Instructions/Follow Up Plan of Care/Instructions/FU: Please continue to take your medications as written. Please follow up with your primary care doctor and Dr Keenan to follow up this hospital stay. Activity as Tolerated: Yes Discharge Diet: No Restrictions Return to The Hospital For: Shrtoness of breath, chest pain, increased inhaler use, fever, if you feel you are getting worse. MARK SANTOS MD Jul 23, 2019 20:50
--- OUTSIDE RECORDS SUMMARY | 2019-07-24 01:29 | XMS REPORT ---
Author Author Brittnai Gardiner Organization [facility] Address [address] [place] [address] Care Team Providers Care Custodial Operations Manager Name Role Phone DANAY Gardiner Unavailable PROBLEMS Type Condition ICD9-CM Code [id number] Code Onset Dates Condition S tatus SNOMED Code Problem Mild intermittent asthma without complication J45. 20 Active 751424385 Problem Generalized anxiety disorder F41.1 A ctive 87098309 Problem Generalized anxiety disorder 300.02 A ctive 00935327 Problem Major depressive disorder, recurrent episode, moderate 296 .32 Active 39290022 Problem Acute sinusitis, recurrence not specified, unspe cified location J01.90 Active 47923114 Problem Mild intermittent asthma with acute exacerbation J 45.21 Active [id number] ALLERGIES No Information ENCOUNTERS Encounter Location Date Diagnosis [facility] [address] [id number] Jul, [facility] [address] [address] Jul, Mild intermittent asthma wit hout complication J45.20 ; Pneumonitis J18.9 and Generalized anxiety disorder F41.1 [facility] [address] [id number] [address] [place] [address] Jun, Mild intermittent asthma wit h acute exacerbation J45.21 and Wheezing R06.2 [facility] [address] [facility] [id number] [address] [place] [address] Apr, Wheezing R06.2 and Acute ana opharyngitis J00 [facility] [address] [id number] [address] [place] [address] September, Muscle strain of right upper back, initial encounter S29.012A [facility] [address] [id number] [address] [place] [phone] 12 Jun, 2016 Encounter for immunization Z 23 [facility] [address] [id number] [address] [place] [phone] Dec, [facility] [address] [id number] [address] [place] [address] Dec, Acute sinusitis, recurrence not specified, unspecified location J01.90 and Upper respiratory tract infection, unspecified type J06.9 [facility] [address] [id number] [address] [place] [phone] Oct, Upper respiratory tract infe ction, unspecified type J06.9 [facility] [address] [id number] [address] [place] [phone] Jul, [facility] [address] [id number] [address] [place] [phone] Jul, [facility] [address] [id number] [address] [place] [phone] Jun, [facility] [address] [id number] [address] [place] [phone] Jun, [facility] [address] [id number] [address] [place] [phone] May, [facility] [address] [id number] [address] [place] [phone] May, [facility] [address] [id number] [address] [place] [phone] Apr, [facility] [address] [id number] [address] [place] [phone] Apr, [facility] [address] [id number] [address] [place] [phone] Apr, [facility] [address] [id number] [address] [place] [phone] Apr, IMMUNIZATIONS No Known Immunizations SOCIAL HISTORY Never Assessed REASON FOR VISIT PLAN OF CARE VITAL SIGNS MEDICATIONS Unknown Medications RESULTS No Results PROCEDURES No Known procedures INSTRUCTIONS MEDICATIONS ADMINISTERED No Known Medications MEDICAL (GENERAL) HISTORY Type Description Date Medical History Mild intermittent asthma with acute exac erbation Medical History Generalized anxiety disorder Medical History Major depressive disorder, recurrent, mo derate Medical History ADD Medical History Pneumonia Surgical History tubal ligation Surgical History umbilical hernia Hospitalization History childbirth Hospitalization History flu and pneumonia ( was in icu / int ubated) 07/13/2018-07/19/2018
--- OUTSIDE RECORDS SUMMARY | 2019-07-24 01:29 | XMS REPORT ---
Author Author Brittani Lo Organization [facility] Address Unknown Care Team Providers Care Warehouse Representative Name Role Phone REBA Lo Unavailable PROBLEMS Type Condition ICD9-CM Code PLH17-PV Code Onset Dates Condition S tatus SNOMED Code Problem Mild intermittent asthma without complication J45. 20 Active 410367098 Problem Generalized anxiety disorder F41.1 A ctive 47224097 Problem Generalized anxiety disorder 300.02 A ctive 10871703 Problem Major depressive disorder, recurrent episode, moderate 296 .32 Active 96179033 Problem Acute sinusitis, recurrence not specified, unspe cified location J01.90 Active 69587463 Problem Mild intermittent asthma with acute exacerbation J 45.21 Active 143777190 ALLERGIES No Information ENCOUNTERS Encounter Location Date Diagnosis [facility] [address] [address] Dec, Mild intermittent asthma wit hout complication J45.20 [facility] [address] [address] Jul, [facility] [address] [address] Jul, Mild intermittent asthma wit hout complication J45.20 ; Pneumonitis J18.9 and Generalized anxiety disorder F41.1 [facility] [address] [address] Jun, Mild intermittent asthma wit h acute exacerbation J45.21 and Wheezing R06.2 [facility] [address] [address] Apr, Wheezing R06.2 and Acute ana opharyngitis J00 [facility] [address] [address] September, Muscle strain of right upper back, initial encounter S29.012A [facility] [address] [id number] [address] [place] [phone] Jun, Encounter for immunization Z 23 [facility] [address] [id number] [address] [place] [phone] Dec, [facility] [address] [id number] [address] [place] [address] Dec, Acute sinusitis, recurrence not specified, unspecified location J01.90 and Upper respiratory tract infection, unspecified type J06.9 [facility] [address] [id number] [address] [place] [address] Oct, Upper respiratory tract infe ction, unspecified type J06.9 [facility] [address] [id number] [address] [place] [address] Jul, [facility] [address] [id number] [address] [place] [address] Jul, [facility] [address] [id number] [address] [place] [phone] Jun, [facility] [address] [id number] [address] [place] [phone] Jun, [facility] [address] [id number] [address] [place] [phone] May, [facility] [address] [id number] [address] [place] [phone] May, [facility] [address] [id number] [address] [place] [phone] Apr, [facility] [address] [id number] [address] [place] [phone] Apr, [facility] [address] [id number] [address] [place] [phone] Apr, [facility] [address] [facility] [id number] [address] [place] [address] 15 Apr, 2014 IMMUNIZATIONS No Known Immunizations SOCIAL HISTORY Never [...]
--- OUTSIDE RECORDS SUMMARY | 2019-07-24 01:29 | XMS REPORT ---
Author Author Brittani MANZANO Organization [facility] Address [address] [place] [address] Care Team Providers Care Carpet Sewer Name Role Phone MARY MANZANO Unavailable PROBLEMS Type Condition ICD9-CM Code [id number] Code Onset Dates Condition S tatus SNOMED Code Problem Mild intermittent asthma without complication J45. 20 Active 614744160 Problem Generalized anxiety disorder F41.1 A ctive 39968766 Problem Generalized anxiety disorder 300.02 A ctive 17459781 Problem Major depressive disorder, recurrent episode, moderate 296 .32 Active 01326377 Problem Acute sinusitis, recurrence not specified, unspe cified location J01.90 Active 08565833 Problem Mild intermittent asthma with acute exacerbation J 45.21 Active [id number] ALLERGIES No Information ENCOUNTERS Encounter Location Date Diagnosis [facility] [id number] [place] [address] Jul, [facility] [address] [id number] [address] [place] [address] Jul, Mild intermittent asthma wit hout complication J45.20 ; Pneumonitis J18.9 and Generalized anxiety disorder F41.1 [facility] [address] [facility] [id number] [address] [place] [phone] Jun, Mild intermittent asthma wit h acute exacerbation J45.21 and Wheezing R06.2 [facility] [address] [facility] [id number] [address] [place] [id number] Apr, Wheezing R06.2 and Acute ana opharyngitis J00 [facility] [address] [facility] [id number] [address] [place] [address] September, Muscle strain of right upper back, initial encounter S29.012A [facility] [address] [facility] [id number] [address] [place] [address] 12 Jun, 2016 Encounter for immunization Z 23 [facility] [address] [id number] [address] [place] [phone] Dec, [facility] [address] [id number] [address] [place] [address] Dec, Acute sinusitis, recurrence not specified, unspecified location J01.90 and Upper respiratory tract infection, unspecified type J06.9 [facility] [address] [id number] [address] [place] [address] Oct, Upper respiratory tract infe ction, unspecified type J06.9 [facility] [address] [id number] [address] [place] [address] Jul, [facility] [address] [id number] [address] [place] [phone] Jul, [facility] [address] [id number] [address] [place] [phone] Jun, [facility] [address] [id number] [address] [place] [phone] Jun, [facility] [address] [id number] [address] [place] [address] May, [facility] [address] [id number] [address] [place] [phone] May, [facility] [address] [id number] [address] [place] [phone] Apr, [facility] [address] [id number] [address] [place] [address] Apr, [facility] [address] [id number] [address] [place] [phone] Apr, [facility] [address] [id number] [address] [place] [phone] Apr, IMMUNIZATIONS No Known Immunizations SOCIAL HISTORY [...]
--- OUTSIDE RECORDS SUMMARY | 2019-07-24 01:29 | XMS REPORT ---
Author Author Brittani MANZANO Organization [facility] Address [address] [place] [address] Care Team Providers Care Conductor Pullman Name Role Phone MARY MANZANO Unavailable PROBLEMS Type Condition ICD9-CM Code ZHN39-GQ Code Onset Dates Condition S tatus SNOMED Code Problem Mild intermittent asthma without complication J45. 20 Active 379127821 Problem Generalized anxiety disorder F41.1 A ctive 08182419 Problem Generalized anxiety disorder 300.02 A ctive 91712484 Problem Major depressive disorder, recurrent episode, moderate 296 .32 Active 20904260 Problem Acute sinusitis, recurrence not specified, unspe cified location J01.90 Active 07258512 Problem Mild intermittent asthma with acute exacerbation J 45.21 Active 335109268 ALLERGIES No Information ENCOUNTERS Encounter Location Date Diagnosis [facility] [address] [address] Dec, Mild intermittent asthma wit hout complication J45.20 [facility] [address] [id number] [address] [place] [address] Jul, [facility] [id number] [place] [address] Jul, Mild intermittent asthma wit hout complication J45.20 ; Pneumonitis J18.9 and Generalized anxiety disorder F41.1 [facility] [address] [facility] [id number] [address] [place] [phone] Jun, Mild intermittent asthma wit h acute exacerbation J45.21 and Wheezing R06.2 [facility] [address] [facility] [id number] [address] [place] [address] Apr, Wheezing R06.2 and Acute ana opharyngitis J00 [facility] [address] [id number] [address] [place] [address] September, Muscle strain of right upper back, initial encounter S29.012A [facility] [address] [id number] [address] [place] [address] 12 Jun, 2016 Encounter for immunization Z 23 [facility] [address] [id number] [address] [place] [phone] Dec, [facility] [address] [id number] [address] [place] [address] Dec, Acute sinusitis, recurrence not specified, unspecified location J01.90 and Upper respiratory tract infection, unspecified type J06.9 [facility] [address] [id number] [address] [place] [address] Oct, Upper respiratory tract infe ction, unspecified type J06.9 [facility] [address] [id number] [address] [place] [phone] Jul, [facility] [address] [id number] [address] [place] [phone] Jul, [facility] [address] [id number] [address] [place] [phone] Jun, [facility] [address] [id number] [address] [place] [phone] Jun, [facility] [address] [id number] [address] [place] [phone] May, [facility] [address] [id number] [address] [place] [phone] May, [facility] [address] [id number] [address] [place] [phone] Apr, [facility] [address] [id number] [address] [place] [phone] Apr, [facility] [address] [id number] [address] [place] [phone] Apr, [facility] [address] [facility] [id number] [address] [place] [address] Apr, IMMUNIZATIONS No Known Immunizations SOCIAL HISTORY [...]
--- OUTSIDE RECORDS SUMMARY | 2019-07-24 01:30 | XMS REPORT | Continuity of Care Document ---
Author Organization Unknown Address Unknown Phone Unavailable Allergies Active Description Code Type Severity Reaction Onset Reported/Identified Relationship to Patient Clinical Status Yes No Known Drug Allergies [id number] Drug Allergy Unknown N/A 07/13/2018 Medications There is no data. Problems Date Dx Coded Attending Type Code Diagnosis Diagnosed By 04/26/2014 JOSE JUAN KHAN, MARY Silverman 296.32 MO DEPRESSIVE RECURRENT MODERATE 04/26/2014 JOSE JUAN KHAN, MARY Silverman 300.02 AN GEN ANXIETY 07/13/2018 DANITA LINARES ANIMAL ANATOMY TEACHER Ot 611.72 LUMP OR MASS IN BREAST 07/13/2018 DANITA LINARES ANIMAL ANATOMY TEACHER Ot V16.3 FAMILY HX-BREAST MALIG 07/13/2018 DANITA LINARESP Ot 611.72 LUMP OR MASS IN BREAST 07/13/2018 DANITA LINARESP Ot V76.12 OTH SCREEN MAMMO-MALIGN NEOPLASM OF ANTOINE 07/16/2018 MARK SANTOS MD Ot A41. 9 SEPSIS, UNSPECIFIED ORGANISM 07/16/2018 MARK SANTOS MD Ot E87. 5 HYPERKALEMIA 07/16/2018 MARK SANTOS MD Ot F17.210 NICOTINE DEPENDENCE, CIGARETTES, UNCOMPL 07/16/2018 MARK SANTOS MD Ot I95. 9 HYPOTENSION, UNSPECIFIED 07/16/2018 MARK SANTOS MD, Ot J10. 1 FLU DUE TO OT IDENT INFLUENZA VIRUS W O 07/16/2018 MARK SANTOS MD, Ot J45.901 UNSPECIFIED ASTHMA WITH (ACUTE) EXACERBA 07/16/2018 MARK SANTOS MD, Ot J96. 01 ACUTE RESPIRATORY FAILURE WITH HYPOXIA 07/16/2018 MARK SANTOS MD, Ot J96. 02 ACUTE RESPIRATORY FAILURE WITH HYPERCAPN 07/16/2018 MARK SANTOS MD Ot R65. 20 SEVERE SEPSIS WITHOUT SEPTIC SHOCK 07/17/2018 MARK SANTOS MD Ot A41. 9 SEPSIS, UNSPECIFIED ORGANISM 07/17/2018 MARK SANTOS MD Ot E87. 5 HYPERKALEMIA 07/17/2018 MARK SANTOS MD Ot F17.210 NICOTINE DEPENDENCE, CIGARETTES, UNCOMPL 07/17/2018 MARK SANTOS MD Ot I95. 9 HYPOTENSION, UNSPECIFIED 07/17/2018 MARK SANTOS MD Ot J10. 1 FLU DUE TO OTH IDENT INFLUENZA VIRUS W O 07/17/2018 MARK SANTOS MD Ot J45.901 UNSPECIFIED ASTHMA WITH (ACUTE) EXACERBA 07/17/2018 MARK SANTOS MD Ot J96. 01 ACUTE RESPIRATORY FAILURE WITH HYPOXIA 07/17/2018 MARK SANTOS MD Ot J96. 02 ACUTE RESPIRATORY FAILURE WITH HYPERCAPN 07/17/2018 MARK SANTOS MD Ot R65. 20 SEVERE SEPSIS WITHOUT SEPTIC SHOCK 07/17/2018 MARK SANTOS MD Ot A41. 89 OTHER SPECIFIED SEPSIS 07/17/2018 MARK SANTOS MD Ot B97. 89 OT VIRAL AGENTS THE CAUSE OF DISEASE 07/17/2018 MARK SANTOS MD Ot E87. 5 HYPERKALEMIA 07/17/2018 MARK SANTOS MD Ot F17.210 NICOTINE DEPENDENCE, CIGARETTES, UNCOMPL 07/17/2018 MARK SANTOS MD Ot I95. 9 HYPOTENSION, UNSPECIFIED 07/17/2018 MARK SANTOS MD Ot J10. 1 FLU DUE TO OTH IDENT INFLUENZA VIRUS W O 07/17/2018 MARK SANTOS MD Ot J45.901 UNSPECIFIED ASTHMA WITH (ACUTE) EXACERBA 07/17/2018 MARK SANTOS MD Ot J96. 01 ACUTE RESPIRATORY FAILURE WITH HYPOXIA 07/17/2018 MARK SANTOS MD Ot J96. 02 ACUTE RESPIRATORY FAILURE WITH HYPERCAPN 07/17/2018 MARK SANTOS MD Ot R65. 21 SEVERE SEPSIS WITH SEPTIC SHOCK 07/17/2018 DANITA LINARES ANIMAL ANATOMY TEACHER Ot 611.72 LUMP OR MASS IN BREAST 07/17/2018 DANITA LINARES ANIMAL ANATOMY TEACHER Ot V16.3 FAMILY HX-BREAST MALIG 07/17/2018 DANITA LINARES Jeannette ANIMAL ANATOMY TEACHER Ot 611.72 LUMP OR MASS IN BREAST 07/17/2018 VIJAYDANITA LOPEZ Jeannette ANIMAL ANATOMY TEACHER Ot V76.12 OTH SCREEN MAMMO-MALIGN NEOPLASM OF ANTOINE 07/17/2018 MARK SANTOS MD Ot A41. 89 OTHER SPECIFIED SEPSIS 07/17/2018 MARK SANTOS MD Ot B97. 89 OTH VIRAL AGENTS THE CAUSE OF DISEASE 07/17/2018 MARK SANTOS MD Ot E87. 5 HYPERKALEMIA 07/17/2018 MARK SANTOS MD Ot F17.210 NICOTINE DEPENDENCE, CIGARETTES, UNCOMPL 07/17/2018 MARK SANTOS MD Ot I95. 9 HYPOTENSION, UNSPECIFIED 07/17/2018 MARK SANTOS MD Ot J10. 1 FLU DUE TO OTH IDENT INFLUENZA VIRUS W O 07/17/2018 MARK SANTOS MD Ot J45.901 UNSPECIFIED ASTHMA WITH (ACUTE) EXACERBA 07/17/2018 MARK SANTOS MD Ot J96. 01 ACUTE RESPIRATORY FAILURE WITH HYPOXIA 07/17/2018 MARK SANTOS MD Ot J96. 02 ACUTE RESPIRATORY FAILURE WITH HYPERCAPN 07/17/2018 MARK SANTOS MD Ot R65. 21 SEVERE SEPSIS WITH SEPTIC SHOCK 07/17/2018 MARK SANTOS MD Ot A41. 89 OTHER SPECIFIED SEPSIS 07/17/2018 MARK SANTOS MD Ot B97. 89 OTH VIRAL AGENTS THE CAUSE OF DISEASE 07/17/2018 MARK SANTOS MD Ot E87. 5 HYPERKALEMIA 07/17/2018 MARK SANTOS MD Ot F17.210 NICOTINE DEPENDENCE, CIGARETTES, UNCOMPL 07/17/2018 MARK SANTOS MD Ot I95. 9 HYPOTENSION, UNSPECIFIED 07/17/2018 MARK SANTOS MD Ot J10. 1 FLU DUE TO OTH IDENT INFLUENZA VIRUS W O 07/17/2018 MARK SANTOS MD Ot J45.901 UNSPECIFIED ASTHMA WITH (ACUTE) EXACERBA 07/17/2018 MARK SANTOS MD Ot J96. 01 ACUTE RESPIRATORY FAILURE WITH HYPOXIA 07/17/2018 MARK SANTOS MD Ot J96. 02 ACUTE RESPIRATORY FAILURE WITH HYPERCAPN 07/17/2018 MARK SANTOS MD Ot R65. 21 SEVERE SEPSIS WITH SEPTIC SHOCK 07/17/2018 DANITA LINARES ANIMAL ANATOMY TEACHER Ot 611.72 LUMP OR MASS IN BREAST 07/17/2018 VIJAY, DANITA Machado ANIMAL ANATOMY TEACHER Ot V16.3 FAMILY HX-BREAST MALIG 07/17/2018 DANITA LINARES ANIMAL ANATOMY TEACHER Ot 611.72 LUMP OR MASS IN BREAST 07/17/2018 DANITA LINARES ANIMAL ANATOMY TEACHER Ot V76.12 OTH SCREEN MAMMO-MALIGN NEOPLASM OF ANTOINE 07/17/2018 MARK SANTOS MD Ot A41. 89 OTHER SPECIFIED SEPSIS 07/17/2018 MARK SANTOS MD Ot B97. 89 OTH VIRAL AGENTS THE CAUSE OF DISEASE 07/17/2018 MARK SANTOS MD Ot E87. 5 HYPERKALEMIA 07/17/2018 MARK SANTOS MD Ot F17.210 NICOTINE DEPENDENCE, CIGARETTES, UNCOMPL 07/17/2018 MARK SANTOS MD Ot I95. 9 HYPOTENSION, UNSPECIFIED 07/17/2018 MARK SANTOS MD Ot J10. 1 FLU DUE TO OT IDENT INFLUENZA VIRUS W O 07/17/2018 MARK SANTOS MD, Ot J45.901 UNSPECIFIED ASTHMA WITH (ACUTE) EXACERBA 07/17/2018 MARK SANTOS MD Ot J96. 01 ACUTE RESPIRATORY FAILURE WITH HYPOXIA 07/17/2018 MARK SANTOS MD Ot J96. 02 ACUTE RESPIRATORY FAILURE WITH HYPERCAPN 07/17/2018 MARK SANTOS MD Ot R65. 21 SEVERE SEPSIS WITH SEPTIC SHOCK 07/19/2018 MARK SANTOS MD Ot A41. 89 OTHER SPECIFIED SEPSIS 07/19/2018 MARK SANTOS MD Ot B97. 89 OTH VIRAL AGENTS THE CAUSE OF DISEASE 07/19/2018 MARK SANTOS MD Ot E87. 0 HYPEROSMOLALITY AND HYPERNATREMIA 07/19/2018 MARK SANTOS MD Ot E87. 5 HYPERKALEMIA 07/19/2018 MARK SANTOS MD Ot E87. 8 OTH DISORDERS OF ELECTROLYTE AND FLUID B 07/19/2018 MARK SANTOS MD Ot F17.210 NICOTINE DEPENDENCE, CIGARETTES, UNCOMPL 07/19/2018 MARK SANTOS MD Ot F99 MENTAL DISORDER, NOT OTHERWISE SPECIFIED 07/19/2018 MARK SANTOS MD Ot I95. 9 HYPOTENSION, UNSPECIFIED 07/19/2018 MARK SANTOS MD, Ot J10. 1 FLU DUE TO OTH IDENT INFLUENZA VIRUS W O 07/19/2018 MARK SANTOS MD Ot J45.901 UNSPECIFIED ASTHMA WITH (ACUTE) EXACERBA 07/19/2018 MARK SANTOS MD, Ot J96. 01 ACUTE RESPIRATORY FAILURE WITH HYPOXIA 07/19/2018 MARK SANTOS MD, Ot J96. 02 ACUTE RESPIRATORY FAILURE WITH HYPERCAPN 07/19/2018 MARK SANTOS MD Ot R45. 1 RESTLESSNESS AND AGITATION 07/19/2018 MARK SANTOS MD Ot R65. 21 SEVERE SEPSIS WITH SEPTIC SHOCK 10/01/2018 DANITA LINARES ANIMAL ANATOMY TEACHER Ot 611.72 LUMP OR MASS IN BREAST 10/01/2018 DANITA LINARES ANIMAL ANATOMY TEACHER Ot V76.12 OTH SCREEN MAMMO-MALIGN NEOPLASM OF ANTOINE 10/01/2018 DANITA LINARES ANIMAL ANATOMY TEACHER Ot 611.72 LUMP OR MASS IN BREAST 10/01/2018 DANITA LINARES ANIMAL ANATOMY TEACHER Ot V76.12 OTH SCREEN MAMMO-MALIGN NEOPLASM OF ANTOINE 10/01/2018 JESU JUAREZ APRN Ot G47.10 HYPERSOMNIA, UNSPECIFIED 10/01/2018 JESU JUAREZ ELECTRICAL SYSTEMS DESIGNER Ot J18.8 OTHER PNEUMONIA, UNSPECIFIED ORGANISM 10/01/2018 JESU JUAREZ ELECTRICAL SYSTEMS DESIGNER Ot J30.9 ALLERGIC RHINITIS, UNSPECIFIED 10/01/2018 JESU JUAREZ ELECTRICAL SYSTEMS DESIGNER Ot J98.4 OTHER DISORDERS OF LUNG 10/01/2018 JESU JUAREZ ELECTRICAL SYSTEMS DESIGNER Ot R05 COUGH 10/01/2018 JESU JUAREZ ELECTRICAL SYSTEMS DESIGNER Ot R06.00 DYSPNEA, UNSPECIFIED 10/01/2018 JESU JUAREZ ELECTRICAL SYSTEMS DESIGNER Ot R06.89 OTHER ABNORMALITIES OF BREATHING 10/01/2018 JESU JUAREZ ELECTRICAL SYSTEMS DESIGNER Ot R91.8 OTHER NONSPECIFIC ABNORMAL FINDING OF ABISAI 10/01/2018 ANN JESU Dewitt ELECTRICAL SYSTEMS DESIGNER Ot Z72.0 TOBACCO USE 10/03/2018 EMILY JUAREZINE Renate ELECTRICAL SYSTEMS DESIGNER Ot G47.10 HYPERSOMNIA, UNSPECIFIED 10/03/2018 EMILY JUAREZINE Renate ELECTRICAL SYSTEMS DESIGNER Ot J18.8 OTHER PNEUMONIA, UNSPECIFIED ORGANISM 10/03/2018 EMILY JUAREZINE Renate ELECTRICAL SYSTEMS DESIGNER Ot J30.9 ALLERGIC RHINITIS, UNSPECIFIED 10/03/2018 ANN JESU E ELECTRICAL SYSTEMS DESIGNER Ot J98.4 OTHER DISORDERS OF LUNG 10/03/2018 EMILY JUAREZINE E ELECTRICAL SYSTEMS DESIGNER Ot R05 COUGH 10/03/2018 EMILY JUAREZINE E ELECTRICAL SYSTEMS DESIGNER Ot R06.00 DYSPNEA, UNSPECIFIED 10/03/2018 EMILY JUAREZINE E ELECTRICAL SYSTEMS DESIGNER Ot R06.89 OTHER ABNORMALITIES OF BREATHING 10/03/2018 EMILY JUAREZINE Renate ELECTRICAL SYSTEMS DESIGNER Ot R91.8 OTHER NONSPECIFIC ABNORMAL FINDING OF ABISAI 10/03/2018 JESU JUAREZ ELECTRICAL SYSTEMS DESIGNER Ot Z72.0 TOBACCO USE 10/07/2018 JESU JUAREZ ELECTRICAL SYSTEMS DESIGNER Ot G47.10 HYPERSOMNIA, UNSPECIFIED 10/07/2018 EMILY JUAREZINE E ELECTRICAL SYSTEMS DESIGNER Ot J18.8 OTHER PNEUMONIA, UNSPECIFIED ORGANISM 10/07/2018 EMILY JUAREZINE Renate ELECTRICAL SYSTEMS DESIGNER Ot J30.9 ALLERGIC RHINITIS, UNSPECIFIED 10/07/2018 EMILY JUAREZINE E ELECTRICAL SYSTEMS DESIGNER Ot J98.4 OTHER DISORDERS OF LUNG 10/07/2018 JESU JUAREZ ELECTRICAL SYSTEMS DESIGNER Ot R05 COUGH 10/07/2018 JESU JUAREZ ELECTRICAL SYSTEMS DESIGNER Ot R06.00 DYSPNEA, UNSPECIFIED 10/07/2018 EMILY JUAREZINE Renate ELECTRICAL SYSTEMS DESIGNER Ot R06.89 OTHER ABNORMALITIES OF BREATHING 10/07/2018 EMILY JUAREZINE Renate ELECTRICAL SYSTEMS DESIGNER Ot R91.8 OTHER NONSPECIFIC ABNORMAL FINDING OF ABISAI 10/07/2018 JESU JUAREZ ELECTRICAL SYSTEMS DESIGNER Ot Z72.0 TOBACCO USE Procedures Code [place] [address] PSYC H DIAGNOSTIC EVALUATION 04/26/2014 [id number] IN SERTION OF ENDOTRACHEAL AIRWAY INTO TR 07/13/2018 [id number] RE SPIRATORY VENTILATION, 24- 96 CONSECUTI 07/13/2018 Results Test Result Range Complete blood count (CBC) with automate d white blood cell (WBC) differential - 07/13/18 17:10 Blood leukocytes automated count (number/volume) 14.3 10*3/uL 4.3-11.0 Blood erythrocytes automated count (number/volume) 4.98 10*6/uL 4.35-5.85 Venous blood hemoglobin measurement (mass/volume) 13.0 g/dL 11.5-16.0 Blood hematocrit (volume fraction) 41 % 35-52 Automated erythrocyte mean corpuscular volume 81 [ foz_us] 80-99 Automated erythrocyte mean corpuscular h emoglobin (mass per erythrocyte) 26 pg 25-34 Automated erythrocyte mean corpuscular h emoglobin concentration measurement (mass/volume) 32 g/dL 32-36 Automated erythrocyte distribution width ratio 16. 0 % 10.0- 14.5 Automated blood platelet count (count/volume) 409 10*3/uL 130-400 Automated blood platelet mean volume measurement 9.5 [foz_us] 7.4-10.4 Automated blood neutrophils/100 leukocytes 96 % 42-75 Automated blood lymphocytes/100 leukocytes 2 % 12-44 Blood monocytes/100 leukocytes 1 % 0-12 Automated blood eosinophils/100 leukocytes 0 % 0-10 Automated blood basophils/100 leukocytes 0 % 0-10 Blood neutrophils automated count (number/volume) 13.7 10*3 1.8-7.8 Blood lymphocytes automated count (number/volume) 0.3 10*3 1.0-4.0 Blood monocytes automated count (number/volume) 0. 2 10*3 0.0-1.0 Automated eosinophil count 0.0 10*3/uL 0 .0-0.3 Automated blood basophil count (count/volume) 0.0 10*3/uL 0.0-0.1 Comprehensive metabolic panel - 07/13/18 17:10 Serum or plasma sodium measurement (moles/volume) 135 mmol/L 135-145 Serum or plasma potassium measurement (moles/volume) 3.7 mmol/L 3.6-5.0 Serum or plasma chloride measurement (moles/volume) 103 mmol/L 98-107 Carbon dioxide 16 mmol/L 21-32 Serum or plasma anion gap determination (moles/volume) 16 mmol/L 5-14 Serum or plasma urea nitrogen measurement (mass/volume ) 11 mg/dL 7-18 Serum or plasma creatinine measurement (mass/volume) 0.83 mg/dL 0.60-1.30 Serum or plasma urea nitrogen/creatinine mass ratio 13 NRG Serum or plasma creatinine measurement w ith calculation of estimated glomerular filtration rate > NRG Serum or plasma glucose measurement (mass/volume) 226 mg/dL 70-105 Serum or plasma calcium measurement (mass/volume) 9.9 mg/dL 8.5-10.1 Serum or plasma total bilirubin measurement (mass/volu me) 0.3 mg/dL 0.1-1.0 Serum or plasma alkaline phosphatase gutierrez surement (enzymatic activity/volume) 59 U/L 40-136 Serum or plasma aspartate aminotransfera se measurement (enzymatic activity/volume) 35 U/L 5-34 Serum or plasma alanine aminotransferase measurement (enzymatic activity/volume) 27 U/L 0-55 Serum or plasma protein measurement (mass/volume) 8.0 g/dL 6.4-8.2 Serum or plasma albumin measurement (mass/volume) 4.3 g/dL 3.2-4.5 CALCIUM CORRECTED 9.7 mg/dL 8.5-10.1 Blood manual differential performed dete ction - 07/13/18 17:10 Blood monocytes/100 leukocytes 1 % NRG Manual blood segmented neutrophils/100 leukocytes 95 % NRG Manual blood lymphocytes/100 leukocytes 3 % NRG Manual eosinophils/100 leukocytes in nose 1 % NRG Blood erythrocyte morphology finding identification NORMAL NRG Serum or plasma troponin i.cardiac measu rement (mass/volume) - 07/13/18 17:10 Serum or plasma troponin i.cardiac measurement (mass/v olume) < ng/mL <0.028 Serum or plasma lithium measurement (mol es/volume) - 07/13/18 17:10 BNP level 34.4 pg/mL <100.0 Serum or plasma choriogonadotropin (preg jimi test) detection - 07/13/18 17:10 Serum or plasma choriogonadotropin ( test) de tection NEGATIVE NEGATIVE PROCALCITONIN (PCT) - 07/13/18 17:10 PROCALCITONIN (PCT) 0.06 ng/mL <0.10 Fibrin D-dimer FEU measurement in platel et poor plasma (mass/volume) - 07/13/18 17:34 Fibrin D-dimer FEU measurement in platelet poor plasma (mass/volume) 0.58 ug/mL 0.00-0.49 Arterial blood gas measurement - 9 18:00 Blood pCO2 54 mm[Hg] 35-45 Blood pO2 64 mm[Hg] 79-93 Arterial blood bicarbonate measurement (moles/volume) 22 mmol/L 23-27 Arterial blood base excess by calculation -3.8 mmo l/L -2.5-2.5 Arterial blood oxygen saturation measurement 83 % 94-100 * Inhaled oxygen flow rate 10 NRG Arterial blood pH measurement with patient temperature correction 7.25 7.37-7.43 Arterial blood carbon dioxide, total measurement (mole s/volume) 23.6 mmol/L 21.0-31.0 Body site RT RAD NRG Assessment of wrist artery patency prior to arterial p uncture YES-POS NRG Setting of ventilation mode NO NR G Measurement of body temperature 101 NRG Bacterial blood culture - 07/13/18 18:07 Bacterial blood culture NG NRG Bacterial blood culture - 07/13/18 18:27 Bacterial blood culture NG NRG Arterial blood gas measurement - 9 18:50 Blood pCO2 72 mm[Hg] 35-45 Blood pO2 136 mm[Hg] 79-93 Arterial blood bicarbonate measurement (moles/volume) 24 mmol/L 23-27 Arterial blood base excess by calculation -3.7 mmo l/L -2.5-2.5 Arterial blood oxygen saturation measurement 98 % 94-100 * Inhaled oxygen flow rate 50% BIPAP NR G Arterial blood pH measurement with patient temperature correction 7.16 7.37-7.43 Arterial blood carbon dioxide, total measurement (mole s/volume) 25.6 mmol/L 21.0-31.0 Body site RIGHT RAD NRG Assessment of wrist artery patency prior to arterial p uncture YES-POS NRG Setting of ventilation mode NO NR G Measurement of body temperature 101.4 NRG Influenza virus A and B antigen detectio n - 07/13/18 19:05 CALL POSITIVES (F1 HELP) CURT AT 1930/RLT NRG FLU RESULT POSITIVE FOR INFLUENZA A ANT IGEN, NEG FOR B ANTIGEN, BY IA NRG Sputum Gram stain - 07/13/18 19:48 Sputum Gram stain 3--, 1505. NRG Bacterial sputum culture - 07/13/18 19:4 8 QUANTITY OF GROWTH . NRG Bacterial sputum culture USUAL RESP NRG Arterial blood gas measurement - 9 21:29 Blood pCO2 66 mm[Hg] 35-45 Blood pO2 94 mm[Hg] 79-93 Arterial blood bicarbonate measurement (moles/volume) 23 mmol/L 23-27 Arterial blood base excess by calculation -4.9 mmo l/L -2.5-2.5 Arterial blood oxygen saturation measurement 95 % 94-100 * Inhaled oxygen flow rate 40% FIO2 NRG Arterial blood pH measurement with patient temperature correction 7.16 7.37-7.43 Arterial blood carbon dioxide, total measurement (mole s/volume) 24.4 mmol/L 21.0-31.0 Body site LEFT RADIAL NRG Assessment of wrist artery patency prior to arterial p uncture POSITIVE NRG Setting of ventilation mode YES NR G Measurement of body temperature 99.5 NRG Methicillin resistant Staphylococcus aur eus (MRSA) screening culture - 07/13/18 23:20 Methicillin resistant Staphylococcus aureus (MRSA) scr eening culture NEG NRG Arterial blood gas measurement - 9 00:26 Blood pCO2 67 mm[Hg] 35-45 Blood pO2 79 mm[Hg] 79-93 Arterial blood bicarbonate measurement (moles/volume) 24 mmol/L 23-27 Arterial blood base excess by calculation -3.7 mmo l/L -2.5-2.5 Arterial blood oxygen saturation measurement 94 % 94-100 * Inhaled oxygen flow rate 50% NRG Arterial blood pH measurement with patient temperature correction 7.17 7.37-7.43 Arterial blood carbon dioxide, total measurement (mole s/volume) 25.9 mmol/L 21.0-31.0 Body site RIGHT RADIAL NRG Assessment of wrist artery patency prior to arterial p uncture POSITIVE NRG Setting of ventilation mode YES NR G Measurement of body temperature 97.9 NRG Capillary blood glucose measurement by g lucometer (mass/volume) - 07/14/18 00:34 Capillary blood glucose measurement by glucometer (mas s/volume) 155 mg/dL 70-110 Urine drug screening test - 07/14/18 00: 50 Urine phencyclidine detection by screening method NEGATIVE NEGATIVE Urine benzodiazepines detection by screening method POSITIVE NEGATIVE Urine cocaine detection NEGATIVE NEGATI VE Urine amphetamines detection by screening method P OSITIVE NEGATIVE Urine methamphetamine detection by screening method NEGATIVE NEGATIVE Urine cannabinoids detection by screening method N EGATIVE NEGATIVE Urine opiates detection by screening method NEGATI VE NEGATIVE Urine barbiturates detection NEGATIVE N EGATIVE Screening urine tricyclic antidepressants detection NEGATIVE NEGATIVE Urine methadone detection by screening method NEGA TIVE NEGATIVE Urine oxycodone detection NEGATIVE NEGA TIVE Urine propoxyphene detection NEGATIVE N EGATIVE Urine Legionella pneumophila antigen ass ay - 07/14/18 00:50 Urine Legionella pneumophila antigen assay Negativ e NRG Complete blood count (CBC) with automate d white blood cell (WBC) differential - 07/14/18 03:10 Blood leukocytes automated count (number/volume) 12.9 10*3/uL 4.3-11.0 Blood erythrocytes automated count (number/volume) 4.25 10*6/uL 4.35-5.85 Venous blood hemoglobin measurement (mass/volume) 11.2 g/dL 11.5-16.0 Blood hematocrit (volume fraction) 36 % 35-52 Automated erythrocyte mean corpuscular volume 85 [ foz_us] 80-99 Automated erythrocyte mean corpuscular h emoglobin (mass per erythrocyte) 26 pg 25-34 Automated erythrocyte mean corpuscular h emoglobin concentration measurement (mass/volume) 31 g/dL 32-36 Automated erythrocyte distribution width ratio 16. 3 % 10.0- 14.5 Automated blood platelet count (count/volume) 331 10*3/uL 130-400 Automated blood platelet mean volume measurement 9.2 [foz_us] 7.4-10.4 Automated blood neutrophils/100 leukocytes 94 % 42-75 Automated blood lymphocytes/100 leukocytes 3 % 12-44 Blood monocytes/100 leukocytes 3 % 0-12 Automated blood eosinophils/100 leukocytes 0 % 0-10 Automated blood basophils/100 leukocytes 0 % 0-10 Blood neutrophils automated count (number/volume) 12.1 10*3 1.8-7.8 Blood lymphocytes automated count (number/volume) 0.3 10*3 1.0-4.0 Blood monocytes automated count (number/volume) 0. 4 10*3 0.0-1.0 Automated eosinophil count 0.0 10*3/uL 0 .0-0.3 Automated blood basophil count (count/volume) 0.0 10*3/uL 0.0-0.1 Arterial blood gas measurement - 9 03:10 Blood pCO2 57 mm[Hg] 35-45 Blood pO2 74 mm[Hg] 79-93 Arterial blood bicarbonate measurement (moles/volume) 23 mmol/L 23-27 Arterial blood base excess by calculation -3.2 mmo l/L -2.5-2.5 Arterial blood oxygen saturation measurement 95 % 94-100 * Inhaled oxygen flow rate 50% FIO2 NRG Arterial blood pH measurement with patient temperature correction 7.24 7.37-7.43 Arterial blood carbon dioxide, total measurement (mole s/volume) 24.9 mmol/L 21.0-31.0 Body site LEFT RADIAL NRG Assessment of wrist artery patency prior to arterial p uncture POSITIVE NRG Setting of ventilation mode YES NR G Measurement of body temperature 98.5 NRG Whole blood basic metabolic panel - 08/29 03:10 Serum or plasma sodium measurement (moles/volume) 137 mmol/L 135-145 Serum or plasma potassium measurement (moles/volume) 5.1 mmol/L 3.6-5.0 Serum or plasma chloride measurement (moles/volume) 109 mmol/L 98-107 Carbon dioxide 21 mmol/L 21-32 Serum or plasma anion gap determination (moles/volume) 7 mmol/L 5-14 Serum or plasma urea nitrogen measurement (mass/volume ) 9 mg/dL 7-18 Serum or plasma creatinine measurement (mass/volume) 0.73 mg/dL 0.60-1.30 Serum or plasma urea nitrogen/creatinine mass ratio 12 NRG Serum or plasma creatinine measurement w ith calculation of estimated glomerular filtration rate > NRG Serum or plasma glucose measurement (mass/volume) 160 mg/dL 70-105 Serum or plasma calcium measurement (mass/volume) 8.0 mg/dL 8.5-10.1 Serum or plasma phosphate measurement (m ass/volume) - 07/14/18 03:10 Serum or plasma phosphate measurement (mass/volume) 2.8 mg/dL 2.3-4.7 Magnesium - 07/14/18 03:10 Magnesium 2.5 mg/dL 1.8-2.4 PROCALCITONIN (PCT) - 07/14/18 03:10 PROCALCITONIN (PCT) 0.19 ng/mL <0.10 Capillary blood glucose measurement by g lucometer (mass/volume) - 07/14/18 11:59 Capillary blood glucose measurement by glucometer (mas s/volume) 148 mg/dL 70-110 Blood lactic acid measurement (moles/vol ume) - 07/14/18 13:30 Blood lactic acid measurement (moles/volume) 2.02 mmol/L 0.50-2.00 Serum or plasma lactate measurement (mol es/volume) - 07/14/18 15:45 Serum or plasma lactate measurement (moles/volume) 2.46 mmol/L 0.50-2.00 Capillary blood glucose measurement by g lucometer (mass/volume) - 07/14/18 17:54 Capillary blood glucose measurement by glucometer (mas s/volume) 140 mg/dL 70-110 Blood lactic acid measurement (moles/vol ume) - 07/14/18 19:00 Blood lactic acid measurement (moles/volume) 2.03 mmol/L 0.50-2.00 Serum or plasma lactate measurement (mol es/volume) - 07/14/18 21:10 Serum or plasma lactate measurement (moles/volume) 1.38 mmol/L 0.50-2.00 Complete blood count (CBC) with automate d white blood cell (WBC) differential - 07/15/18 03:30 Blood leukocytes automated count (number/volume) 13.5 10*3/uL 4.3-11.0 Blood erythrocytes automated count (number/volume) 3.44 10*6/uL 4.35-5.85 Venous blood hemoglobin measurement (mass/volume) 9.4 g/dL 11.5-16.0 Blood hematocrit (volume fraction) 30 % 35-52 Automated erythrocyte mean corpuscular volume 87 [ foz_us] 80-99 Automated erythrocyte mean corpuscular h emoglobin (mass per erythrocyte) 27 pg 25-34 Automated erythrocyte mean corpuscular h emoglobin concentration measurement (mass/volume) 31 g/dL 32-36 Automated erythrocyte distribution width ratio 17. 1 % 10.0- 14.5 Automated blood platelet count (count/volume) 330 10*3/uL 130-400 Automated blood platelet mean volume measurement 9.4 [foz_us] 7.4-10.4 Automated blood neutrophils/100 leukocytes 94 % 42-75 Automated blood lymphocytes/100 leukocytes 3 % 12-44 Blood monocytes/100 leukocytes 3 % 0-12 Automated blood eosinophils/100 leukocytes 0 % 0-10 Automated blood basophils/100 leukocytes 0 % 0-10 Blood neutrophils automated count (number/volume) 12.7 10*3 1.8-7.8 Blood lymphocytes automated count (number/volume) 0.4 10*3 1.0-4.0 Blood monocytes automated count (number/volume) 0. 5 10*3 0.0-1.0 Automated eosinophil count 0.0 10*3/uL 0 .0-0.3 Automated blood basophil count (count/volume) 0.0 10*3/uL 0.0-0.1 Whole blood basic metabolic panel - 09/28 03:30 Serum or plasma sodium measurement (moles/volume) 141 mmol/L 135-145 Serum or plasma potassium measurement (moles/volume) 4.2 mmol/L 3.6-5.0 Serum or plasma chloride measurement (moles/volume) 115 mmol/L 98-107 Carbon dioxide 19 mmol/L 21-32 Serum or plasma anion gap determination (moles/volume) 7 mmol/L 5-14 Serum or plasma urea nitrogen measurement (mass/volume ) 15 mg/dL 7-18 Serum or plasma creatinine measurement (mass/volume) 0.73 mg/dL 0.60-1.30 Serum or plasma urea nitrogen/creatinine mass ratio 21 NRG Serum or plasma creatinine measurement w ith calculation of estimated glomerular filtration rate > NRG Serum or plasma glucose measurement (mass/volume) 142 mg/dL 70-105 Serum or plasma calcium measurement (mass/volume) 8.0 mg/dL 8.5-10.1 Serum or plasma phosphate measurement (m ass/volume) - 07/15/18 03:30 Serum or plasma phosphate measurement (mass/volume) 2.8 mg/dL 2.3-4.7 Magnesium - 07/15/18 03:30 Magnesium 2.3 mg/dL 1.8-2.4 Arterial blood gas measurement - 9 03:40 Blood pCO2 42 mm[Hg] 35-45 Blood pO2 84 mm[Hg] 79-93 Arterial blood bicarbonate measurement (moles/volume) 20 mmol/L 23-27 Arterial blood base excess by calculation -5.1 mmo l/L -2.5-2.5 Arterial blood oxygen saturation measurement 98 % 94-100 * Inhaled oxygen flow rate 35% NRG Arterial blood pH measurement with patient temperature correction 7.30 7.37-7.43 Arterial blood carbon dioxide, total measurement (mole s/volume) 21.8 mmol/L 21.0-31.0 Body site RIGHT RADIAL NRG Assessment of wrist artery patency prior to arterial p uncture POSITIVE NRG Setting of ventilation mode YES NR G Measurement of body temperature 96.8 NRG Capillary blood glucose measurement by g lucometer (mass/volume) - 07/15/18 13:23 Capillary blood glucose measurement by glucometer (mas s/volume) 122 mg/dL 70-110 Capillary blood glucose measurement by g lucometer (mass/volume) - 07/15/18 17:22 Capillary blood glucose measurement by glucometer (mas s/volume) 143 mg/dL 70-110 Complete blood count (CBC) with automate d white blood cell (WBC) differential - 07/16/18 03:20 Blood leukocytes automated count (number/volume) 14.6 10*3/uL 4.3-11.0 Blood erythrocytes automated count (number/volume) 3.59 10*6/uL 4.35-5.85 Venous blood hemoglobin measurement (mass/volume) 9.4 g/dL 11.5-16.0 Blood hematocrit (volume fraction) 31 % 35-52 Automated erythrocyte mean corpuscular volume 87 [ foz_us] 80-99 Automated erythrocyte mean corpuscular h emoglobin (mass per erythrocyte) 26 pg 25-34 Automated erythrocyte mean corpuscular h emoglobin concentration measurement (mass/volume) 30 g/dL 32-36 Automated erythrocyte distribution width ratio 17. 3 % 10.0- 14.5 Automated blood platelet count (count/volume) 337 10*3/uL 130-400 Automated blood platelet mean volume measurement 9.5 [foz_us] 7.4-10.4 Automated blood neutrophils/100 leukocytes 87 % 42-75 Automated blood lymphocytes/100 leukocytes 9 % 12-44 Blood monocytes/100 leukocytes 4 % 0-12 Automated blood eosinophils/100 leukocytes 0 % 0-10 Automated blood basophils/100 leukocytes 0 % 0-10 Blood neutrophils automated count (number/volume) 12.8 10*3 1.8-7.8 Blood lymphocytes automated count (number/volume) 1.3 10*3 1.0-4.0 Blood monocytes automated count (number/volume) 0. 6 10*3 0.0-1.0 Automated eosinophil count 0.0 10*3/uL 0 .0-0.3 Automated blood basophil count (count/volume) 0.0 10*3/uL 0.0-0.1 Arterial blood gas measurement - 9 03:20 Blood pCO2 49 mm[Hg] 35-45 Blood pO2 77 mm[Hg] 79-93 Arterial blood bicarbonate measurement (moles/volume) 25 mmol/L 23-27 Arterial blood base excess by calculation -0.2 mmo l/L -2.5-2.5 Arterial blood oxygen saturation measurement 95 % 94-100 * Inhaled oxygen flow rate 30% NRG Arterial blood pH measurement with patient temperature correction 7.33 7.37-7.43 Arterial blood carbon dioxide, total measurement (mole s/volume) 26.2 mmol/L 21.0-31.0 Body site R RAD NRG Assessment of wrist artery patency prior to arterial p uncture YES-POS NRG Setting of ventilation mode YES NR G Measurement of body temperature 100.7 NRG Whole blood basic metabolic panel - 10/29 03:20 Serum or plasma sodium measurement (moles/volume) 147 mmol/L 135-145 Serum or plasma potassium measurement (moles/volume) 4.0 mmol/L 3.6-5.0 Serum or plasma chloride measurement (moles/volume) 116 mmol/L 98-107 Carbon dioxide 24 mmol/L 21-32 Serum or plasma anion gap determination (moles/volume) 7 mmol/L 5-14 Serum or plasma urea nitrogen measurement (mass/volume ) 15 mg/dL 7-18 Serum or plasma creatinine measurement (mass/volume) 0.66 mg/dL 0.60-1.30 Serum or plasma urea nitrogen/creatinine mass ratio 23 NRG Serum or plasma creatinine measurement w ith calculation of estimated glomerular filtration rate > NRG Serum or plasma glucose measurement (mass/volume) 100 mg/dL 70-105 Serum or plasma calcium measurement (mass/volume) 8.2 mg/dL 8.5-10.1 Serum or plasma phosphate measurement (m ass/volume) - 07/16/18 03:20 Serum or plasma phosphate measurement (mass/volume) 2.3 mg/dL 2.3-4.7 Magnesium - 07/16/18 03:20 Magnesium 2.1 mg/dL 1.8-2.4 Serum or plasma lithium measurement (mol es/volume) - 07/16/18 03:20 BNP level 111.3 pg/mL <100.0 Arterial blood gas measurement - 9 10:01 Blood pCO2 35 mm[Hg] 35-45 Blood pO2 85 mm[Hg] 79-93 Arterial blood bicarbonate measurement (moles/volume) 26 mmol/L 23-27 Arterial blood base excess by calculation 2.8 mmol /L -2.5-2.5 Arterial blood oxygen saturation measurement 98 % 94-100 * Inhaled oxygen flow rate 30% NRG Arterial blood pH measurement with patient temperature correction 7.49 7.37-7.43 Arterial blood carbon dioxide, total measurement (mole s/volume) 26.8 mmol/L 21.0-31.0 Body site LEFT RADIAL NRG Assessment of wrist artery patency prior to arterial p uncture POSITIVE NRG Setting of ventilation mode NO NR G Measurement of body temperature 100.4 NRG Arterial blood gas measurement - 9 13:15 Blood pCO2 38 mm[Hg] 35-45 Blood pO2 62 mm[Hg] 79-93 Arterial blood bicarbonate measurement (moles/volume) 29 mmol/L 23-27 Arterial blood base excess by calculation 5.2 mmol /L -2.5-2.5 Arterial blood oxygen saturation measurement 94 % 94-100 * Inhaled oxygen flow rate 50% VAPOTHERM NRG Arterial blood pH measurement with patient temperature correction 7.49 7.37-7.43 Arterial blood carbon dioxide, total measurement (mole s/volume) 29.7 mmol/L 21.0-31.0 Body site LEFT RADIAL NRG Assessment of wrist artery patency prior to arterial p uncture POSITIVE NRG Setting of ventilation mode NO NR G Measurement of body temperature 98.9 NRG Capillary blood glucose measurement by g lucometer (mass/volume) - 07/16/18 18:27 Capillary blood glucose measurement by glucometer (mas s/volume) 77 mg/dL 70-110 Complete blood count (CBC) with automate d white blood cell (WBC) differential - 07/17/18 03:45 Blood leukocytes automated count (number/volume) 10.9 10*3/uL 4.3-11.0 Blood erythrocytes automated count (number/volume) 4.25 10*6/uL 4.35-5.85 Venous blood hemoglobin measurement (mass/volume) 11.3 g/dL 11.5-16.0 Blood hematocrit (volume fraction) 36 % 35-52 Automated erythrocyte mean corpuscular volume 84 [ foz_us] 80-99 Automated erythrocyte mean corpuscular h emoglobin (mass per erythrocyte) 27 pg 25-34 Automated erythrocyte mean corpuscular h emoglobin concentration measurement (mass/volume) 32 g/dL 32-36 Automated erythrocyte distribution width ratio 17. 0 % 10.0- 14.5 Automated blood platelet count (count/volume) 401 10*3/uL 130-400 Automated blood platelet mean volume measurement 9.2 [foz_us] 7.4-10.4 Automated blood neutrophils/100 leukocytes 91 % 42-75 Automated blood lymphocytes/100 leukocytes 6 % 12-44 Blood monocytes/100 leukocytes 3 % 0-12 Automated blood eosinophils/100 leukocytes 0 % 0-10 Automated blood basophils/100 leukocytes 0 % 0-10 Blood neutrophils automated count (number/volume) 9.9 10*3 1.8-7.8 Blood lymphocytes automated count (number/volume) 0.7 10*3 1.0-4.0 Blood monocytes automated count (number/volume) 0. 3 10*3 0.0-1.0 Automated eosinophil count 0.0 10*3/uL 0 .0-0.3 Automated blood basophil count (count/volume) 0.0 10*3/uL 0.0-0.1 Whole blood basic metabolic panel - /0 11/28 03:45 Serum or plasma sodium measurement (moles/volume) 144 mmol/L 135-145 Serum or plasma potassium measurement (moles/volume) 3.7 mmol/L 3.6-5.0 Serum or plasma chloride measurement (moles/volume) 105 mmol/L 98-107 Carbon dioxide 25 mmol/L 21-32 Serum or plasma anion gap determination (moles/volume) 14 mmol/L 5-14 Serum or plasma urea nitrogen measurement (mass/volume ) 13 mg/dL 7-18 Serum or plasma creatinine measurement (mass/volume) 0.63 mg/dL 0.60-1.30 Serum or plasma urea nitrogen/creatinine mass ratio 21 NRG Serum or plasma creatinine measurement w ith calculation of estimated glomerular filtration rate > NRG Serum or plasma glucose measurement (mass/volume) 99 mg/dL 70-105 Serum or plasma calcium measurement (mass/volume) 8.8 mg/dL 8.5-10.1 Serum or plasma phosphate measurement (m ass/volume) - 07/17/18 03:45 Serum or plasma phosphate measurement (mass/volume) 3.4 mg/dL 2.3-4.7 Magnesium - 07/17/18 03:45 Magnesium 2.1 mg/dL 1.8-2.4 Capillary blood glucose measurement by g lucometer (mass/volume) - 07/17/18 11:28 Capillary blood glucose measurement by glucometer (mas s/volume) 98 mg/dL 70-110 Capillary blood glucose measurement by g lucometer (mass/volume) - 07/17/18 21:21 Capillary blood glucose measurement by glucometer (mas s/volume) 128 mg/dL 70-110 Complete blood count (CBC) with automate d white blood cell (WBC) differential - 07/18/18 03:50 Blood leukocytes automated count (number/volume) 8.7 10*3/uL 4.3-11.0 Blood erythrocytes automated count (number/volume) 4.57 10*6/uL 4.35-5.85 Venous blood hemoglobin measurement (mass/volume) 12.0 g/dL 11.5-16.0 Blood hematocrit (volume fraction) 38 % 35-52 Automated erythrocyte mean corpuscular volume 83 [ foz_us] 80-99 Automated erythrocyte mean corpuscular h emoglobin (mass per erythrocyte) 26 pg 25-34 Automated erythrocyte mean corpuscular h emoglobin concentration measurement (mass/volume) 32 g/dL 32-36 Automated erythrocyte distribution width ratio 16. 0 % 10.0- 14.5 Automated blood platelet count (count/volume) 372 10*3/uL 130-400 Automated blood platelet mean volume measurement 9.9 [foz_us] 7.4-10.4 Automated blood neutrophils/100 leukocytes 83 % 42-75 Automated blood lymphocytes/100 leukocytes 12 % 12-44 Blood monocytes/100 leukocytes 5 % 0-12 Automated blood eosinophils/100 leukocytes 0 % 0-10 Automated blood basophils/100 leukocytes 1 % 0-10 Blood neutrophils automated count (number/volume) 7.2 10*3 1.8-7.8 Blood lymphocytes automated count (number/volume) 1.1 10*3 1.0-4.0 Blood monocytes automated count (number/volume) 0. 4 10*3 0.0-1.0 Automated eosinophil count 0.0 10*3/uL 0 .0-0.3 Automated blood basophil count (count/volume) 0.0 10*3/uL 0.0-0.1 Whole blood basic metabolic panel - 12/29 03:50 Serum or plasma sodium measurement (moles/volume) 141 mmol/L 135-145 Serum or plasma potassium measurement (moles/volume) 3.6 mmol/L 3.6-5.0 Serum or plasma chloride measurement (moles/volume) 105 mmol/L 98-107 Carbon dioxide 24 mmol/L 21-32 Serum or plasma anion gap determination (moles/volume) 12 mmol/L 5-14 Serum or plasma urea nitrogen measurement (mass/volume ) 14 mg/dL 7-18 Serum or plasma creatinine measurement (mass/volume) 0.65 mg/dL 0.60-1.30 Serum or plasma urea nitrogen/creatinine mass ratio 22 NRG Serum or plasma creatinine measurement w ith calculation of estimated glomerular filtration rate > NRG Serum or plasma glucose measurement (mass/volume) 130 mg/dL 70-105 Serum or plasma calcium measurement (mass/volume) 9.3 mg/dL 8.5-10.1 Serum or plasma phosphate measurement (m ass/volume) - 07/18/18 03:50 Serum or plasma phosphate measurement (mass/volume) 3.0 mg/dL 2.3-4.7 Magnesium - 07/18/18 03:50 Magnesium 2.1 mg/dL 1.8-2.4 Capillary blood glucose measurement by g lucometer (mass/volume) - 07/18/18 12:10 Capillary blood glucose measurement by glucometer (mas s/volume) 205 mg/dL 70-110 Capillary blood glucose measurement by g lucometer (mass/volume) - 07/18/18 17:58 Capillary blood glucose measurement by glucometer (mas s/volume) 197 mg/dL 70-110 Complete blood count (CBC) with automate d white blood cell (WBC) differential - 07/19/18 04:55 Blood leukocytes automated count (number/volume) 12.1 10*3/uL 4.3-11.0 Blood erythrocytes automated count (number/volume) 4.42 10*6/uL 4.35-5.85 Venous blood hemoglobin measurement (mass/volume) 11.8 g/dL 11.5-16.0 Blood hematocrit (volume fraction) 36 % 35-52 Automated erythrocyte mean corpuscular volume 82 [ foz_us] 80-99 Automated erythrocyte mean corpuscular h emoglobin (mass per erythrocyte) 27 pg 25-34 Automated erythrocyte mean corpuscular h emoglobin concentration measurement (mass/volume) 32 g/dL 32-36 Automated erythrocyte distribution width ratio 15. 9 % 10.0- 14.5 Automated blood platelet count (count/volume) 465 10*3/uL 130-400 Automated blood platelet mean volume measurement 9.0 [foz_us] 7.4-10.4 Automated blood neutrophils/100 leukocytes 54 % 42-75 Automated blood lymphocytes/100 leukocytes 38 % 12-44 Blood monocytes/100 leukocytes 8 % 0-12 Automated blood eosinophils/100 leukocytes 0 % 0-10 Automated blood basophils/100 leukocytes 0 % 0-10 Blood neutrophils automated count (number/volume) 6.5 10*3 1.8-7.8 Blood lymphocytes automated count (number/volume) 4.6 10*3 1.0-4.0 Blood monocytes automated count (number/volume) 0. 9 10*3 0.0-1.0 Automated eosinophil count 0.0 10*3/uL 0 .0-0.3 Automated blood basophil count (count/volume) 0.0 10*3/uL 0.0-0.1 Whole blood basic metabolic panel - /0 01/29 04:55 Serum or plasma sodium measurement (moles/volume) 141 mmol/L 135-145 Serum or plasma potassium measurement (moles/volume) 2.8 mmol/L 3.6-5.0 Serum or plasma chloride measurement (moles/volume) 105 mmol/L 98-107 Carbon dioxide 25 mmol/L 21-32 Serum or plasma anion gap determination (moles/volume) 11 mmol/L 5-14 Serum or plasma urea nitrogen measurement (mass/volume ) 10 mg/dL 7-18 Serum or plasma creatinine measurement (mass/volume) 0.62 mg/dL 0.60-1.30 Serum or plasma urea nitrogen/creatinine mass ratio 16 NRG Serum or plasma creatinine measurement w ith calculation of estimated glomerular filtration rate > NRG Serum or plasma glucose measurement (mass/volume) 137 mg/dL 70-105 Serum or plasma calcium measurement (mass/volume) 8.9 mg/dL 8.5-10.1 Whole blood basic metabolic panel - 01/29 13:55 Serum or plasma sodium measurement (moles/volume) 140 mmol/L 135-145 Serum or plasma potassium measurement (moles/volume) 3.9 mmol/L 3.6-5.0 Serum or plasma chloride measurement (moles/volume) 105 mmol/L 98-107 Carbon dioxide 23 mmol/L 21-32 Serum or plasma anion gap determination (moles/volume) 12 mmol/L 5-14 Serum or plasma urea nitrogen measurement (mass/volume ) 9 mg/dL 7-18 Serum or plasma creatinine measurement (mass/volume) 0.61 mg/dL 0.60-1.30 Serum or plasma urea nitrogen/creatinine mass ratio 15 NRG Serum or plasma creatinine measurement w ith calculation of estimated glomerular filtration rate > NRG Serum or plasma glucose measurement (mass/volume) 129 mg/dL 70-105 Serum or plasma calcium measurement (mass/volume) 9.4 mg/dL 8.5-10.1 Arterial blood gas measurement - 0 03:15 Blood pCO2 31 mm[Hg] 35-45 Blood pO2 58 mm[Hg] 79-93 Arterial blood bicarbonate measurement (moles/volume) 21 mmol/L 23-27 Arterial blood base excess by calculation -2.1 mmo l/L -2.5-2.5 Arterial blood oxygen saturation measurement 91 % 94-100 * Inhaled oxygen flow rate 2L NRG Arterial blood pH measurement with patient temperature correction 7.45 7.37-7.43 Arterial blood carbon dioxide, total measurement (mole s/volume) 22.4 mmol/L 21.0-31.0 Body site LEFT RADIAL NRG Assessment of wrist artery patency prior to arterial p uncture YES-POS NRG Setting of ventilation mode NO NR G Measurement of body temperature 36.6 NRG Influenza virus A and B antigen detectio n - 07/22/19 03:16 FLU RESULT NEGATIVE FOR INFLUENZA A AND B ANTIGENS BY IA NRG Complete blood count (CBC) with automate d white blood cell (WBC) differential - 07/22/19 03:20 Blood leukocytes automated count (number/volume) 14.3 10*3/uL 4.3-11.0 Blood erythrocytes automated count (number/volume) 5.17 10*6/uL 4.35-5.85 Venous blood hemoglobin measurement (mass/volume) 14.2 g/dL 11.5-16.0 Blood hematocrit (volume fraction) 44 % 35-52 Automated erythrocyte mean corpuscular volume 86 [ foz_us] 80-99 Automated erythrocyte mean corpuscular h emoglobin (mass per erythrocyte) 28 pg 25-34 Automated erythrocyte mean corpuscular h emoglobin concentration measurement (mass/volume) 32 g/dL 32-36 Automated erythrocyte distribution width ratio 14. 9 % 10.0- 14.5 Automated blood platelet count (count/volume) 477 10*3/uL 130-400 Automated blood platelet mean volume measurement 9.1 [foz_us] 7.4-10.4 Automated blood neutrophils/100 leukocytes 58 % 42-75 Automated blood lymphocytes/100 leukocytes 26 % 12-44 Blood monocytes/100 leukocytes 5 % 0-12 Automated blood eosinophils/100 leukocytes 11 % 0-10 Automated blood basophils/100 leukocytes 0 % 0-10 Blood neutrophils automated count (number/volume) 8.2 10*3 1.8-7.8 Blood lymphocytes automated count (number/volume) 3.7 10*3 1.0-4.0 Blood monocytes automated count (number/volume) 0. 7 10*3 0.0-1.0 Automated eosinophil count 1.6 10*3/uL 0 .0-0.3 Automated blood basophil count (count/volume) 0.0 10*3/uL 0.0-0.1 Blood lactic acid measurement (moles/vol ume) - 07/22/19 03:20 Blood lactic acid measurement (moles/volume) 1.66 mmol/L 0.50-2.00 PT panel in platelet poor plasma by coag ulation assay - 07/22/19 03:20 Prothrombin time (PT) in platelet poor plasma by coagu lation assay 13.8 s 12.2-14.7 INR in platelet poor plasma or blood by coagulation as say 1.0 0.8-1.4 Activated partial thromboplastin time (a PTT) in platelet poor plasma bycoagulation assay - 07/22/19 03:20 Activated partial thromboplastin time (a PTT) in platelet poor plasma bycoagulation assay 37 s 24-35 Comprehensive metabolic panel - 03/11/20 03:20 Serum or plasma sodium measurement (moles/volume) 137 mmol/L 135-145 Serum or plasma potassium measurement (moles/volume) 4.0 mmol/L 3.6-5.0 Serum or plasma chloride measurement (moles/volume) 106 mmol/L 98-107 Carbon dioxide 18 mmol/L 21-32 Serum or plasma anion gap determination (moles/volume) 13 mmol/L 5-14 Serum or plasma urea nitrogen measurement (mass/volume ) 10 mg/dL 7-18 Serum or plasma creatinine measurement (mass/volume) 0.72 mg/dL 0.60-1.30 Serum or plasma urea nitrogen/creatinine mass ratio 14 NRG Serum or plasma creatinine measurement w ith calculation of estimated glomerular filtration rate > NRG Serum or plasma glucose measurement (mass/volume) 98 mg/dL 70-105 Serum or plasma calcium measurement (mass/volume) 9.1 mg/dL 8.5-10.1 Serum or plasma total bilirubin measurement (mass/volu me) 0.2 mg/dL 0.1-1.0 Serum or plasma alkaline phosphatase gutierrez surement (enzymatic activity/volume) 66 U/L 40-136 Serum or plasma aspartate aminotransfera se measurement (enzymatic activity/volume) 20 U/L 5-34 Serum or plasma alanine aminotransferase measurement (enzymatic activity/volume) 23 U/L 0-55 Serum or plasma protein measurement (mass/volume) 7.2 g/dL 6.4-8.2 Serum or plasma albumin measurement (mass/volume) 4.2 g/dL 3.2-4.5 CALCIUM CORRECTED 8.9 mg/dL 8.5-10.1 Magnesium - 07/22/19 03:20 Magnesium 2.1 mg/dL 1.6-2.4 Serum or plasma choriogonadotropin (preg jimi test) detection - 07/22/19 03:20 Serum or plasma choriogonadotropin ( test) de tection NEGATIVE NEGATIVE PROCALCITONIN (PCT) - 07/22/19 03:20 PROCALCITONIN (PCT) 0.02 ng/mL <0.10 Bacterial blood culture - 07/22/19 03:20 Bacterial blood culture NG NRG Bacterial blood culture - 07/22/19 03:39 Bacterial blood culture NG NRG Complete urinalysis with reflex to cultu re - 07/22/19 06:50 Urine color determination YELLOW NRG Urine clarity determination CLEAR NR G Urine pH measurement by test strip 7.0 5-9 Specific gravity of urine by test strip 1.010 1.016-1.022 Urine protein assay by test strip, semi-quantitative NEGATIVE NEGATIVE Urine glucose detection by automated test strip NE GATIVE NEGATIVE Erythrocytes detection in urine sediment by light micr oscopy NEGATIVE NEGATIVE Urine ketones detection by automated test strip NE GATIVE NEGATIVE Urine nitrite detection by test strip NEGATIVE NEGATIVE Urine total bilirubin detection by test strip NEGA TIVE NEGATIVE Urine urobilinogen measurement by automated test strip (mass/volume) 0.2 mg/dL < = 1.0 Urine leukocyte esterase detection by dipstick NEG ATIVE NEGATIVE Automated urine sediment erythrocyte cou nt by microscopy (number/high power field) NONE NRG Automated urine sediment leukocyte count by microscopy (number/high power field) NONE NRG Bacteria detection in urine sediment by light microsco py NEGATIVE NRG Squamous epithelial cells detection in u rine sediment by light microscopy 0-2 NRG Crystals detection in urine sediment by light microsco py NONE NRG Casts detection in urine sediment by light microscopy NONE NRG Mucus detection in urine sediment by light microscopy NEGATIVE NRG Complete urinalysis with reflex to culture CULTURE PENDING NRG Bacterial urine culture - 07/22/19 06:50 Bacterial urine culture NG NRG Urine Legionella pneumophila antigen ass ay - 07/22/19 06:50 Urine Legionella pneumophila antigen assay Negativ e NRG Streptococcus pneumoniae antigen detecti on - 07/22/19 06:50 Streptococcus pneumoniae antigen detection Negativ e NRG Blood lactic acid measurement (moles/vol ume) - 07/22/19 08:51 Blood lactic acid measurement (moles/volume) 1.56 mmol/L 0.50-2.00 Complete blood count (CBC) with automate d white blood cell (WBC) differential - 07/23/19 02:54 Blood leukocytes automated count (number/volume) 21.8 10*3/uL 4.3-11.0 Blood erythrocytes automated count (number/volume) 4.29 10*6/uL 4.35-5.85 Venous blood hemoglobin measurement (mass/volume) 11.7 g/dL 11.5-16.0 Blood hematocrit (volume fraction) 37 % 35-52 Automated erythrocyte mean corpuscular volume 87 [ foz_us] 80-99 Automated erythrocyte mean corpuscular h emoglobin (mass per erythrocyte) 27 pg 25-34 Automated erythrocyte mean corpuscular h emoglobin concentration measurement (mass/volume) 32 g/dL 32-36 Automated erythrocyte distribution width ratio 15. 2 % 10.0- 14.5 Automated blood platelet count (count/volume) 444 10*3/uL 130-400 Automated blood platelet mean volume measurement 9.2 [foz_us] 7.4-10.4 Automated blood neutrophils/100 leukocytes 92 % 42-75 Automated blood lymphocytes/100 leukocytes 5 % 12-44 Blood monocytes/100 leukocytes 3 % 0-12 Automated blood eosinophils/100 leukocytes 0 % 0-10 Automated blood basophils/100 leukocytes 0 % 0-10 Blood neutrophils automated count (number/volume) 20.2 10*3 1.8-7.8 Blood lymphocytes automated count (number/volume) 1.0 10*3 1.0-4.0 Blood monocytes automated count (number/volume) 0. 6 10*3 0.0-1.0 Automated eosinophil count 0.0 10*3/uL 0 .0-0.3 Automated blood basophil count (count/volume) 0.0 10*3/uL 0.0-0.1 Comprehensive metabolic panel - 07/23/19 02:54 Serum or plasma sodium measurement (moles/volume) 140 mmol/L 135-145 Serum or plasma potassium measurement (moles/volume) 3.9 mmol/L 3.6-5.0 Serum or plasma chloride measurement (moles/volume) 112 mmol/L 98-107 Carbon dioxide 19 mmol/L 21-32 Serum or plasma anion gap determination (moles/volume) 9 mmol/L 5-14 Serum or plasma urea nitrogen measurement (mass/volume ) 11 mg/dL 7-18 Serum or plasma creatinine measurement (mass/volume) 0.77 mg/dL 0.60-1.30 Serum or plasma urea nitrogen/creatinine mass ratio 14 NRG Serum or plasma creatinine measurement w ith calculation of estimated glomerular filtration rate > NRG Serum or plasma glucose measurement (mass/volume) 173 mg/dL 70-105 Serum or plasma calcium measurement (mass/volume) 8.6 mg/dL 8.5-10.1 Serum or plasma total bilirubin measurement (mass/volu me) 0.1 mg/dL 0.1-1.0 Serum or plasma alkaline phosphatase gutierrze surement (enzymatic activity/volume) 51 U/L 40-136 Serum or plasma aspartate aminotransfera se measurement (enzymatic activity/volume) 11 U/L 5-34 Serum or plasma alanine aminotransferase measurement (enzymatic activity/volume) 16 U/L 0-55 Serum or plasma protein measurement (mass/volume) 6.2 g/dL 6.4-8.2 Serum or plasma albumin measurement (mass/volume) 3.6 g/dL 3.2-4.5 CALCIUM CORRECTED 8.9 mg/dL 8.5-10.1 Manual absolute plasma cell count - 07/11 07/02 02:54 Blood monocytes/100 leukocytes 1 % NRG Manual blood segmented neutrophils/100 leukocytes 90 % NRG Blood band neutrophils/100 leukocytes 3 % NRG Manual blood lymphocytes/100 leukocytes 6 % NRG Blood erythrocyte morphology finding identification NORMAL NRG Encounters ACCT No. Visit Date/Time Discharge Status Pt. Type Provider Facility Loc./Unit Complaint [id number] 04/26/2014 09:49:00 04/26/2014 23:59: 59 CLS Outpatient JOSE JUAN KHAN, MARY A [id number] 03/23/2019 09:15:00 23:59:59 CLS Preadmit JESU JUAREZ APRN [facility] RAD ALLERGIC RHINIT IS,DYSPNEA [id number] 10/01/2018 09:11:00 019 12:00:00 DIS Outpatient JESU JUAREZ APRN [facility] RT COUGH [id number] 07/13/2018 18:45:00 019 14:43:00 DIS Inpatient MARK SANTOS MD Via [facility] 4TH ASHMA EXERVATION ACUTE RESP FAILURE,HYPOXIA [id number] 09/08/2013 07:53:00 014 23:59:59 CLS Outpatient DANITA LINARES [facility] RAD 6 MONTH FOLLOW UP [id number] 01/28/2013 13:34:00 013 23:59:59 CLS Outpatient DANITA LINARES [facility] RAD LFT BREAST MASS [id number] 07/22/2019 07:01:[address] Inpatient TOM VÁZQUEZ, MARK Kim [facility] CSD ASTHMA EXACERBATION,ACUTE RE SP FAILURE HYPOXIA;-
--- OUTSIDE RECORDS SUMMARY | 2019-07-24 02:27 | XMS REPORT | Continuity of Care Document ---
Author Organization Unknown Address Unknown Phone Unavailable Allergies Active Description Code Type Severity Reaction Onset Reported/Identified Relationship to Patient Clinical Status Yes No Known Drug Allergies [id number] Drug Allergy Unknown N/A 07/13/2018 Medications There is no data. Problems Date Dx Coded Attending Type Code Diagnosis Diagnosed By 04/26/2014 JOSE JUAN KHAN, MARY Silverman 296.32 MO DEPRESSIVE RECURRENT MODERATE 04/26/2014 JOSE JUAN KHAN, MARY Silverman 300.02 AN GEN ANXIETY 07/13/[address] MAN Ot 611.72 LUMP OR MASS IN BREAST 07/13/[address] MAN Ot V16.3 FAMILY HX-BREAST MALIG 07/13/2018 DANITA [...] SEPSIS WITH SEPTIC SHOCK 07/17/[address] MAN Ot 611.72 LUMP OR MASS IN BREAST 07/17/[address] MAN Ot V16.3 FAMILY HX-BREAST MALIG 07/17/[address]IVE MAN Ot 611.72 LUMP OR MASS IN BREAST 07/17/[address] Jeannette DRIVE MAN Ot V76.12 OTH SCREEN MAMMO-MALIGN NEOPLASM OF [...] SEPSIS WITH SEPTIC SHOCK 07/17/[address] MAN Ot 611.72 LUMP OR MASS IN BREAST 07/17/2018 VIJAY, DANITA Machado DRIVE MAN Ot V16.3 FAMILY HX-BREAST MALIG 07/17/[address] MAN Ot 611.72 LUMP OR MASS IN BREAST 07/17/[address] MAN Ot V76.12 OTH SCREEN MAMMO-MALIGN NEOPLASM OF [...] SEPSIS WITH SEPTIC SHOCK 10/01/[address] MAN Ot 611.72 LUMP OR MASS IN BREAST 10/01/[address] MAN Ot V76.12 OTH SCREEN MAMMO-MALIGN NEOPLASM OF ANTOINE 10/01/[address] MAN Ot 611.72 LUMP OR MASS IN BREAST 10/01/[address] MAN Ot V76.12 OTH SCREEN MAMMO-MALIGN NEOPLASM OF ANTOINE 10/01/2018 JESU JUAREZ APRN Ot G47.10 HYPERSOMNIA, UNSPECIFIED 10/01/2018 JESU JUAREZ PHARMACY INFORMATICIST Ot J18.8 OTHER PNEUMONIA, UNSPECIFIED ORGANISM 10/01/2018 JESU JUAREZ PHARMACY INFORMATICIST Ot J30.9 ALLERGIC RHINITIS, UNSPECIFIED 10/01/2018 JESU JUAREZ PHARMACY INFORMATICIST Ot J98.4 OTHER DISORDERS OF LUNG 10/01/2018 JESU JUAREZ PHARMACY INFORMATICIST Ot R05 COUGH 10/01/2018 JESU JUAREZ PHARMACY INFORMATICIST Ot R06.00 DYSPNEA, UNSPECIFIED 10/01/2018 JESU JUAREZ PHARMACY INFORMATICIST Ot R06.89 OTHER ABNORMALITIES OF BREATHING 10/01/2018 JESU JUAREZ PHARMACY INFORMATICIST Ot R91.8 OTHER NONSPECIFIC ABNORMAL FINDING OF ABISAI 10/01/2018 ANN JESU Dewitt PHARMACY INFORMATICIST Ot Z72.0 TOBACCO USE 10/03/2018 EMILY JUAREZINE Renate PHARMACY INFORMATICIST Ot G47.10 HYPERSOMNIA, UNSPECIFIED 10/03/2018 EMILY JUAREZINE Renate PHARMACY INFORMATICIST Ot J18.8 OTHER PNEUMONIA, UNSPECIFIED ORGANISM 10/03/2018 EMILY JUAREZINE Renate PHARMACY INFORMATICIST Ot J30.9 ALLERGIC RHINITIS, UNSPECIFIED 10/03/2018 ANN JESU E PHARMACY INFORMATICIST Ot J98.4 OTHER DISORDERS OF LUNG 10/03/2018 EMILY JUAREZINE E PHARMACY INFORMATICIST Ot R05 COUGH 10/03/2018 EMILY JUAREZINE E PHARMACY INFORMATICIST Ot R06.00 DYSPNEA, UNSPECIFIED 10/03/2018 EMILY JUAREZINE E PHARMACY INFORMATICIST Ot R06.89 OTHER ABNORMALITIES OF BREATHING 10/03/2018 EMILY JUAREZINE Renate PHARMACY INFORMATICIST Ot R91.8 OTHER NONSPECIFIC ABNORMAL FINDING OF ABISAI 10/03/2018 JESU JUAREZ PHARMACY INFORMATICIST Ot Z72.0 TOBACCO USE 10/07/2018 JESU JUAREZ PHARMACY INFORMATICIST Ot G47.10 HYPERSOMNIA, UNSPECIFIED 10/07/2018 EMILY JUAREZINE E PHARMACY INFORMATICIST Ot J18.8 OTHER PNEUMONIA, UNSPECIFIED ORGANISM 10/07/2018 EMILY JUAREZINE Renate PHARMACY INFORMATICIST Ot J30.9 ALLERGIC RHINITIS, UNSPECIFIED 10/07/2018 EMILY JUAREZINE E PHARMACY INFORMATICIST Ot J98.4 OTHER DISORDERS OF LUNG 10/07/2018 JESU JUAREZ PHARMACY INFORMATICIST Ot R05 COUGH 10/07/2018 JESU JUAREZ PHARMACY INFORMATICIST Ot R06.00 DYSPNEA, UNSPECIFIED 10/07/2018 EMILY JUAREZINE Renate PHARMACY INFORMATICIST Ot R06.89 OTHER ABNORMALITIES OF BREATHING 10/07/2018 EMILY JUAREZINE Renate PHARMACY INFORMATICIST Ot R91.8 OTHER NONSPECIFIC ABNORMAL FINDING OF ABISAI 10/07/2018 JESU JUAREZ PHARMACY INFORMATICIST Ot Z72.0 TOBACCO USE Procedures Code Description [place] [address] PSYC H DIAGNOSTIC EVALUATION 04/26/2014 [id number] IN SERTION OF ENDOTRACHEAL AIRWAY INTO TR 07/13/2018 [id number] RE SPIRATORY VENTILATION, 24- 96 CONSECUTI 07/13/2018 [...] plasma alkaline phosphatase gutierrez surement (enzymatic activity/volume) 51 U/L 40-136 Serum [...] Status Pt. Type Provider Facility Loc./Unit Complaint [id number] 04/26/2014 09:49:00 04/26/2014 23:59: 59 CLS Outpatient JOSE JUAN KHAN, MARY A [id number] 03/23/2019 09:15:00 23:59:59 CLS Preadmit JESU JUAREZ APRN [facility] RAD ALLERGIC RHINIT IS,DYSPNEA [id number] 10/01/2018 09:11:00 019 12:00:00 DIS Outpatient JESU JUAREZ APRN [facility] RT COUGH [id number] 07/13/2018 18:45:00 019 14:43:00 DIS Inpatient MARK SANTOS MD [facility] 4TH ASHMA EXERVATION ACUTE RESP FAILURE,HYPOXIA [id number] 09/08/2013 07:53:00 014 23:59:59 CLS Outpatient DANITA LINARES [facility] RAD 6 MONTH FOLLOW UP [id number] 01/28/2013 13:34:00 013 23:59:59 CLS Outpatient DANITA LINARES [facility] RAD LFT BREAST MASS [id number] 07/22/2019 07:01:[address] Inpatient TOM VÁZQUEZ, MARK Kim [facility] CSD ASTHMA EXACERBATION,ACUTE RE SP FAILURE HYPOXIA;-
[2019-07-24] MEDS: RT-ALBUTEROL/IPRATROPIUM 3 ML (DUONEB) VIAL INH SCH ×3 (02:48→09:26)
[2019-07-24 03:45] LABS: BASOPHILS % (AUTO) 0 % (0-10); EOSINOPHILS % (AUTO) 0 % (0-10); HEMATOCRIT 37 % (35-52); HEMOGLOBIN 11.9 G/DL (11.5-16.0); LYMPHOCYTES # (AUTO) 1.2 X 10^3 (1.0-4.0); LYMPHOCYTES % (AUTO) 5 % (12-44); MEAN CORPUSCULAR HEMOGLOBIN 28 PG (25-34); MEAN CORPUSCULAR HGB CONC 32 G/DL (32-36); MEAN CORPUSCULAR VOLUME 87 FL (80-99); MEAN PLATELET VOLUME 9.2 FL (7.4-10.4); MONOCYTES # (AUTO) 0.4 X 10^3 (0.0-1.0); MONOCYTES % (AUTO) 2 % (0-12); NEUTROPHILS # (AUTO) 20.6 X 10^3 (1.8-7.8); NEUTROPHILS % (AUTO) 93 % (42-75); PLATELET COUNT 475 10^3/uL (130-400); RED CELL DISTRIBUTION WIDTH 15.6 % (10.0-14.5); WHITE BLOOD COUNT 22.1 10^3/uL (4.3-11.0)
[2019-07-24 04:03] VITALS: BP 124/72
[2019-07-24] MEDS: methylPREDNISolone 40 MG/ML (Solu-MEDROL) VIAL IV SCH (04:03)
[2019-07-24 04:08] LABS: ALANINE AMINOTRANSFERASE 17 U/L (0-55); ALBUMIN 3.9 GM/DL (3.2-4.5); ALKALINE PHOSPHATASE 54 U/L (40-136); BILIRUBIN,TOTAL 0.1 MG/DL (0.1-1.0); BUN/CREATININE RATIO 16; CALCIUM 8.6 MG/DL (8.5-10.1); CARBON DIOXIDE 18 MMOL/L (21-32); CHLORIDE 110 MMOL/L (98-107); CREATININE SERUM 0.68 MG/DL (0.60-1.30); GFR ESTIMATED > 60; GLUCOSE 156 MG/DL (70-105); POTASSIUM 3.9 MMOL/L (3.6-5.0); SODIUM 141 MMOL/L (135-145); TOTAL PROTEIN 6.4 GM/DL (6.4-8.2)
--- NOTE | 2019-07-24 04:49 | Pulmonary Progress Note ---
Sepsis Event Evaluation Height, Weight, BMI Height: 5'7.00" Weight: 210lbs. 3.0oz. 95.119712ma; 32.38 BMI Method:Stated Focused Exam Lactate Level 07/22/19 03:20: Lactic Acid Level 1.66 07/22/19 08:51: Lactic Acid Level 1.56 Exam Exam Vital Signs Date Time Temp Pulse Resp B/P (MAP) Pulse Ox O2 Delivery O2 Flow Rate FiO2 07/24/19 04:03 37.0 97 16 124/72 (89) 95 Room Air 07/24/19 02:49 96 Room Air 07/23/19 23:55 Room Air 07/23/19 23:24 36.5 99 18 134/73 (93) 94 Room Air 07/23/19 22:55 98 Room Air 07/23/19 21:00 Room Air 07/23/19 20:00 Room Air 07/23/19 19:45 37.4 114 19 112/68 (83) 95 07/23/19 19:29 94 Room Air 07/23/19 16:53 30 Vapotherm 20 07/23/19 15:38 93 Room Air 0.00 07/23/19 15:32 37.2 105 20 122/76 (91) 94 Room Air 07/23/19 12:32 36.8 103 20 125/80 (95) 91 07/23/19 12:09 30 Vapotherm 20 07/23/19 10:09 95 Room Air 07/23/19 08:30 Vapotherm 20.00 30 07/23/19 08:15 30 Vapotherm 20 07/23/19 07:58 35.7 80 18 125/86 (99) 94 Vapotherm 20.00 30.00 I & O 07/24/19 07:00 Intake Total 1620 ml Output Total 1200 ml Balance 420 ml Height & Weight Height: 5'7.00" Weight: 210lbs. 3.0oz. 95.209180dn; 32.38 BMI Method:Stated General Appearance: No Apparent Distress, WD/WN HEENT: PERRL/EOMI, TMs Normal, Normal ENT Inspection, Pharynx Normal Neck: Full Range of Motion, Normal Inspection, Non Tender, Supple Respiratory: Lungs Clear, No Accessory Muscle Use, Other (on vapotherm) Cardiovascular: Regular Rate, Rhythm, No Murmur Capillary Refill: Less Than 3 Seconds Gastrointestinal: normal bowel sounds, non tender, soft Extremity: Normal Capillary Refill, Normal Inspection, No Pedal Edema Neurologic/Psychiatric: Alert, Oriented x3 Skin: Normal Color, Warm/Dry Lymphatic: No Adenopathy Results Lab Laboratory Tests 07/23/19 02:54 07/24/19 03:08 Assessment/Plan Assessment/Plan Acute respiratory failure --- much improved -Repeat CXR -Continue duonebs -Continue Abx AsthmaAE -Change Solumedrol to prednisone taper Leukocytosis - probably secondary to steroids Metabolic acidosis -LA is normal Sepsis with probable PNA Hx of lung nodules -Check CT of chest AYAZ LANDIN DO Jul 24, 2019 04:49
[2019-07-24] MEDS ORDERED: CHLORASEPTIC LOZENGE MM PRN (05:15)
--- NOTE | 2019-07-24 07:36 | Diagnostic Imaging Report ---
INDICATION: Shortness of air, asthma exacerbation. TECHNIQUE: Single view chest 6:01 AM. CORRELATION STUDY: 07/22/2019 FINDINGS: The heart size, mediastinal configuration and pulmonary vascularity are within normal limits. Minimal discoid atelectasis suggested in the left lung base. No infiltrate. IMPRESSION: 1. Negative for acute abnormality of the chest. Dictated by: Dictated on workstation # [id number]
[2019-07-24 07:41] VITALS: BP 153/94
[2019-07-24] MEDS ORDERED: predniSONE 10 MG TAB PO SCH (09:00)
[2019-07-24] MEDS: RT-ADVAIR HFA 115/21 MCG PER PUFF IH SCH (09:26)
[2019-07-24] MEDS ORDERED: FLUT12AE4 IH (09:50)
[2019-07-24] MEDS ORDERED: MONT10TA26 PO (09:50)
[2019-07-24] MEDS ORDERED: PRED10TA22 PO (09:50)
--- NOTE | 2019-07-24 09:53 | Discharge Summary ---
Diagnosis/Chief Complaint Date of Admission Jul 22, 2019 at 07:01 Date of Discharge Discharge Date: Jul 24, 2019 Admission Diagnosis Acute Hypoxic Respiratory Failure Status Asthmaticus Much improved from presentation Continue IV steroids Supplement oxygen to keep sats >90 MAT protocol Add Richard and Maritza Will check procalcitonin and attempt tp DC abx if negative Pulm consulted, appreciate recs Primary Care No,Local Physician Discharge Diagnosis (1) Acute respiratory failure with hypoxia Status: Acute (2) Failure of outpatient treatment Status: Acute (3) Asthma exacerbation Status: Acute Discharge Summary Discharge Physical Exam Allergies: Coded Allergies: No Known Drug Allergies (Unverified , 07/13/18) Vitals & I&Os Vital Signs Date Time Temp Pulse Resp B/P (MAP) Pulse Ox O2 Delivery O2 Flow Rate FiO2 07/24/19 09:26 94 Room Air 07/24/19 07:41 36.4 96 16 153/94 (113) 07/23/19 16:53 20 07/23/19 15:38 0.00 Hospital Course Labs (last 24 hrs) Laboratory Tests 07/23/19 16:15: 07/24/19 03:08: White Blood Count 22.1H, Red Blood Count 4.25L, Hemoglobin 11.9, Hematocrit 37, Mean Corpuscular Volume 87, Mean Corpuscular Hemoglobin 28, Mean Corpuscular Hemoglobin Concent 32, Red Cell Distribution Width 15.6H, Platelet Count 475H, Mean Platelet Volume 9.2, Neutrophils (%) (Auto) 93H, Lymphocytes (%) (Auto) 5L, Monocytes (%) (Auto) 2, Eosinophils (%) (Auto) 0, Basophils (%) (Auto) 0, Neutrophils # (Auto) 20.6H, Lymphocytes # (Auto) 1.2, Monocytes # (Auto) 0.4, Eosinophils # (Auto) 0.0, Basophils # (Auto) 0.0, Sodium Level 141, Potassium Level 3.9, Chloride Level 110H, Carbon Dioxide Level 18L, Anion Gap 13, Blood Urea Nitrogen 11, Creatinine 0.68, Estimat Glomerular Filtration Rate > 60, BUN/Creatinine Ratio 16, Glucose Level 156H, Calcium Level 8.6, Corrected Calcium 8.7, Total Bilirubin 0.1, Aspartate Amino Transf (AST/SGOT) 10, Alanine Aminotransferase (ALT/SGPT) 17, Alkaline Phosphatase 54, Total Protein 6.4, Albumin 3.9 Microbiology 07/22/19 Urine Culture - Final, Complete NO GROWTH 07/22/19 Blood Culture - Preliminary, Resulted No growth 07/22/19 Influenza Types A,B Antigen (KETAN) - Final, Complete Patient resulted labs reviewed. Pending Labs Laboratory Tests 07/24/19 03:08: White Blood Count 22.1, Red Blood Count 4.25, Hemoglobin 11.9, Hematocrit 37, Mean Corpuscular Volume 87, Mean Corpuscular Hemoglobin 28, Mean Corpuscular Hemoglobin Concent 32, Red Cell Distribution Width 15.6, Platelet Count 475, Mean Platelet Volume 9.2, Neutrophils (%) (Auto) 93, Lymphocytes (%) (Auto) 5, Monocytes (%) (Auto) 2, Eosinophils (%) (Auto) 0, Basophils (%) (Auto) 0, Neutrophils # (Auto) 20.6, Lymphocytes # (Auto) 1.2, Monocytes # (Auto) 0.4, Eosinophils # (Auto) 0.0, Basophils # (Auto) 0.0, Sodium Level 141, Potassium Level 3.9, Chloride Level 110, Carbon Dioxide Level 18, Anion Gap 13, Blood Urea Nitrogen 11, Creatinine 0.68, Estimat Glomerular Filtration Rate > 60, BUN/Creatinine Ratio 16, Glucose Level 156, Calcium Level 8.6, Corrected Calcium 8.7, Total Bilirubin 0.1, Aspartate Amino Transf (AST/SGOT) 10, Alanine Aminotransferase (ALT/SGPT) 17, Alkaline Phosphatase 54, Total Protein 6.4, Albumin 3.9 Imaging: Reviewed Imaging Report Discharge Home Medications: Active Scripts Active Prednisone 10 Mg Tab.ds.pk 10 Mg PO DAILY Take 6 tabs(60mg)daily,decrease by 1 tab(10mg)every other day. Montelukast Sodium 10 Mg Tablet 10 Mg PO HS Advair Hfa 115-21 Mcg Inhaler (Fluticasone/Salmeterol) 12 Gm Hfa.aer.ad 2 Puff IH BID@ Reported Rebeca Allergy (Fexofenadine HCl) 180 Mg Tablet 180 Mg PO DAILY PRN Doxycycline Monohydrate 100 Mg Capsule 100 Mg PO BID FILLED 07-14-2019 #14/7 DAYS SUPPLY Proventil Hfa (Albuterol Sulfate) 6.7 Gm Hfa.aer.ad 2 Puff INH Q6H Instructions to patient/family Please see electronic discharge instructions given to patient. Clinical Quality Measures DVT/VTE Risk/Contraindication: Risk Factor Score Per Nursin RFS Level Per Nursing on Admit: 1=Low/No VTE PPX Problem Qualifiers (1) Asthma exacerbation: Asthma severity: moderate Asthma persistence: persistent Qualified Codes: J45.41 - Moderate persistent asthma with (acute) exacerbation MARK SANTOS MD Jul 24, 2019 09:53
[2019-07-24] MEDS ORDERED: BENZ100C18 PO (11:39)
[2019-07-24 12:00] VITALS: BP 149/76
== END 2019-07-24 13:00 | disposition home or self-care (01) | DRG 189 ==
LOC: EDUNIT# 03:05 → ER 03:06 → CSD 07:01
PROVIDERS: ADMIT Family Medicine; ATTEND Family Medicine
DX: J96.01 Acute respiratory failure with hypoxia (principal); J45.902 Unspecified asthma with status asthmaticus; E87.2 Acidosis; F17.210 Nicotine dependence, cigarettes, uncomplicated; Z98.51 Tubal ligation status
CPT/HCPCS: 36415; 71045; 80053; 81000; 82805; 83605; 83735; 84145; 84703; 85007; 85025; 85027; 85610; 85730; 87040; 87088; 87449; 87631; 87804; 87899; 94640; 94760

== ENCOUNTER 2019-10-06 07:01 | Emergency (ER) | payer MEDICAID, OTHER ==
[~2019-10-06] VITALS: Ht 170.2 cm; Wt 86.2 kg
[~2019-10-06 07:01] MED LIST changes: +BENZ100C18 PO; +DOXY100C42 PO; +FEXO180T84 PO; +FLUT12AE4 IH; +MONT10TA26 PO; +PRED10TA22 PO; +RT-ALBUINH INH
--- OUTSIDE RECORDS SUMMARY | 2019-10-06 07:08 | XMS REPORT | Continuity of Care Document ---
Author Organization Unknown Address Unknown Phone Unavailable Allergies Active Description Code Type Severity Reaction Onset Reported/Identified Relationship to Patient Clinical Status Yes No Known Drug Allergies [id number] Drug Allergy Unknown N/A 07/13/2018 Medications There is no data. Problems Date Dx Coded Attending Type Code Diagnosis Diagnosed By 04/26/2014 JOSE JUAN KHAN, MARY Silverman 296.32 MO DEPRESSIVE RECURRENT MODERATE 04/26/2014 JOSE JUAN KHAN, MARY Silverman 300.02 AN GEN ANXIETY 07/13/2018 DANITA LINARES RETAIL SALESWORKER Ot 611.72 LUMP OR MASS IN BREAST 07/13/2018 DANITA LINARES RETAIL SALESWORKER Ot V16.3 FAMILY HX-BREAST MALIG 07/13/2018 DANITA [...] SEPSIS WITH SEPTIC SHOCK 07/17/2018 DANITA LINARES RETAIL SALESWORKER Ot 611.72 LUMP OR MASS IN BREAST 07/17/2018 DANITA LINARES RETAIL SALESWORKER Ot V16.3 FAMILY HX-BREAST MALIG 07/17/2018 DANITA LINARES Jeannette RETAIL SALESWORKER Ot 611.72 LUMP OR MASS IN BREAST 07/17/2018 VIJAYDANITA LOPEZ Jeannette RETAIL SALESWORKER Ot V76.12 OTH SCREEN MAMMO-MALIGN NEOPLASM OF [...] SEPSIS WITH SEPTIC SHOCK 07/17/2018 DANITA LINARES RETAIL SALESWORKER Ot 611.72 LUMP OR MASS IN BREAST 07/17/2018 VIJAY, DANITA Machado RETAIL SALESWORKER Ot V16.3 FAMILY HX-BREAST MALIG 07/17/2018 DANITA LINARES RETAIL SALESWORKER Ot 611.72 LUMP OR MASS IN BREAST 07/17/2018 DANITA LINARES RETAIL SALESWORKER Ot V76.12 OTH SCREEN MAMMO-MALIGN NEOPLASM OF [...] SEPSIS WITH SEPTIC SHOCK 10/01/2018 DANITA LINARES RETAIL SALESWORKER Ot 611.72 LUMP OR MASS IN BREAST 10/01/2018 DANITA LINARES RETAIL SALESWORKER Ot V76.12 OTH SCREEN MAMMO-MALIGN NEOPLASM OF ANTOINE 10/01/2018 DANITA LINARES RETAIL SALESWORKER Ot 611.72 LUMP OR MASS IN BREAST 10/01/2018 DANITA LINARES RETAIL SALESWORKER Ot V76.12 OTH SCREEN MAMMO-MALIGN NEOPLASM OF ANTOINE 10/01/2018 JESU JUAREZ APRN Ot G47.10 HYPERSOMNIA, UNSPECIFIED 10/01/2018 JESU JUAREZ ALL PURPOSE CLERK Ot J18.8 OTHER PNEUMONIA, UNSPECIFIED ORGANISM 10/01/2018 JESU JUAREZ ALL PURPOSE CLERK Ot J30.9 ALLERGIC RHINITIS, UNSPECIFIED 10/01/2018 JESU JUAREZ ALL PURPOSE CLERK Ot J98.4 OTHER DISORDERS OF LUNG 10/01/2018 JESU JUAREZ ALL PURPOSE CLERK Ot R05 COUGH 10/01/2018 JESU JUAREZ ALL PURPOSE CLERK Ot R06.00 DYSPNEA, UNSPECIFIED 10/01/2018 JESU JUAREZ ALL PURPOSE CLERK Ot R06.89 OTHER ABNORMALITIES OF BREATHING 10/01/2018 ANNEMILYJESU Renate ALL PURPOSE CLERK Ot R91.8 OTHER NONSPECIFIC ABNORMAL FINDING OF ABISAI 10/01/2018 ANNEMILYJESU Renate ALL PURPOSE CLERK Ot Z72.0 TOBACCO USE 10/03/2018 ANNEMILYJESU E ALL PURPOSE CLERK Ot G47.10 HYPERSOMNIA, UNSPECIFIED 10/03/2018 ANNEMILY PLUMMERINE E ALL PURPOSE CLERK Ot J18.8 OTHER PNEUMONIA, UNSPECIFIED ORGANISM 10/03/2018 ANNEMILYJESU E ALL PURPOSE CLERK Ot J30.9 ALLERGIC RHINITIS, UNSPECIFIED 10/03/2018 ANN, JESU E ALL PURPOSE CLERK Ot J98.4 OTHER DISORDERS OF LUNG 10/03/2018 ANN, JESU E ALL PURPOSE CLERK Ot R05 COUGH 10/03/2018 ANN, JESU E ALL PURPOSE CLERK Ot R06.00 DYSPNEA, UNSPECIFIED 10/03/2018 ANN, JESU E ALL PURPOSE CLERK Ot R06.89 OTHER ABNORMALITIES OF BREATHING 10/03/2018 ANNEMILYJESU E ALL PURPOSE CLERK Ot R91.8 OTHER NONSPECIFIC ABNORMAL FINDING OF ABISAI 10/03/2018 ANNEMILY PLUMMERINE Renate ALL PURPOSE CLERK Ot Z72.0 TOBACCO USE 10/07/2018 ANNEMILYJESU E ALL PURPOSE CLERK Ot G47.10 HYPERSOMNIA, UNSPECIFIED 10/07/2018 ANN, JESU E ALL PURPOSE CLERK Ot J18.8 OTHER PNEUMONIA, UNSPECIFIED ORGANISM 10/07/2018 ANNEMILYJESU E ALL PURPOSE CLERK Ot J30.9 ALLERGIC RHINITIS, UNSPECIFIED 10/07/2018 ANN, JESU E ALL PURPOSE CLERK Ot J98.4 OTHER DISORDERS OF LUNG 10/07/2018 ANN JESU E ALL PURPOSE CLERK Ot R05 COUGH 10/07/2018 ANNEMILYJESU E ALL PURPOSE CLERK Ot R06.00 DYSPNEA, UNSPECIFIED 10/07/2018 ANN, JESU E ALL PURPOSE CLERK Ot R06.89 OTHER ABNORMALITIES OF BREATHING 10/07/2018 ANNEMILYJESU Renate ALL PURPOSE CLERK Ot R91.8 OTHER NONSPECIFIC ABNORMAL FINDING OF ABISAI 10/07/2018 ANNEMILY PLUMMERINE E ALL PURPOSE CLERK Ot Z72.0 TOBACCO USE 07/24/2019 MARK SANTOS MD Ot E87. 2 ACIDOSIS 07/24/2019 MARK SANTOS MD Ot F17.210 NICOTINE DEPENDENCE, CIGARETTES, UNCOMPL 07/24/2019 MARK SANTOS MD Ot J45.902 UNSPECIFIED ASTHMA WITH STATUS ASTHMATIC 07/24/2019 TOM VÁZQUEZ, MARK Kim Ot J96. 01 ACUTE RESPIRATORY FAILURE WITH HYPOXIA 07/24/2019 TOM VÁZQUEZ, MARK Kim Ot Z98. 51 TUBAL LIGATION STATUS Procedures Code Description [place] [address] PS H DIAGNOSTIC EVALUATION 04/26/2014 [id number] IN SERTION OF ENDOTRACHEAL AIRWAY INTO TR 07/13/2018 [id number] RE SPIRATORY VENTILATION, 24- 96 CONSECUTI 07/13/2018 [...] stain - 07/13/18 19:48 Sputum Gram stain 3-4-19, 1505. NRG Bacterial sputum culture - 07/13/18 [...] measurement (mass/volume) 2.8 mg/dL 2.3-4.7 Magnesium - 03/05/19 03:30 Magnesium 2.3 mg/dL 1.8-2.4 Arterial blood [...] 0.0-0.1 Whole blood basic metabolic panel - 11/28 03:45 Serum or plasma sodium measurement [...] 0.0-0.1 Whole blood basic metabolic panel - 01/29 04:55 Serum or plasma sodium measurement [...] 37 s 24-35 Comprehensive metabolic panel - 07/22/19 03:20 Serum or plasma sodium measurement (moles/volume) [...] Blood erythrocyte morphology finding identification NORMAL NRG Complete blood count (CBC) with automate d white blood cell (WBC) differential - 07/24/19 03:08 Blood leukocytes automated count (number/volume) 22.1 10*3/uL 4.3-11.0 Blood erythrocytes automated count (number/volume) 4.25 10*6/uL 4.35-5.85 Venous blood hemoglobin measurement (mass/volume) 11.9 g/dL 11.5-16.0 Blood hematocrit (volume fraction) 37 % 35-52 Automated erythrocyte mean corpuscular volume 87 [ foz_us] 80-99 Automated erythrocyte mean corpuscular h emoglobin (mass per erythrocyte) 28 pg 25-34 Automated erythrocyte mean corpuscular h emoglobin concentration measurement (mass/volume) 32 g/dL 32-36 Automated erythrocyte distribution width ratio 15. 6 % 10.0- 14.5 Automated blood platelet count (count/volume) 475 10*3/uL 130-400 Automated blood platelet mean volume measurement 9.2 [foz_us] 7.4-10.4 Automated blood neutrophils/100 leukocytes 93 % 42-75 Automated blood lymphocytes/100 leukocytes 5 % 12-44 Blood monocytes/100 leukocytes 2 % 0-12 Automated blood eosinophils/100 leukocytes 0 % 0-10 Automated blood basophils/100 leukocytes 0 % 0-10 Blood neutrophils automated count (number/volume) 20.6 10*3 1.8-7.8 Blood lymphocytes automated count (number/volume) 1.2 10*3 1.0-4.0 Blood monocytes automated count (number/volume) 0. 4 10*3 0.0-1.0 Automated eosinophil count 0.0 10*3/uL 0 .0-0.3 Automated blood basophil count (count/volume) 0.0 10*3/uL 0.0-0.1 Comprehensive metabolic panel - 07/24/19 03:08 Serum or plasma sodium measurement (moles/volume) 141 mmol/L 135-145 Serum or plasma potassium measurement (moles/volume) 3.9 mmol/L 3.6-5.0 Serum or plasma chloride measurement (moles/volume) 110 mmol/L 98-107 Carbon dioxide 18 mmol/L 21-32 Serum or plasma anion gap determination (moles/volume) 13 mmol/L 5-14 Serum or plasma urea nitrogen measurement (mass/volume ) 11 mg/dL 7-18 Serum or plasma creatinine measurement (mass/volume) 0.68 mg/dL 0.60-1.30 Serum or plasma urea nitrogen/creatinine mass ratio 16 NRG Serum or plasma creatinine measurement w ith calculation of estimated glomerular filtration rate > NRG Serum or plasma glucose measurement (mass/volume) 156 mg/dL 70-105 Serum or plasma calcium measurement (mass/volume) 8.6 mg/dL 8.5-10.1 Serum or plasma total bilirubin measurement (mass/volu me) 0.1 mg/dL 0.1-1.0 Serum or plasma alkaline phosphatase gutierrez surement (enzymatic activity/volume) 54 U/L 40-136 Serum or plasma aspartate aminotransfera se measurement (enzymatic activity/volume) 10 U/L 5-34 Serum or plasma alanine aminotransferase measurement (enzymatic activity/volume) 17 U/L 0-55 Serum or plasma protein measurement (mass/volume) 6.4 g/dL 6.4-8.2 Serum or plasma albumin measurement (mass/volume) 3.9 g/dL 3.2-4.5 CALCIUM CORRECTED 8.7 mg/dL 8.5-10.1 Encounters ACCT No. Visit Date/Time Discharge Status Pt. Type Provider Facility Loc./Unit Complaint [id number] 04/26/2014 09:49:00 04/26/2014 23:59: 59 CLS Outpatient JOSE JUAN KHAN, MARY A [id number] 07/22/2019 07:01:00 020 13:00:00 DIS Inpatient TOM VÁZQUEZ, MARK Kim [facility] CSD ASTHMA EXACERBATION,ACU TE RESP FAILURE HYPOXIA;- [id number] 03/23/2019 09:15:00 019 23:59:59 CLS Preadmit JESU JUAREZ APRN [facility] RAD ALLERGIC RHINIT IS,DYSPNEA [id number] 10/01/2018 09:11:00 019 12:00:00 DIS Outpatient JESU JUAREZ APRN [facility] RT COUGH [id number] 07/13/2018 18:45:00 019 14:43:00 DIS Inpatient MARK SANTOS MD [facility] 4TH ASHMA EXERVATION ACUTE RESP FAILURE,HYPOXIA [id number] 09/08/2013 07:53:00 014 23:59:59 CLS Outpatient DANITA LINARESP [facility] RAD 6 MONTH FOLLOW UP [id number] 01/28/2013 13:34:00 013 23:59:59 CLS Outpatient DANITA LINARES RETAIL SALESWORKER [facility] RAD LFT BREAST MASS [id number] 04/20/2019 14:45:00 04/20/2019 23:59:5 9 CLS Outpatient MARLEY DELGADO [facility]
--- OUTSIDE RECORDS SUMMARY | 2019-10-06 07:08 | XMS REPORT ---
Author Author Brittani MANZANO Organization [facility] Address [address] [place] [address] Care Team Providers Care Specialist Field Engineer Name Role Phone MARY MANZANO Unavailable PROBLEMS Type Condition ICD9-CM Code [id number] Code Onset Dates Condition S tatus SNOMED Code Problem Mild intermittent asthma without complication J45. 20 Active 653291359 Problem Generalized anxiety disorder F41.1 A ctive 63623127 Problem Generalized anxiety disorder 300.02 A ctive 45178817 Problem Major depressive disorder, recurrent episode, moderate 296 .32 Active 93327339 Problem Acute sinusitis, recurrence not specified, unspe cified location J01.90 Active 56698486 Problem Mild intermittent asthma with acute exacerbation J 45.21 Active [id number] ALLERGIES No Information ENCOUNTERS Encounter Location Date Diagnosis [facility] [id number] [place] [phone] Aug, [facility] [address] [facility] [id number] [address] [place] [phone] Aug, Mild intermittent asthma wit hout complication J45.20 [facility] [address] [facility] [id number] [address] [place] [phone] Jul, [facility] [address] [facility] [id number] [address] [place] [phone] Jul, [facility] [address] [facility] [id number] [address] [place] [phone] Jul, [facility] [address] [facility] [id number] [address] [place] [phone] Jul, Bronchitis J40 and Cough R05 [address] [id number] [address] May, Breast lump in female N63.0 [facility] [address] [facility] [address] [id number] [address] May, Breast lump in female N63.0 [facility] [address] [facility] [address] [id number] [address] Apr, Breast lump in female N63.0 [place] [address] [facility] [id number] [address] [place] [phone] Apr, [place] [address] [facility] [id number] [address] [place] [phone] Apr, Screening for breast cancer Z12.39 and Family history of breast cancer Z80.3 [place] [address] [place] [id number] [address] [place] [id number] Feb, Encounter for immunization Z 23 [place] [address] [facility] [id number] [address] [place] [phone] Dec, Mild intermittent asthma wit hout complication J45.20 [place] [address] [facility] [id number] [address] [place] [phone] Jul, [place] [address] [place] [id number] [place] [phone] Jul, Mild intermittent asthma wit hout complication J45.20 ; Pneumonitis J18.9 and Generalized anxiety disorder F41.1 [facility] [address] [facility] [id number] [address] [place] [phone] Jun, Mild intermittent asthma wit h acute exacerbation J45.21 and Wheezing R06.2 [facility] N [facility] [id number] [address] [place] [phone] Apr, Wheezing R06.2 and Acute ana opharyngitis J00 [facility] [place] [address] [facility] [id number] [address] [place] [phone] September, Muscle strain of right upper back, initial encounter S29.012A [facility] N [facility] [id number] [address] [place] [phone] 12 Jun, 2016 Encounter for immunization Z 23 [facility] [address] [id number] [address] [place] [phone] Dec, [facility] [address] [id number] [address] [place] [phone] Dec, Acute sinusitis, recurrence not specified, unspecified location J01.90 and Upper respiratory tract infection, unspecified type J06.9 [facility] [address] [id number] [address] [place] [phone] Oct, Upper respiratory tract infe ction, unspecified type J06.9 [facility] [address] [id number] [address] [place] [phone] Jul, [facility] [address] [id number] [address] [place] [phone] Jul, [facility] [address] [id number] [address] [place] [phone] Jun, [facility] [address] [id number] [address] [place] [phone] Jun, [facility] [address] [id number] [address] [place] [phone] May, [facility] [address] [id number] [address] [place] [phone] May, [facility] [address] [id number] [address] [place] [phone] Apr, [facility] [address] [id number] [address] [place] [phone] Apr, [facility] [address] [id number] [address] [place] [phone] Apr, [facility] [address] [id number] [address] [place] [phone] Apr, IMMUNIZATIONS No Known Immunizations SOCIAL HISTORY Never Assessed REASON FOR VISIT PLAN OF CARE VITAL SIGNS MEDICATIONS Unknown Medications RESULTS No Results PROCEDURES Procedure Date Ordered Result Body Site PSYCH DIAGNOSTIC EVALUATION Apr 26, 2014 INSTRUCTIONS MEDICATIONS ADMINISTERED No Known Medications MEDICAL [...]
[2019-10-06] MEDS ORDERED: NS IV 1000 ML 1,000 ML IV ONE (08:19)
[2019-10-06 08:40] LABS: BILIRUBIN,URINE NEGATIVE (NEGATIVE); CLARITY,URINE CLEAR; COLOR,URINE YELLOW; GLUCOSE, URINE (UA) NEGATIVE (NEGATIVE); KETONES,URINE NEGATIVE (NEGATIVE); LEUKOCYTE ESTERASE ,URINE 3+ (NEGATIVE); NITRITE,URINE POSITIVE (NEGATIVE); PROTEIN,URINE 2+ (NEGATIVE)
[2019-10-06 08:50] LABS: RBC,URINE 25-50 /HPF; WBC,URINE >100 /HPF
[2019-10-06 08:51] LABS: BACTERIA,URINE MODERATE /HPF; SQUAMOUS EPITHELIAL CELL,UR 0-2 /HPF
[2019-10-06 09:10] LABS: BASOPHILS % (AUTO) 0 % (0-10); EOSINOPHILS # (AUTO) 0.1 10^3/uL (0.0-0.3); EOSINOPHILS % (AUTO) 0 % (0-10); HEMATOCRIT 43 % (35-52); HEMOGLOBIN 14.1 G/DL (11.5-16.0); LYMPHOCYTES # (AUTO) 3.6 X 10^3 (1.0-4.0); LYMPHOCYTES % (AUTO) 20 % (12-44); MEAN CORPUSCULAR HEMOGLOBIN 28 PG (25-34); MEAN CORPUSCULAR HGB CONC 33 G/DL (32-36); MEAN CORPUSCULAR VOLUME 84 FL (80-99); MEAN PLATELET VOLUME 9.1 FL (7.4-10.4); MONOCYTES # (AUTO) 1.5 X 10^3 (0.0-1.0); MONOCYTES % (AUTO) 8 % (0-12); NEUTROPHILS % (AUTO) 71 % (42-75); PLATELET COUNT 496 10^3/uL (130-400); RED CELL DISTRIBUTION WIDTH 14.8 % (10.0-14.5); WHITE BLOOD COUNT 18.2 10^3/uL (4.3-11.0)
[2019-10-06 09:14] LABS: CHLORIDE 106 MMOL/L (98-107); POTASSIUM 3.1 MMOL/L (3.6-5.0); SODIUM 140 MMOL/L (135-145)
[2019-10-06 09:15] LABS: CALCIUM 8.8 MG/DL (8.5-10.1)
[2019-10-06 09:16] LABS: GLUCOSE 96 MG/DL (70-105)
[2019-10-06 09:17] LABS: TOTAL PROTEIN 7.3 GM/DL (6.4-8.2)
[2019-10-06 09:18] LABS: BILIRUBIN,TOTAL 0.3 MG/DL (0.1-1.0); CARBON DIOXIDE 22 MMOL/L (21-32)
[2019-10-06 09:20] LABS: ALKALINE PHOSPHATASE 57 U/L (40-136); CREATININE SERUM 0.75 MG/DL (0.60-1.30); GFR ESTIMATED > 60
[2019-10-06 09:21] LABS: BUN/CREATININE RATIO 20
[2019-10-06 09:23] LABS: ALANINE AMINOTRANSFERASE 15 U/L (0-55); LIPASE 54 U/L (8-78)
[2019-10-06] MEDS ORDERED: cefTRIAXone FOR IV USE 1,000 MG in WATER (STERILE) FOR INJECTION 10 ML IV ONE (09:30)
[2019-10-06] MEDS ORDERED: fentaNYL INJECTION 100 MCG/2 ML AMP IVP ONE (09:45)
[2019-10-06] MEDS ORDERED: RX-ALBUTEROL INHALER (PROAIR) 8.5 GM IH ONE (10:05)
[2019-10-06] MEDS ORDERED: RT-ALBUTEROL INHALER HFA (VENTOLIN HFA) 8 GM IH PRN (10:15)
--- NOTE | 2019-10-06 12:06 | Diagnostic Imaging Report ---
PROCEDURE: CT urinary tract, rule out kidney stone. TECHNIQUE: Multiple contiguous axial images were obtained through the abdomen and pelvis without the use of intravenous contrast. Auto Exposure Controls were utilized during the CT exam to meet ALARA standards for radiation dose reduction. INDICATION: Right lower quadrant pain. FINDINGS: There is calcification upper pole calyx of the right kidney measuring approximately 7 x 3 mm. No hydronephrosis. Renal outlines are smooth. There is mild the edema of the perinephric tissues about the inferior portion of the right kidney extending around the renal pelvis as well. This does extend along the ureters to the upper pelvis bilaterally. The ureters are not dilated. No ureteral calculi are seen. The bladder is empty. No evidence of bladder stones. There are no pelvic masses. Uterus is not enlarged. There is no intra-abdominal adenopathy pathologic size. Bowel gas pattern appears normal. There is no evidence of constipation. No changes to suggest diverticulitis or inflammatory bowel changes. The appendix is not dilated. No appendicoliths. There is no free air or free fluid. No blastic or lytic bony changes. The cervical spine shows good alignment. IMPRESSION: 1. No evidence of obstructive uropathy. 2. There is mild the perinephric edema along the inferior portion the right kidney as well as extending about both ureters and the retroperitoneal space to the mid pelvis. No calculi demonstrated. With additional history of the elevated white count and abnormal UA these findings are most likely post the inflammatory consistent with pyelonephritis. These findings were discussed with Dr. Zayas. Dictated by: Dictated on workstation # [id number]
[2019-10-06] MEDS ORDERED: CEFD300C3 PO (12:11)
--- NOTE | 2019-10-06 12:11 | ED Abdominal Pain ---
General Chief Complaint: Abdominal/GI Problems Stated Complaint: ABD PAIN Nursing Triage Note: PT AMB TO RM 3 WITH COMPLAINT OF SHARP STABBING PAIN IN MID ABDOMEN THAT STARTED @ 2200 LAST NIGHT. STATES STARTS IN RLQ AND RADIATES TO BACK Sepsis Screen: No Definite Risk Source of Information: Patient Exam Limitations: No Limitations History of Present Illness Date Seen by Provider: October 06, 2019 Time Seen by Provider: 07:07 Initial Comments This 46-year-old woman presents to the emergency room with complaints of periumbilical abdominal pain that radiates down to the right lower quadrant that started around 22:00 last night. She had a small amount of diarrhea. Nausea but no vomiting. It does hurt to walk and ride in the car. LMP was last week. She also complains of urinary frequency and dysuria. Her primary care provider is Wily Minor at [facility]. Allergies and Home Medications Allergies Coded Allergies: No Known Drug Allergies (Unverified , 07/13/18) Home Medications Albuterol Sulfate 6.7 Gm Hfa.aer.ad, 2 PUFF INH Q6H, (Reported) Benzonatate 100 Mg Capsule, 100 MG PO TID PRN for cough Prescribed by: MARK SANTOS on 07/24/19 1139 Cefdinir 300 Mg Capsule, 300 MG PO BID Prescribed by: THIAGO LORENZ on 10/06/19 1211 Fexofenadine HCl 180 Mg Tablet, 180 MG PO DAILY PRN for ALLERGY SYMPTOMS, (Reported) Fluticasone/Salmeterol 12 Gm Hfa.aer.ad, 2 PUFF IH BID@08,20 Prescribed by: MARK SANTOS on 07/24/19 0950 Montelukast Sodium 10 Mg Tablet, 10 MG PO HS Prescribed by: MARK SANTOS on 07/24/19 0950 Prednisone 10 Mg Tab.ds.pk, 10 MG PO DAILY Take 6 tabs(60mg)daily,decrease by 1 tab(10mg)every other day. Prescribed by: MARK SANTOS on 07/24/19 0950 Patient Home Medication List Home Medication List Reviewed: Yes Review of Systems Review of Systems Constitutional: no symptoms reported EENTM: No Symptoms Reported Respiratory: No Symptoms Reported Cardiovascular: No Symptoms Reported Gastrointestinal: See HPI Genitourinary: See HPI Musculoskeletal: no symptoms reported Skin: no symptoms reported Psychiatric/Neurological: No Symptoms Reported Endocrine: No Symptoms Reported Hematologic/Lymphatic: No Symptoms Reported Past Hzvamzg-Hmydly-Yeppca Hx Past Med/Social Hx: Reviewed and Corrections made Patient Social History Alcohol Use: Denies Use Recreational Drug Use: No Smoking Status: Former Smoker Type Used: Cigarettes Recent Foreign Travel: No Contact w/Someone Who Travel: No Recent Infectious Disease Expo: No Recent Hopitalizations: No Immunizations Up To Date Tetanus Booster (TDap): Unknown Date of Influenza Vaccine: Feb 10, 2019 Seasonal Allergies Seasonal Allergies: No Past Medical History Surgeries: Yes Tubal Ligation Respiratory: Yes Asthma Cardiac: No Neurological: No Last Menstrual Period: September 29, 2019 Reproductive Disorders: 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 3.0oz. 95.377564ru; 29.00 BMI Method:Stated General Appearance: WD/WN, mild distress HEENT: PERRL/EOMI, normal ENT inspection Neck: normal inspection Respiratory: lungs clear, normal breath sounds, no respiratory distress Cardiovascular: regular rate, rhythm, no edema, no murmur Gastrointestinal: normal bowel sounds, soft, distended, tenderness (periumbilical and right lower quadrant), other (positive iliopsoas. Positive udbl-on-fmvkg Rovsing) Extremities: normal inspection, no pedal edema Neurologic/Psychiatric: hide inspector II-XII nml as tested, no motor/sensory deficits, alert, normal mood/affect, oriented x 3 Skin: normal color, warm/dry Focused Exam Lactate Level 10/06/19 09:39: Lactic Acid Level 1.64 Lactic Acid Level Laboratory Tests Test 10/06/19 09:39 Lactic Acid Level 1.64 MMOL/L (0.50-2.00) Procedures/Interventions Date of ETT Placement: Jul 13, 2018 Time of ETT Placement: 1937 Progress/Results/Core Measures Results/Orders Lab Results Laboratory Tests Test 10/06/19 08:27 10/06/19 08:52 10/06/19 09:39 Range/Units Urine Color YELLOW Urine Clarity CLEAR Urine pH 6.0 5-9 Urine Specific Mason 1.025 H 1.016-1.022 Urine Protein 2+ H NEGATIVE Urine Glucose (UA) NEGATIVE NEGATIVE Urine Ketones NEGATIVE NEGATIVE Urine Nitrite POSITIVE H NEGATIVE Urine Bilirubin NEGATIVE NEGATIVE Urine Urobilinogen 0.2 < = 1.0 MG/DL Urine Leukocyte Esterase 3+ H NEGATIVE Urine RBC (Auto) 3+ H NEGATIVE Urine RBC 25-50 H /HPF Urine WBC >100 H /HPF Urine Squamous Epithelial Cells 0-2 /HPF Urine Crystals NONE /LPF Urine Bacteria MODERATE H /HPF Urine Casts NONE /LPF Urine Mucus NEGATIVE /LPF Urine Culture Indicated YES White Blood Count 18.2 H 4.3-11.0 10^3/uL Red Blood Count 5.07 4.35-5.85 10^6/uL Hemoglobin 14.1 11.5-16.0 G/DL Hematocrit 43 35-52 % Mean Corpuscular Volume 84 80-99 FL Mean Corpuscular Hemoglobin 28 25-34 PG Mean Corpuscular Hemoglobin Concent 33 32-36 G/DL Red Cell Distribution Width 14.8 H 10.0-14.5 % Platelet Count 496 H 130-400 10^3/uL Mean Platelet Volume 9.1 7.4-10.4 FL Neutrophils (%) (Auto) 71 42-75 % Lymphocytes (%) (Auto) 20 12-44 % Monocytes (%) (Auto) 8 0-12 % Eosinophils (%) (Auto) 0 0-10 % Basophils (%) (Auto) 0 0-10 % Neutrophils # (Auto) 13.0 H 1.8-7.8 X 10^3 Lymphocytes # (Auto) 3.6 1.0-4.0 X 10^3 Monocytes # (Auto) 1.5 H 0.0-1.0 X 10^3 Eosinophils # (Auto) 0.1 0.0-0.3 10^3/uL Basophils # (Auto) 0.0 0.0-0.1 10^3/uL Sodium Level 140 135-145 MMOL/L Potassium Level 3.1 L 3.6-5.0 MMOL/L Chloride Level 106 98-107 MMOL/L Carbon Dioxide Level 22 21-32 MMOL/L Anion Gap 12 5-14 MMOL/L Blood Urea Nitrogen 15 7-18 MG/DL Creatinine 0.75 0.60-1.30 MG/DL Estimat Glomerular Filtration Rate > 60 BUN/Creatinine Ratio 20 Glucose Level 96 70-105 MG/DL Calcium Level 8.8 8.5-10.1 MG/DL Corrected Calcium 8.8 8.5-10.1 MG/DL Total Bilirubin 0.3 0.1-1.0 MG/DL Aspartate Amino Transf (AST/SGOT) 13 5-34 U/L Alanine Aminotransferase (ALT/SGPT) 15 0-55 U/L Alkaline Phosphatase 57 40-136 U/L C-Reactive Protein High Sensitivity 0.88 H 0.00-0.50 MG/DL Total Protein 7.3 6.4-8.2 GM/DL Albumin 4.0 3.2-4.5 GM/DL Lipase 54 8-78 U/L Serum Test, Qualitative NEGATIVE NEGATIVE Lactic Acid Level 1.64 0.50-2.00 MMOL/L My Orders Orders - THIAGO ROPER MD Ua Culture If Indicated (10/06/19 07:07) Cbc With Automated Diff (10/06/19 08:19) Comprehensive Metabolic Panel (10/06/19 08:19) Hs C Reactive Protein (10/06/19 08:19) Hcg,Qualitative Serum (10/06/19 08:19) Ed Iv/Invasive Line Start (10/06/19 08:19) Ns Iv 1000 Ml (Sodium Chloride 0.9%) (10/06/19 08:19) Lipase (10/06/19 08:36) Urine Culture (10/06/19 08:27) Ct Abd/Pelvis Wo(Kidney Stone) (10/06/19 09:26) Blood Culture (10/06/19 09:27) Lactic Acid Analyzer (10/06/19 09:27) Ceftriaxone For Iv Use (Rocephin For I (10/06/19 09:30) Fentanyl Injection (Sublimaze Injection (10/06/19 09:45) Albuterol Inhaler (Ventolin Hfa) (10/06/19 10:15) Rx-Albuterol Inhaler (Rx-Proair) (10/06/19 10:05) Ketorolac Injection (Toradol Injection) (10/06/19 12:15) Medications Given in ED Current Medications Medications Dose Ordered Sig/James Route Start Time Stop Time Status Last Admin Dose Admin Albuterol Sulfate 2 PUFFS RTQ4HR PRN IH 10/06/19 10:15 10/06/19 12:38 DC 10/06/19 10:52 8 GM Ceftriaxone Sodium 1000 mg/ Sterile Water 10 ml @ 200 mls/hr ONCE ONCE IV 10/06/19 09:30 10/06/19 09:32 DC 10/06/19 09:45 200 MLS/HR Fentanyl Citrate 50 mcg ONCE ONCE IVP 10/06/19 09:45 10/06/19 09:46 DC 10/06/19 09:45 50 MCG Ketorolac Tromethamine 15 mg ONCE ONCE IVP 10/06/19 12:15 10/06/19 12:16 DC 10/06/19 12:35 15 MG Sodium Chloride 1,000 ml @ 0 mls/hr Q0M ONCE IV 10/06/19 08:19 10/06/19 08:20 DC 10/06/19 08:54 0 MLS/HR Vital Signs/I&O 10/06/19 10/06/19 07:57 12:38 Temp 36.6 Pulse 92 84 Resp 20 20 B/P (MAP) 166/121 (136) 157/105 Pulse Ox 98 99 O2 Delivery Room Air Room Air Blood Pressure Mean: 136 Progress Progress Note : Progress Note Patient was seen and examined. IV was established and labs were obtained. Patient is found to have leukocytosis which is likely from recent steroid use as her CRP is unremarkable. CT was obtained to rule out ureteral stone with associated infection or appendicitis because of the right lower quadrant pain. CT demonstrated some. Effort stranding but no evidence of appendicitis or ure teral stone. Patient was treated with fentanyl and Rocephin. Toradol was later given prior to discharge. She was advised to treat her hypokalemia with a high potassium diet. She was feeling much improved after treatment. Patient began to have difficulty with her breathing, coughing, and wheezing. She was given an albuterol inhaler as hers was left at home. Departure Impression Primary Impression: Pyelonephritis Additional Impressions: Hypokalemia Asthma exacerbation Qualified Codes: J45.901 - Unspecified asthma with (acute) exacerbation Disposition: 01 HOME, SELF-CARE Condition: Improved Departure-Patient Inst. Decision time for Depature: 12:09 Referrals: NO,LOCAL PHYSICIAN (PCP/Family) Primary Care Physician Patient Instructions: Kidney Infection Add. Discharge Instructions: Drink plenty of clear liquids. Start your antibiotic by tomorrow morning and complete the entire course as prescribed. Follow-up with your primary care provider by or Saturday to review urine culture results. This will help ensure the antibiotic you are taking is appropriate for this infection you have. You may take Tylenol (acetaminophen) up to 1000 mg every 6 hours as needed and/or ibuprofen up to 600 mg every 6 hours as needed for pain. Consume a high potassium diet for the next few days. Return to care if you have worsening symptoms or develop new symptoms such as vomiting or fever. All discharge instructions reviewed with patient and/or family. Voiced understanding. Scripts Cefdinir (Cefdinir) 300 Mg Capsule 300 MG PO BID, #14 CAP Prov: THIAGO ROPER MD 10/06/19 Copy Copies To 1: HOANG BLAKE JOSHUA T MD October 06, 2019 12:11
[2019-10-06] MEDS ORDERED: KETOROLAC 30 MG/ML VIAL IVP ONE (12:15)
[2019-10-06 12:38] VITALS: BP 157/105
== END 2019-10-06 12:38 | disposition home or self-care (01) ==
LOC: EDUNIT# 07:01 → ER 07:02
DX: N12 Tubulo-interstitial nephritis, not specified as acute or chronic (principal); E87.6 Hypokalemia; J45.901 Unspecified asthma with (acute) exacerbation; Z79.51 Long term (current) use of inhaled steroids; Z79.52 Long term (current) use of systemic steroids; Z87.891 Personal history of nicotine dependence
CPT/HCPCS: 36415; 74176; 80053; 81000; 83605; 83690; 84703; 85025; 86141; 87040; 87077; 87088; 87186; 96361; 96374; 96375

== ENCOUNTER → 2019-10-23 | Outpatient (CLI) | payer MEDICAID ==
[~2019-10-23] MED LIST changes: +CEFD300C3 PO
[2019-10-23 08:06] LABS: CREATININE SERUM 0.78 MG/DL (0.60-1.30); GFR ESTIMATED > 60
[2019-10-23 08:07] LABS: BUN/CREATININE RATIO 13
== END ==
LOC: RT 07:38
PROVIDERS: ATTEND Nurse Practitioner Family
DX: J45.909 Unspecified asthma, uncomplicated (principal); R91.8 Other nonspecific abnormal finding of lung field; J98.4 Other disorders of lung; F17.211 Nicotine dependence, cigarettes, in remission
CPT/HCPCS: 36415; 82565; 84520

== ENCOUNTER → 2019-12-08 | Outpatient (CLI) | payer MEDICAID ==
[~2019-12-08] MED LIST changes: +RT-ALBUTEROL SULF 2.5 MG/3 ML PRE-MIX VIAL INH ONE
== END ==
LOC: RT 07:52
PROVIDERS: ATTEND Nurse Practitioner Family
DX: J45.909 Unspecified asthma, uncomplicated (principal); J98.4 Other disorders of lung; F17.211 Nicotine dependence, cigarettes, in remission
CPT/HCPCS: 94060; 94726; 94729

== ENCOUNTER → 2019-12-18 | Outpatient (CLI) | payer MEDICAID ==
[~2019-12-18] MED LIST changes: +HOLD METFORMIN - RECEIVED CONTRAST 20 ML VIAL IV SCH; +IOHEXOL 350 MG/ML 100 ML (OMNIPAQUE 350) VIAL IV ONE; +NS 100 ML (IVPB) BAG IV ONE; -RT-ALBUTEROL SULF 2.5 MG/3 ML PRE-MIX VIAL INH ONE
--- NOTE | 2019-12-18 09:41 | Diagnostic Imaging Report ---
PROCEDURE: CT chest with contrast only. TECHNIQUE: Multiple contiguous axial images were obtained through the chest after administration of intravenous contrast. Auto Exposure Controls were utilized during the CT exam to meet ALARA standards for radiation dose reduction. INDICATION: Asthma, disorder of the lung. COMPARISON: 10/01/2018 FINDINGS: No significant adenopathy within the chest. No aneurysmal dilatation of the thoracic aorta. The heart is within normal limits in size. No pericardial effusion. No pleural effusion. No pneumothorax. A few sub-6 mm bilateral pulmonary nodules are again identified and able from the prior examination without new pulmonary nodule or opacity. A 1.0 x 0.2 cm pleural-based right lower lobe pulmonary nodule is again identified, appearing less prominent than the prior examination felt to be benign. Visualized upper abdomen is unremarkable. No acute osseous abnormality. IMPRESSION: No acute abnormality. Stable sub-6 mm bilateral pulmonary nodules. No new pulmonary nodules. Dictated by: Dictated on workstation # [id number]
== END ==
LOC: RAD 08:42
PROVIDERS: ATTEND Nurse Practitioner Family
DX: J45.909 Unspecified asthma, uncomplicated (principal); J98.4 Other disorders of lung; R91.8 Other nonspecific abnormal finding of lung field; F17.211 Nicotine dependence, cigarettes, in remission
CPT/HCPCS: 71260

== ENCOUNTER → 2020-07-04 | Outpatient (CLI) | payer MEDICAID ==
[~2020-07-04] MED LIST changes: +CATHETER FLUSH 10 ML SYR IV PRN; -MONT10TA26 PO; +MONT10TA32 PO
--- NOTE | 2020-07-04 09:18 | Diagnostic Imaging Report ---
EXAMINATION: CT Chest with intravenous contrast. TECHNIQUE: Multiple contiguous axial images were obtained through the chest after the uneventful administration of intravenous contrast. All CT scans use one or more of the following dose optimizing techniques: automated exposure control, MA and/or KvP adjustment based on a patient size and exam type, or iterative reconstruction. HISTORY: Lung abnormality. COMPARISON: 12/18/2019. FINDINGS: There is no edema or pneumonia. No pleural effusion. No pneumothorax. No suspicious nodules. There is a stable small fissural nodule in the left lung, consistent with an intrapulmonary lymph node. A few tiny 2 to 3 mm nodules are unchanged. There is no axillary or supraclavicular lymphadenopathy. There is no mediastinal lymphadenopathy. Heart size is normal. There are no coronary artery calcifications. No pericardial effusion. Aorta is normal in caliber. Limited views of the upper abdomen are unremarkable. There are no suspicious osseus lesions. IMPRESSION: Clear lungs, no suspicious nodules. Dictated by: Dictated on workstation # [id number]
== END ==
LOC: RAD 08:29
PROVIDERS: ATTEND Nurse Practitioner Family
DX: R91.8 Other nonspecific abnormal finding of lung field (principal)
CPT/HCPCS: 71260

== ENCOUNTER → 2020-08-31 | Outpatient (CLI) | payer MEDICAID ==
[~2020-08-31] MED LIST changes: -CATHETER FLUSH 10 ML SYR IV PRN; -HOLD METFORMIN - RECEIVED CONTRAST 20 ML VIAL IV SCH; -IOHEXOL 350 MG/ML 100 ML (OMNIPAQUE 350) VIAL IV ONE; -NS 100 ML (IVPB) BAG IV ONE
--- NOTE | 2020-08-31 17:39 | Diagnostic Imaging Report ---
INDICATION: Chronic lung disease. EXAMINATION: PA and lateral views of the chest were obtained at 12:57 p.m. COMPARISON: 07/24/2019. FINDINGS: Heart and mediastinal silhouette are normal in appearance. Lungs appear clear. There is no pneumothorax or pleural fluid. IMPRESSION: No acute process in the chest. Dictated by: Dictated on workstation # [id number]
== END ==
LOC: RAD 12:40
PROVIDERS: ATTEND Nurse Practitioner Family
DX: J44.9 Chronic obstructive pulmonary disease, unspecified (principal)
CPT/HCPCS: 71046

== ENCOUNTER 2021-07-30 16:57 | Emergency (ER) | payer MEDICAID ==
[~2021-07-30] VITALS: Ht 170.2 cm; Wt 88.5 kg
[~2021-07-30 16:57] MED LIST changes: +DOXY-311 PO; -DOXY100C42 PO; +MONT-40 PO; -MONT10TA32 PO
[2021-07-30 17:54] LABS: BASOPHILS # (AUTO) 0.1 10^3/uL (0.0-0.1); BASOPHILS % (AUTO) 0 % (0-10); EOSINOPHILS # (AUTO) 0.2 10^3/uL (0.0-0.3); EOSINOPHILS % (AUTO) 2 % (0-10); HEMATOCRIT 44 % (35-52); HEMOGLOBIN 13.9 g/dL (11.5-16.0); LYMPHOCYTES # (AUTO) 2.9 10^3/uL (1.0-4.0); LYMPHOCYTES % (AUTO) 23 % (12-44); MEAN CORPUSCULAR HEMOGLOBIN 26 pg (25-34); MEAN CORPUSCULAR HGB CONC 32 g/dL (32-36); MEAN CORPUSCULAR VOLUME 82 fL (80-99); MEAN PLATELET VOLUME 9.2 fL (9.0-12.2); MONOCYTES # (AUTO) 0.6 10^3/uL (0.0-1.0); MONOCYTES % (AUTO) 5 % (0-12); NEUTROPHILS # (AUTO) 8.5 10^3/uL (1.8-7.8); NEUTROPHILS % (AUTO) 70 % (42-75); PLATELET COUNT 580 10^3/uL (130-400); WHITE BLOOD COUNT 12.2 10^3/uL (4.3-11.0)
[2021-07-30 17:59] LABS: CHLORIDE 103 MMOL/L (98-107); POTASSIUM 3.3 MMOL/L (3.6-5.0); SODIUM 139 MMOL/L (135-145)
[2021-07-30 18:00] LABS: GLUCOSE 96 MG/DL (70-105)
--- NOTE | 2021-07-30 18:00 | Diagnostic Imaging Report ---
EXAMINATION: Chest 1 view. HISTORY: Palpitations and shortness of breath. COMPARISON: 07/24/2019. FINDINGS: The lungs are clear without edema or pneumonia. No pleural effusion or pneumothorax. Heart size is normal. IMPRESSION: Clear lungs. Dictated by: Dictated on workstation # [id number]
[2021-07-30 18:02] LABS: CARBON DIOXIDE 20 MMOL/L (21-32)
[2021-07-30 18:04] LABS: CREATININE SERUM 0.93 MG/DL (0.60-1.30); GFR ESTIMATED 77
[2021-07-30 18:05] LABS: BUN/CREATININE RATIO 15
--- NOTE | 2021-07-30 18:18 | ED Chest Pain ---
General Chief Complaint: Cardiac/General Problems Stated Complaint: ELEV HR/SOB/AGARWAL Nursing Triage Note: PT AMB TO RM 10 W C/O FEELING LIKE HER HEART IS RACING SX 1300 WHEN DOING YARD WORK, AND A BRIEF EPISODE OF SOA, LIGHTHEADEDNESS, AND NAUSEA. PT DENIES CP. PT REPORTS EXPERIENCING HEART RACING RIGHT NOW, DENIES ALL OTHER SYMPTOMS. PT REPORTS HE HAD COVID APPROX 1 MONTH AGO AND WAS ADVISED TO FOLLOW UP FOR HTN MEDS WHEN SHE WAS OUT OF QUARANTINE BUT SHE HASNT SEEN A DR FOR HTN YET. PT A&OX4, DENIES PAIN. Source: patient Exam Limitations: no limitations (DIRK HEIN MD) History of Present Illness Date Seen by Provider: Jul 30, 2021 Time Seen by Provider: 17:40 Initial Comments Patient is a 46-year-old female who presents to the emergency room today with a chief complaint of midsternal chest pressure, dizziness, nausea, feeling "crummy" off and on for the last 2 days. She also endorses accompanying shortness of breath. She feels like her heart is racing. Today she was working in the yard and had a recurrence of symptoms. This also happened she was cooking dinner this evening and she decided to come to the emergency room for evaluation. She has moderate headache with persistent shortness of breath. She had a little epigastric discomfort while cooking dinner that is now resolved. That pain seemed to radiate into her left lower quadrant. No associated diarrhea, black or bloody stools. She actually states at the time of my evaluation the chest discomfort has improved. No prior history of known coronary artery disease. She is a former smoker but smoked for approximately 20 years. No diagnosed hypertension. Has been diagnosed with COPD. Is not a diabetic. Status post tubal ligation. No family history in first-degree relatives of known coronary artery disease. No family history of clotting disorder. Patient recently got over COVID about 1 month ago. Patient did have prior intubation related to INfuenza in 2019. All other review of systems reviewed and negative except as stated. Timing/Duration: 1-3 hours Severity/Quality: moderate, pressure Location: substernal Radiation: no radiation Activities at Onset: activity Prior CP/Workup: no prior chest pain, no prior cardiac workup Modifying Factors: worse with breathing, worse with coughing ASA po LIBRARY MONITOR: No NTG SL LIBRARY MONITOR: No Associated Symptoms: abdominal pain (Epigastric), dizziness, fatigue, headache, nausea/vomiting, shortness of breath, weakness (Dizziness) (DIRK HEIN MD) Allergies and Home Medications Allergies Coded Allergies: No Known Drug Allergies (Unverified , 07/13/18) Patient Home Medication List Home Medication List Reviewed: Yes (DIRK HEIN MD) Albuterol Sulfate (Proventil Hfa) 6.7 Gm Hfa.aer.ad, 2 PUFF INH Q6H, (Reported) Entered as Reported by: GT BRUNO on 07/22/19 1202 Benzonatate (Tessalon Perles) 100 Mg Capsule, 100 MG PO TID PRN for cough Prescribed by: MARK SANTOS on 07/24/19 1139 Cefdinir (Cefdinir) 300 Mg Capsule, 300 MG PO BID Prescribed by: THIAGO LORENZ on 10/06/19 1211 Fexofenadine HCl (Rebeca Allergy) 180 Mg Tablet, 180 MG PO DAILY PRN for ALLERGY SYMPTOMS, (Reported) Entered as Reported by: GT BRUNO on 07/22/19 1202 Fluticasone/Salmeterol (Advair Hfa 115-21 Mcg Inhaler) 12 Gm Hfa.aer.ad, 2 PUFF IH BID@ Prescribed by: MARK SANTOS on 07/24/19 0950 Montelukast Sodium (Montelukast Sodium) 10 Mg Tablet, 10 MG PO HS Prescribed by: MARK SANTOS on 07/24/19 0950 Nitrofurantoin Monohyd/M-Cryst (Macrobid 100 mg Capsule) 100 Mg Capsule, 1 TAB PO BID Prescribed by: AKI BROOKE on 07/30/212019 Prednisone (Prednisone) 10 Mg Tab.ds.pk, 10 MG PO DAILY Prescribed by: MARK SANTOS on 07/24/19 0950 Review of Systems Review of Systems Constitutional: see HPI, diaphoresis EENTM: No Symptoms Reported Respiratory: Shortness of Air, SOA With Exertion Cardiovascular: Chest Pain (Pressure midsternal), Palpitations Gastrointestinal: Nausea Genitourinary: No Symptoms Reported Musculoskeletal: no symptoms reported Skin: no symptoms reported (DIRK HEIN MD) All Other Systems Reviewed Negative Unless Noted: Yes (DIRK HEIN MD) Past Kqqpofz-Jjgppt-Wawiox Hx Patient Social History Tobacco Use?: No Smoking Status: Former Smoker Use of E-Cig and/or Vaping dev: No Substance use?: No Alcohol Use?: No (DIRK HEIN MD) Immunizations Up To Date Tetanus Booster (TDap): Unknown Influenza Vaccine Up-to-Date: Yes; Up-to-Date First/Initial COVID19 Vaccinat: 2020 Second COVID19 Vaccination Chuy: 2020 Third COVID19 Vaccination Date: 2020 COVID19 Vaccine Rn Med Surg: MODERNAndra (DIRK HEIN MD) Seasonal Allergies Seasonal Allergies: No (DIRK HEIN MD) Past Medical History Surgeries: Yes Tubal Ligation Respiratory: Yes Asthma Cardiac: No Neurological: No 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 3.0oz. 95.014497uf; 30.00 BMI Method:Stated General Appearance: No Apparent Distress, WD/WN HEENT: PERRL/EOMI, Pharynx Normal Neck: Normal Inspection, Non Tender, Supple Respiratory: Lungs Clear, Normal Breath Sounds, No Accessory Muscle Use, No Respiratory Distress Cardiovascular: Regular Rate, Rhythm, No Murmur, Normal Peripheral Pulses, Tachycardia (Heart rate 103) Gastrointestinal: Non Tender, Soft Extremity: Normal Capillary Refill, Normal Inspection, Normal Range of Motion, Non Tender, No Calf Tenderness, No Pedal Edema Neurologic/Psychiatric: Alert, Oriented x3, No Motor/Sensory Deficits, Normal Mood/Affect, micro lab analyst II-XII Norm as Tested Skin: Normal Color, Warm/Dry (DIRK HEIN MD) Procedures/Interventions Date of ETT Placement: Jul 13, 2018 Time of ETT Placement: 193 (DIRK HEIN MD) Progress/Results/Core Measures Results/Orders Lab Results Laboratory Tests Test 07/30/21 17:10 07/30/21 19:00 07/30/21 20:21 Range/Units White Blood Count 12.2 H 4.3-11.0 10^3/uL Red Blood Count 5.35 H 3.80-5.11 10^6/uL Hemoglobin 13.9 11.5-16.0 g/dL Hematocrit 44 35-52 % Mean Corpuscular Volume 82 80-99 fL Mean Corpuscular Hemoglobin 26 25-34 pg Mean Corpuscular Hemoglobin Concent 32 32-36 g/dL Red Cell Distribution Width 16.9 H 10.0-14.5 % Platelet Count 580 H 130-400 10^3/uL Mean Platelet Volume 9.2 9.0-12.2 fL Immature Granulocyte % (Auto) 0 % Neutrophils (%) (Auto) 70 42-75 % Lymphocytes (%) (Auto) 23 12-44 % Monocytes (%) (Auto) 5 0-12 % Eosinophils (%) (Auto) 2 0-10 % Basophils (%) (Auto) 0 0-10 % Neutrophils # (Auto) 8.5 H 1.8-7.8 10^3/uL Lymphocytes # (Auto) 2.9 1.0-4.0 10^3/uL Monocytes # (Auto) 0.6 0.0-1.0 10^3/uL Eosinophils # (Auto) 0.2 0.0-0.3 10^3/uL Basophils # (Auto) 0.1 0.0-0.1 10^3/uL Immature Granulocyte # (Auto) 0.0 0.0-0.1 10^3/uL D-Dimer 0.30 0.00-0.49 UG/ML Sodium Level 139 135-145 MMOL/L Potassium Level 3.3 L 3.6-5.0 MMOL/L Chloride Level 103 98-107 MMOL/L Carbon Dioxide Level 20 L 21-32 MMOL/L Anion Gap 16 H 5-14 MMOL/L Blood Urea Nitrogen 14 7-18 MG/DL Creatinine 0.93 0.60-1.30 MG/DL Estimat Glomerular Filtration Rate 77 BUN/Creatinine Ratio 15 Glucose Level 96 70-105 MG/DL Calcium Level 11.0 H 8.5-10.1 MG/DL Magnesium Level 1.9 1.6-2.4 MG/DL Total Bilirubin 0.2 0.1-1.0 MG/DL Direct Bilirubin 0.1 0.0-0.3 MG/DL Indirect Bilirubin 0.1 MG/DL Aspartate Amino Transf (AST/SGOT) 24 5-34 U/L Alanine Aminotransferase (ALT/SGPT) 30 0-55 U/L Alkaline Phosphatase 58 40-136 U/L Total Creatine Kinase 91 29-168 U/L Creatine Kinase MB 2.0 <6.6 NG/ML Myoglobin 42.4 10.0-92.0 NG/ML Troponin I < 0.028 < 0.028 <0.028 NG/ML B-Type Natriuretic Peptide 16.2 <100.0 PG/ML Total Protein 7.8 6.4-8.2 GM/DL Albumin 4.6 H 3.2-4.5 GM/DL TSH [place] Testing 1.29 0.35-4.94 UIU/ML Serum Test, Qualitative NEGATIVE NEGATIVE Urine Color YELLOW Urine Clarity CLEAR Urine pH 6.0 5-9 Urine Specific Anthony 1.020 1.016-1.022 Urine Protein TRACE H NEGATIVE Urine Glucose (UA) NEGATIVE NEGATIVE Urine Ketones 1+ H NEGATIVE Urine Nitrite POSITIVE H NEGATIVE Urine Bilirubin NEGATIVE NEGATIVE Urine Urobilinogen 0.2 < = 1.0 MG/DL Urine Leukocyte Esterase NEGATIVE NEGATIVE Urine RBC (Auto) NEGATIVE NEGATIVE Urine RBC NONE /HPF Urine WBC NONE /HPF Urine Crystals NONE /LPF Urine Bacteria MODERATE H /HPF Urine Casts NONE /LPF Urine Mucus NEGATIVE /LPF Urine Culture Indicated YES Urine Opiates Screen NEGATIVE NEGATIVE Urine Oxycodone Screen NEGATIVE NEGATIVE Urine Methadone Screen NEGATIVE NEGATIVE Urine Propoxyphene Screen NEGATIVE NEGATIVE Urine Barbiturates Screen NEGATIVE NEGATIVE Ur Tricyclic Antidepressants Screen NEGATIVE NEGATIVE Urine Phencyclidine Screen NEGATIVE NEGATIVE Urine Amphetamines Screen POSITIVE H NEGATIVE Urine Methamphetamines Screen POSITIVE H NEGATIVE Urine Benzodiazepines Screen NEGATIVE NEGATIVE Urine Cocaine Screen NEGATIVE NEGATIVE Urine Cannabinoids Screen NEGATIVE NEGATIVE (AKI BROOKE DO) My Orders Orders - AKI BROOKE DO Bnp Wale (07/30/21 18:25) Creatine Kinase (07/30/21 18:25) Creatine Kinase Mb (07/30/21 18:25) Magnesium (07/30/21 18:25) Myoglobin Serum (07/30/21 18:25) Ct Angio Chest W (07/30/21 18:25) Liver Panel (07/30/21 18:26) Drug Screen Stat (Urine) (07/30/21 18:29) Hcg,Qualitative Serum (07/30/21 18:29) Thyroid Analyzer (07/30/21 18:29) Ua Culture If Indicated (07/30/21 18:29) Iohexol Injection (Omnipaque 350 Mg/Ml 1 (07/30/21 18:45) Received Contrast (Hold Metformin- Contr (07/30/21 18:45) Ns (Ivpb) (Sodium Chloride 0.9% Ivpb Bag (07/30/21 18:45) Aspirin Chewable Tablet (Baby Aspirin Ch (07/30/21 19:18) Ondansetron Injection (Zofran Injectio (07/30/21 19:30) Urine Culture (07/30/21 19:00) Ekg Tracing (07/30/21 19:58) Troponin I [place] (07/30/21 19:58) (AKI BROOKE DO) Medications Given in ED Current Medications Medications Dose Ordered Sig/James Route Start Time Stop Time Status Last Admin Dose Admin Iohexol 100 ml ONCE ONCE IV 07/30/21 18:45 07/30/21 18:46 DC 07/30/21 18:54 77 ML Ondansetron HCl 4 mg ONCE ONCE IVP 07/30/21 19:30 07/30/21 19:31 DC 07/30/21 19:30 4 MG Sodium Chloride 100 ml ONCE ONCE IV 07/30/21 18:45 07/30/21 18:46 DC 07/30/21 18:54 80 ML (AKI BROOKE DO) Vital Signs/I&O 07/30/21 17:04 Temp 36.5 Pulse 108 Resp 24 B/P (MAP) 181/114 (136) Pulse Ox 99 O2 Delivery Room Air (AKI BROOKE DO) Blood Pressure Mean: 136 Progress Progress Note : Time: 18:17 Progress Note Care passed to Dr. Brooke at shift change with labs pending (DIRK HEIN MD) Progress Note : Progress Note 1800--ASSUMED CARE FROM DR. HEIN, ALL STUDIES PENDING AT THIS TIME. PT IS CURRENTLY ASYMPTOMATIC. PT WITH CONSTANT MOVEMENTS AND SPEAKS RAPIDLY AND SOMEWHAT MUMBLED. LMP--IN THE LAST MONTH, NORMAL. S/P BTL. 3 HOUR REPEAT TROPONIN AND EKG ARE NEGATIVE/UNCHANGED AND PT REMAINS ASYMPTOMATIC. VITALS STABLE (AKI BROOKE DO) Initial ECG Impression Date: Jul 30, 2021 Initial ECG Impression Time: 17:38 Initial ECG Rate: 96 Initial ECG Rhythm: Normal Sinus Initial ECG Intervals WA interval 179 QRS 101 QTc 444 Initial ECG Impression: Nonspecific Changes (Nonspecific ST-T wave changes over the precordium, no ST segment elevation or depression, no ectopy) (DIRK HEIN MD) EKG : EKG Time: 20:16 Rate: 81 Rhythm: Normal Sinus ECG Comparisson: Unchanged (AKI BROOKE DO) Diagnostic Imaging Diagonstic Imaging: Xray Plain Films/CT/US/NM/MRI: chest Comments [facility], [place] NAME: TIMI DELGADO [facility] REC#: [id number] PT STATUS: REG ER : 1975 PHYSICIAN: DIRK HEIN MD ADMIT DATE: 07/30/21/ER Draft Date of Exam:07/30/21 CHEST 1 VIEW, AP/PA ONLY EXAMINATION: Chest 1 view. HISTORY: Palpitations and shortness of breath. COMPARISON: 07/24/2019. FINDINGS: The lungs are clear without edema or pneumonia. No pleural effusion or pneumothorax. Heart size is normal. IMPRESSION: Clear lungs. Dictated on workstation # [id number] Dict: 07/30/[id number] Trans: 07/30/21 1800 PJE [id number] Interpreted by: VIMAL BRINK MD Electronically signed by: (DIRK HEIN MD) Comments CT CHEST ANGIOGRAM--PER RADIOLOGIST REPORT AT 1920 FINDINGS: There is no pulmonary embolism. There is no edema or pneumonia. No pleural effusion. No pneumothorax. No suspicious nodules. There is no axillary or supraclavicular lymphadenopathy. There is no mediastinal lymphadenopathy. Heart size is normal. There are no coronary artery calcifications. No pericardial effusion. Aorta is normal in caliber. Limited views of the upper abdomen are unremarkable. There are no suspicious osseus lesions. IMPRESSION: No pulmonary embolism, clear lungs. Reviewed: Reviewed by Me (AKI BROOKE DO) Departure Impression Primary Impression: Methamphetamine use Additional Impression: UTI (urinary tract infection) Disposition: 01 HOME, SELF-CARE Condition: Stable Departure-Patient Inst. Decision time for Depature: 20:57 (AKI BROOKE DO) Referrals: [facility] ([facility]P) Primary Care Physician CHEL DUDLEY (Family) Primary Care Physician Patient Instructions: Drug Abuse Treatment, Drug Abuse and Drug Addiction (DC), Methamphetamine, Urinary Tract Infection, Adult ED Add. Discharge Instructions: NO DRUGS NO STIMULANTS OR CAFFEINE FOLLOW UP WITH [facility] THIS WEEK FOR FURTHER CARE All discharge instructions reviewed with patient and/or family. Voiced understanding. Scripts Nitrofurantoin Monohyd/M-Cryst (Macrobid 100 mg Capsule) 100 Mg Capsule 1 TAB PO BID, #20 CAP Prov: AKI BROOKE DO 07/30/21 DIRK HEIN MD Jul 30, 2021 18:18 AKI BROOKE DO Jul 30, 2021 18:27
[2021-07-30 18:33] LABS: ALBUMIN 4.6 GM/DL (3.2-4.5)
[2021-07-30 18:36] LABS: TOTAL PROTEIN 7.8 GM/DL (6.4-8.2)
[2021-07-30 18:38] LABS: BILIRUBIN,TOTAL 0.2 MG/DL (0.1-1.0)
[2021-07-30 18:41] LABS: BILIRUBIN,DIRECT 0.1 MG/DL (0.0-0.3); BILIRUBIN,INDIRECT 0.1 MG/DL
[2021-07-30 18:42] LABS: MAGNESIUM 1.9 MG/DL (1.6-2.4)
[2021-07-30] MEDS ORDERED: NS 100 ML (IVPB) BAG IV ONE (18:45)
[2021-07-30] MEDS ORDERED: IOHEXOL 350 MG/ML 100 ML (OMNIPAQUE 350) VIAL IV ONE (18:45)
[2021-07-30] MEDS ORDERED: HOLD METFORMIN - RECEIVED CONTRAST 20 ML VIAL IV SCH (18:45)
--- NOTE | 2021-07-30 19:13 | Diagnostic Imaging Report ---
EXAMINATION: CT angiography of the chest. TECHNIQUE: Contrast enhanced thin section helical images were obtained through the chest with intravenous contrast timed for the optimal opacification of the arterial structures per CTA protocol. Post-processing, reconstructions and interpretation of angiographic images of the vessels was performed. 3D MIP reconstructions were performed and reviewed. All CT scans use one or more of the following dose optimizing techniques: automated exposure control, MA and/or KvP adjustment based on patient size and exam type or iterative reconstruction. HISTORY: Chest pain. COMPARISON: None available. FINDINGS: There is no pulmonary embolism. There is no edema or pneumonia. No pleural effusion. No pneumothorax. No suspicious nodules. There is no axillary or supraclavicular lymphadenopathy. There is no mediastinal lymphadenopathy. Heart size is normal. There are no coronary artery calcifications. No pericardial effusion. Aorta is normal in caliber. Limited views of the upper abdomen are unremarkable. There are no suspicious osseus lesions. IMPRESSION: No pulmonary embolism, clear lungs. Dictated by: Dictated on workstation # [id number]
[2021-07-30] MEDS ORDERED: ASPIRIN 81 MG CHEW (CHILDREN'S ASA) ONE (19:18)
[2021-07-30 19:19] LABS: BILIRUBIN,URINE NEGATIVE (NEGATIVE); CLARITY,URINE CLEAR; COLOR,URINE YELLOW; GLUCOSE, URINE (UA) NEGATIVE (NEGATIVE); KETONES,URINE 1+ (NEGATIVE); LEUKOCYTE ESTERASE ,URINE NEGATIVE (NEGATIVE); NITRITE,URINE POSITIVE (NEGATIVE); PROTEIN,URINE TRACE (NEGATIVE)
[2021-07-30] MEDS ORDERED: ONDANSETRON 4 MG/2 ML (SDV) Z0FRAN IVP ONE (19:30)
[2021-07-30 19:48] LABS: BACTERIA,URINE MODERATE /HPF
[2021-07-30 19:50] LABS: AMPHETAMINE SCREEN, URINE POSITIVE (NEGATIVE); BARBITURATE SCREEN URINE NEGATIVE (NEGATIVE); BENZODIAZEPINES SCREEN URINE NEGATIVE (NEGATIVE); CANNABINOID SCREEN, URINE NEGATIVE (NEGATIVE); COCAINE SCREEN URINE NEGATIVE (NEGATIVE); METHADONE STAT NEGATIVE (NEGATIVE); METHAMPHETAMINE SCREEN URINE S POSITIVE (NEGATIVE); OPIATE SCREEN URINE NEGATIVE (NEGATIVE); OXYCODONE STAT NEGATIVE (NEGATIVE); PROPOXYPHENE STAT NEGATIVE (NEGATIVE); TRICYCLIC ANTIDEPRESSANTS SCRE NEGATIVE (NEGATIVE)
[2021-07-30] MEDS ORDERED: NITR-65 PO (20:20)
[2021-07-30 21:07] VITALS: BP 163/101
[2021-07-31] MEDS ORDERED: ASPIRIN 81 MG CHEW (CHILDREN'S ASA) PO SCH (09:00)
== END 2021-07-30 21:07 | disposition home or self-care (01) ==
LOC: EDUNIT# 16:57 → ER 16:58
DX: F15.90 Other stimulant use, unspecified, uncomplicated (principal); N39.0 Urinary tract infection, site not specified; R00.0 Tachycardia, unspecified; Z87.891 Personal history of nicotine dependence; Z86.16 Personal history of COVID-19
CPT/HCPCS: 36415; 71045; 71275; 80048; 80076; 80306; 81000; 82550; 82553; 83735; 83874; 83880; 84443; 84484; 84703; 85025; 85379; 87077; 87088; 87186; 93005

== ENCOUNTER 2021-09-21 03:20 | Emergency (ER) | payer MEDICAID, OTHER ==
[~2021-09-21] VITALS: Ht 170.1 cm; Wt 88.3 kg
[~2021-09-21 03:20] MED LIST changes: +NITR-65 PO
[2021-09-21] MEDS ORDERED: PRED10TA22 PO (03:40)
--- NOTE | 2021-09-21 03:40 | ED Respiratory ---
General Chief Complaint: Respiratory Problems Stated Complaint: SOB Source: patient Exam Limitations: no limitations History of Present Illness Date Seen by Provider: September 21, 2021 Time Seen by Provider: 03:25 Initial Comments Patient is a 46-year-old female who presents to the emergency room with a chief complaint of feeling very short of breath and having a cough. She states that she has a history of similar symptoms in the past and has been hospitalized for shortness of breath last time in 2019 just before COVID. Patient is a former smoker she quit in 2018. She denies any chest pain, fevers, chills, earache sore throat. She has had a little runny nose. One of her children has had cold symptoms over the course of the last week. She feels like her shortness of breath has been evolving over the last week. She did use her inhaler last night and went to bed but woke up with the symptoms. She did do a home COVID test yesterday that she states was negative. She is fully vaccinated with booster. No abdominal pain, nausea, vomiting diarrhea. She just finished her menstrual cycle. No other complaints of illness. Does not take medications for anything on a daily basis. No history of blood clot. All other review of systems reviewed and negative except as stated Timing/Duration: week, getting worse Severity: moderate Prior Episodes/Possible Cause: occasional episodes Modifying Factors: Improves With Albuterol Inhaler Associated Symptoms: cough, nasal drainage (slight), shortness of breath Allergies and Home Medications Allergies Coded Allergies: No Known Drug Allergies (Unverified , 07/13/18) Patient Home Medication List Home Medication List Reviewed: Yes Albuterol Sulfate (Proventil Hfa) 6.7 Gm Hfa.aer.ad, 2 PUFF INH Q6H, (Reported) Entered as Reported by: GT BRUNO on 07/22/19 1202 Benzonatate (Tessalon Perles) 100 Mg Capsule, 100 MG PO TID PRN for cough Prescribed by: MARK SANTOS on 07/24/19 1139 Cefdinir (Cefdinir) 300 Mg Capsule, 300 MG PO BID Prescribed by: THIAGO LORENZ on 10/06/19 1211 Fexofenadine HCl (Rebeca Allergy) 180 Mg Tablet, 180 MG PO DAILY PRN for ALLERGY SYMPTOMS, (Reported) Entered as Reported by: GT BRUNO on 07/22/19 1202 Fluticasone/Salmeterol (Advair Hfa 115-21 Mcg Inhaler) 12 Gm Hfa.aer.ad, 2 PUFF IH BID@ Prescribed by: MARK SANTOS on 07/24/19 0950 Montelukast Sodium (Montelukast Sodium) 10 Mg Tablet, 10 MG PO HS Prescribed by: MARK SANTOS on 07/24/19 0950 Nitrofurantoin Monohyd/M-Cryst (Macrobid 100 mg Capsule) 100 Mg Capsule, 1 TAB PO BID Prescribed by: AKI CHISHOLM on 07/30/212019 Prednisone (Prednisone) 10 Mg Tab.ds.pk, 10 MG PO DAILY Prescribed by: MARK SANTOS on 07/24/19 0950 Prednisone (Prednisone) 10 Mg Tab.ds.pk, 10 MG PO DAILY Prescribed by: DIRK HEIN on 09/21/21 0340 Review of Systems Review of Systems Constitutional: see HPI EENTM: nose congestion (runny nose "allergies") Respiratory: cough, dyspnea on exertion, short of breath Cardiovascular: no symptoms reported Gastrointestinal: no symptoms reported Genitourinary: no symptoms reported : No LMP: September 18, 2021 Musculoskeletal: no symptoms reported Skin: no symptoms reported All Other Systems Reviewed Negative Unless Noted: Yes Past Qpsyhtd-Cnqxdv-Lqktrf Hx Immunizations Up To Date Tetanus Booster (TDap): Unknown First/Initial COVID19 Vaccinat: 2020 Second COVID19 Vaccination Chuy: 2020 Third COVID19 Vaccination Date: 2020 Seasonal Allergies Seasonal Allergies: No Past Medical History Surgeries: Yes Tubal Ligation Respiratory: Yes Asthma Cardiac: No Neurological: No 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 3.0oz. 95.239840hq; 30.00 BMI Method:Stated General Appearance: WD/WN, moderate distress Eyes: Bilateral Eye Normal Inspection, Bilateral Eye PERRL, Bilateral Eye EOMI HEENT: PERRL/EOMI, pharynx normal Neck: normal inspection Respiratory: respiratory distress (mild; 3-4 word dyspnea), wheezing, other (coarse dry cough) Cardiovascular: regular rate, rhythm Extremities: normal range of motion, normal inspection, no calf tenderness Neurologic/Psychiatric: alert, normal mood/affect, oriented x 3 Skin: normal color, warm/dry Procedures/Interventions Date of ETT Placement: Jul 13, 2018 Time of ETT Placement: 1936 Progress/Results/Core Measures Suspected Sepsis SIRS Temperature: Pulse: Respiratory Rate: Blood Pressure / Mean: Results/Orders My Orders Orders - DIRK HEIN MD Communication For Respiratory (09/21/21 03:34) Albuterol/Ipra Inhalation Soln (Duoneb I (09/21/21 03:45) Prednisone Tablet (Deltasone Tablet) (09/21/21 03:45) Svn Small Volume Nebulizer (09/21/21 03:34) Medications Given in ED Current Medications Medications Dose Ordered Sig/James Route Start Time Stop Time Status Last Admin Dose Admin Albuterol/ Ipratropium 6 ml ONCE ONCE INH 09/21/21 03:45 09/21/21 03:46 DC 09/21/21 03:44 6 ML Prednisone 50 mg ONCE ONCE PO 09/21/21 03:45 09/21/21 03:46 DC 09/21/21 03:43 50 MG Vital Signs/I&O 09/21/21 09/21/21 09/21/21 03:34 03:34 03:45 Temp 36.8 Pulse 118 Resp 28 B/P (MAP) 185/127 (146) Pulse Ox 96 95 O2 Delivery Room Air Room Air Room Air Capillary Refill : Progress Note #1: Time: 04:20 Progress Note Feeling better, wheezing has improved. Lungs sound better. She has been done with her breathing treatment about 10 minutes. Will monitor another 10 to 15 minutes and see how she does. Progress Note #2: Time: 04:53 Progress Note Continues to feel better. No wheezing. Vital signs are stable. We will send home with an albuterol inhaler. Prednisone taper over the next several days.. Return precautions discussed. All questions are sought and answered. Patient is stable for discharge. Departure Impression Primary Impression: Asthma exacerbation Qualified Codes: J45.901 - Unspecified asthma with (acute) exacerbation Disposition: 01 HOME, SELF-CARE Condition: Improved Departure-Patient Inst. Decision time for Depature: 04:53 Referrals: [facility] (PCP) Primary Care Physician CHEL DUDLEY (Family) Primary Care Physician Patient Instructions: Asthma, Adult (DC) Add. Discharge Instructions: Use the albuterol inhaler, 2 puffs every 4-6 hours as needed for shortness of breath. Finish the prednisone over the course of the next several days as prescribed decreasing by 1 pill a day every day. Return to the emergency room for any worsening shortness of breath, fever or other emergent concerning symptoms. Follow-up with your primary care provider. Scripts Prednisone (Prednisone) 10 Mg Tab.ds.pk 10 MG PO DAILY, #21 EA Take 6 tabs(60mg)daily,decrease by 1 tab(10MG)daily. Prov: DIRK HEIN MD 09/21/21 Copy Copies To 1: HOANG BLAKE KATHRYN M MD September 21, 2021 03:40
[2021-09-21] MEDS ORDERED: predniSONE 20 MG TAB PO ONE (03:45)
[2021-09-21] MEDS ORDERED: RT-ALBUTEROL/IPRATROPIUM 3 ML (DUONEB) VIAL INH ONE (03:45)
[2021-09-21] MEDS ORDERED: RX-ALBUTEROL INHALER 8.5 GM HFA (PROAIR) IH STA (04:55)
[2021-09-21 05:02] VITALS: BP 138/93
== END 2021-09-21 05:00 | disposition home or self-care (01) ==
LOC: EDUNIT# 03:20 → ER 03:22
DX: J45.901 Unspecified asthma with (acute) exacerbation (principal); Z87.891 Personal history of nicotine dependence; Z86.16 Personal history of COVID-19
CPT/HCPCS: 94640

== ENCOUNTER 2023-02-12 00:42 | Emergency (ER) | payer OTHER, MEDICAID ==
[~2023-02-12] VITALS: Ht 167 cm; Wt 90.7 kg
[~2023-02-12 00:42] MED LIST changes: +ALBU8.5H6 IH; -DOXY-311 PO; +DOXY-444 PO; +POTA-185 PO; -POTA10TA PO; -RT-ALBUINH IH
--- NOTE | 2023-02-12 01:36 | ED General ---
General Chief Complaint: Respiratory Problems Stated Complaint: SOB Nursing Triage Note: PATIENT STATES PAIN RT SIDE. 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 LABORED BREATHING. Source of Information: Patient Exam Limitations: No Limitations History of Present Illness Date Seen by Provider: Feb 12, 2023 Time Seen by Provider: 01:15 Initial Comments This 47-year-old woman presents to the emergency room with complaints of right flank pain over the right posterior and lateral inferior chest wall and radiating around into the right upper quadrant of the abdomen. She feels short of breath when this pain comes on. She denies any nausea or vomiting. She has had some recent cough. She had an episode last night and then again this morning. Pain seems to be worse with deep breathing. She retains her gallbladder. She last ate yesterday evening when she had meatballs for dinner. Pain seem to be subsiding significantly at the time of my initial interview and exam. Allergies and Home Medications Allergies Coded Allergies: No Known Drug Allergies (Unverified , 07/13/18) Patient Home Medication List Home Medication List Reviewed: Yes Albuterol Sulfate (Proventil Hfa) 6.7 Gm Hfa.aer.ad, 2 PUFF INH Q6H, (Reported) Entered as Reported by: GT BRUNO on 07/22/19 1202 Benzonatate (Tessalon Perles) 100 Mg Capsule, 100 MG PO TID PRN for cough Prescribed by: MARK SANTOS on 07/24/19 1139 Cefdinir (Cefdinir) 300 Mg Capsule, 300 MG PO BID Prescribed by: THIAGO LORENZ on 10/06/19 1211 Cephalexin (Cephalexin) 500 Mg Tablet, 500 MG PO TID Prescribed by: THIGAO LORENZ on 02/12/23 0431 Fexofenadine HCl (Rebeca Allergy) 180 Mg Tablet, 180 MG PO DAILY PRN for ALLERGY SYMPTOMS, (Reported) Entered as Reported by: GT BRUNO on 07/22/19 1202 Fluticasone/Salmeterol (Advair Hfa 115-21 Mcg Inhaler) 12 Gm Hfa.aer.ad, 2 PUFF IH BID@ Prescribed by: MARK SANTOS on 07/24/19 0950 Montelukast Sodium (Montelukast Sodium) 10 Mg Tablet, 10 MG PO HS Prescribed by: MARK SANTOS on 07/24/19 0950 Nitrofurantoin Monohyd/M-Cryst (Macrobid 100 mg Capsule) 100 Mg Capsule, 1 TAB PO BID Prescribed by: AKI CHISHOLM on 07/30/212019 Prednisone (Prednisone) 10 Mg Tab.ds.pk, 10 MG PO DAILY Prescribed by: MARK SANTOS on 07/24/19949 Prednisone (Prednisone) 10 Mg Tab.ds.pk, 10 MG PO DAILY Prescribed by: DIRK HEIN on 09/21/21 0340 Review of Systems Review of Systems Constitutional: no symptoms reported EENTM: no symptoms reported Respiratory: see HPI Cardiovascular: no symptoms reported Gastrointestinal: see HPI Genitourinary: see HPI Musculoskeletal: see HPI Skin: no symptoms reported Psychiatric/Neurological: No Symptoms Reported Hematologic/Lymphatic: No Symptoms Reported Immunological/Allergic: no symptoms reported Past Dfalzbz-Nqazfd-Ozrxax Hx Patient Social History Tobacco Use?: No Use of E-Cig and/or Vaping dev: No Substance use?: No Alcohol Use?: Yes Alcohol Frequency: Several times a month Immunizations Up To Date Tetanus Booster (TDap): Unknown Influenza Vaccine Up-to-Date: No; Not Current First/Initial COVID19 Vaccinat: 2020 Second COVID19 Vaccination Chuy: 2020 Third COVID19 Vaccination Date: 2020 Seasonal Allergies Seasonal Allergies: No Past Medical History Surgeries: Yes Tubal Ligation Respiratory: Yes Asthma Cardiac: No Neurological: No 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 3.0oz. 95.045307ec; 32.00 BMI Method:Stated General Appearance: WD/WN, Mild Distress (Minimal) HEENT: Normal ENT Inspection Neck: Normal Inspection Respiratory: Lungs Clear, Normal Breath Sounds, No Accessory Muscle Use, No Respiratory Distress, Other (Chest wall tender to palpation over the posterior and lateral inferior portions of the chest wall) Cardiovascular: Regular Rate, Rhythm, No Edema, No Murmur Gastrointestinal: Non Tender, Soft; No Distended Back: Normal Inspection, CVA Tenderness (L); No CVA Tenderness (R) Extremity: Normal Inspection Neurologic/Psychiatric: Alert, Oriented x3, No Motor/Sensory Deficits, Normal Mood/Affect, 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 Skin: Normal Color, Warm/Dry Procedures/Interventions Date of ETT Placement: Jul 13, 2018 Time of ETT Placement: 1936 Progress/Results/Core Measures Suspected Sepsis SIRS Temperature: Pulse: 93 Respiratory Rate: 20 Laboratory Tests 02/12/23 00:51: White Blood Count 10.0 Blood Pressure 164 /99 Mean: 120 Laboratory Tests 02/12/23 00:51: Creatinine 1.11, Platelet Count 567H, Total Bilirubin 0.4 Results/Orders Lab Results Laboratory Tests Test 02/12/23 00:51 02/12/23 03:42 Range/Units White Blood Count 10.0 4.3-11.0 10^3/uL Red Blood Count 5.52 H 3.80-5.11 10^6/uL Hemoglobin 13.8 11.5-16.0 g/dL Hematocrit 44 35-52 % Mean Corpuscular Volume 80 80-99 fL Mean Corpuscular Hemoglobin 25 25-34 pg Mean Corpuscular Hemoglobin Concent 31 L 32-36 g/dL Red Cell Distribution Width 15.9 H 10.0-14.5 % Platelet Count 567 H 130-400 10^3/uL Mean Platelet Volume 9.4 9.0-12.2 fL Immature Granulocyte % (Auto) 0 % Neutrophils (%) (Auto) 54 42-75 % Lymphocytes (%) (Auto) 34 12-44 % Monocytes (%) (Auto) 7 0-12 % Eosinophils (%) (Auto) 5 0-10 % Basophils (%) (Auto) 1 0-10 % Neutrophils # (Auto) 5.4 1.8-7.8 10^3/uL Lymphocytes # (Auto) 3.4 1.0-4.0 10^3/uL Monocytes # (Auto) 0.7 0.0-1.0 10^3/uL Eosinophils # (Auto) 0.5 H 0.0-0.3 10^3/uL Basophils # (Auto) 0.1 0.0-0.1 10^3/uL Immature Granulocyte # (Auto) 0.0 0.0-0.1 10^3/uL Sodium Level 142 135-145 MMOL/L Potassium Level 3.3 L 3.6-5.0 MMOL/L Chloride Level 106 98-107 MMOL/L Carbon Dioxide Level 21 21-32 MMOL/L Anion Gap 15 H 5-14 MMOL/L Blood Urea Nitrogen 16 7-18 MG/DL Creatinine 1.11 0.60-1.30 MG/DL Estimat Glomerular Filtration Rate 62 BUN/Creatinine Ratio 14 Glucose Level 133 H 70-105 MG/DL Calcium Level 10.3 H 8.5-10.1 MG/DL Corrected Calcium 8.5-10.1 MG/DL Total Bilirubin 0.4 0.1-1.0 MG/DL Aspartate Amino Transf (AST/SGOT) 49 H 5-34 U/L Alanine Aminotransferase (ALT/SGPT) 32 0-55 U/L Alkaline Phosphatase 54 40-136 U/L Total Protein 8.1 6.4-8.2 GM/DL Albumin 4.6 H 3.2-4.5 GM/DL Urine Color YELLOW Urine Clarity CLEAR Urine pH 6.5 5-9 Urine Specific [place] 1.020 1.016-1.022 Urine Protein NEGATIVE NEGATIVE Urine Glucose (UA) NEGATIVE NEGATIVE Urine Ketones TRACE H NEGATIVE Urine Nitrite POSITIVE H NEGATIVE Urine Bilirubin NEGATIVE NEGATIVE Urine Urobilinogen 0.2 < = 1.0 MG/DL Urine Leukocyte Esterase NEGATIVE NEGATIVE Urine RBC (Auto) TRACE H NEGATIVE Urine RBC RARE /HPF Urine WBC 0-2 /HPF Urine Squamous Epithelial Cells 2-5 /HPF Urine Crystals NONE /LPF Urine Bacteria LARGE H /HPF Urine Casts NONE /LPF Urine Mucus NEGATIVE /LPF Urine Culture Indicated YES My Orders Orders - THIAGO ROPER MD Ekg Tracing (02/12/23 00:49) Chest Pa/Lat (2 View) (02/12/23 01:27) Cbc And Automated Diff (02/12/23 01:27) Comprehensive Metabolic Panel (02/12/23 01:27) Ua Culture If Indicated (02/12/23 01:27) Lactated Ringers 1,000 Ml (Lactated Ring (02/12/23 02:15) Urine Culture (02/12/23 03:42) Cephalexin Capsule (Cephalexin Capsule) (02/12/23 04:30) Medications Given in ED Current Medications Medications Dose Ordered Sig/James Route Start Time Stop Time Status Last Admin Dose Admin Lactated Ringer's 1,000 ml @ 0 mls/hr Q0M ONCE IV 02/12/23 02:15 02/12/23 02:16 DC 02/12/23 02:19 999 MLS/HR Vital Signs/I&O 02/12/23 00:47 Temp 36.9 Pulse 93 Resp 20 B/P (MAP) 164/99 (120) Pulse Ox 99 O2 Delivery Room Air Capillary Refill : Less Than 3 Seconds Blood Pressure Mean: 120 Progress Note #1: Time: 03:03 Progress Note Patient was interviewed and examined at 0115. Pain was subsiding at that time. Labs were obtained and reviewed by me in their entirety. CBC was notable only for elevated platelet count of 567. CMP was notable for slight hypokalemia with potassium of 3.3 and glucose of 133. Patient's pain began to rebound and she was treated with Toradol. Chest x-rays were viewed by me and unremarkable by my interpretation. We are presently awaiting patient to produce a urine specimen so we may finish the work-up. Progress Note #2: Time: 04:34 Progress Note Urinalysis was reviewed and interpreted by me. It was somewhat suggestive for urinary tract infection with positive nitrite and large bacteria. No significant WBC or RBC count was noted. Patient was treated for possible UTI with Keflex. We discussed options to further evaluate her pain. We discussed CT scan versus ultrasound of the gallbladder. Her pain seems to be focused in the right upper quadrant and radiating toward the back and chest wall posterior to the right upper quadrant. By location, pain seems to be more consistent with gallbladder and it seems colicky as would be expected with a gallbladder etiology. Patient wishes to proceed with gallbladder ultrasound later this morning. Order form was provided. See discharge instructions for further discussion. ECG Initial ECG Impression Date: Feb 12, 2023 Initial ECG Impression Time: 00:51 Initial ECG Rate: 91 Initial ECG Rhythm: Normal Sinus Initial ECG Intervals: Normal Comment Normal sinus rhythm with no ST elevation or depression. No abnormal intervals or axis deviation. Diagnostic Imaging Diagonstic Imaging: Xray Plain Films/CT/US/NM/MRI: chest Comments 2 view chest x-ray viewed by me. Report not yet available. No acute abnormalities were appreciated by my interpretation. Departure Impression Primary Impression: Right upper quadrant pain Additional Impressions: Chest wall pain Urinary tract infection Qualified Codes: N39.0 - Urinary tract infection, site not specified Disposition: HOME, SELF-CARE Condition: Improved Departure-Patient Inst. Decision time for Depature: 04:23 Referrals: [facility] (PCP) Primary Care Physician CHEL DUDLEY (Family) Primary Care Physician Patient Instructions: Abdominal Pain, Adult ED, Urinary Tract Infection, Adult ED Add. Discharge Instructions: If you are still having pain after 7:00 this morning, return to the hospital at 7:30 for a gallbladder ultrasound. Do not eat or drink until the ultrasound is performed. Bring your order form with you. Stay at the hospital until the decontamination technician can give you instructions after the ER physician reviews results. If no abnormalities requiring surgery are seen on the ultrasound, you may start with a clear liquid diet and gradually advance your diet with small quantities of bland food as tolerated. You may take Tylenol (acetaminophen) up to 1000 mg every 6 hours and/or ibuprofen up to 600 mg every 6 hours as needed for pain. Return to the ER if you have worsening symptoms despite following these instructions. All discharge instructions reviewed with patient and/or family. Voiced understanding. Scripts Cephalexin (Cephalexin) 500 Mg Tablet 500 MG PO TID, #20 TAB Prov: THIAGO ROPER MD 02/12/23 Work/School Note: Work Release Form Date Seen in the Emergency Department: Feb 12, 2023 Return to Work: Feb 13, 2023 Restrictions: No Restrictions Copy Copies To 1: [facility]/THIAGO COLEMAN MD Feb 12, 2023 01:36
[2023-02-12 01:49] LABS: BASOPHILS # (AUTO) 0.1 10^3/uL (0.0-0.1); BASOPHILS % (AUTO) 1 % (0-10); EOSINOPHILS # (AUTO) 0.5 10^3/uL (0.0-0.3); EOSINOPHILS % (AUTO) 5 % (0-10); HEMATOCRIT 44 % (35-52); HEMOGLOBIN 13.8 g/dL (11.5-16.0); LYMPHOCYTES # (AUTO) 3.4 10^3/uL (1.0-4.0); LYMPHOCYTES % (AUTO) 34 % (12-44); MEAN CORPUSCULAR HEMOGLOBIN 25 pg (25-34); MEAN CORPUSCULAR HGB CONC 31 g/dL (32-36); MEAN CORPUSCULAR VOLUME 80 fL (80-99); MEAN PLATELET VOLUME 9.4 fL (9.0-12.2); MONOCYTES # (AUTO) 0.7 10^3/uL (0.0-1.0); MONOCYTES % (AUTO) 7 % (0-12); NEUTROPHILS # (AUTO) 5.4 10^3/uL (1.8-7.8); NEUTROPHILS % (AUTO) 54 % (42-75); PLATELET COUNT 567 10^3/uL (130-400)
[2023-02-12 01:53] LABS: ALBUMIN 4.6 GM/DL (3.2-4.5); CHLORIDE 106 MMOL/L (98-107); POTASSIUM 3.3 MMOL/L (3.6-5.0); SODIUM 142 MMOL/L (135-145)
[2023-02-12 01:55] LABS: CALCIUM 10.3 MG/DL (8.5-10.1)
[2023-02-12 01:56] LABS: GLUCOSE 133 MG/DL (70-105); TOTAL PROTEIN 8.1 GM/DL (6.4-8.2)
[2023-02-12 01:57] LABS: BILIRUBIN,TOTAL 0.4 MG/DL (0.1-1.0); CARBON DIOXIDE 21 MMOL/L (21-32)
[2023-02-12 01:59] LABS: ALKALINE PHOSPHATASE 54 U/L (40-136); CREATININE SERUM 1.11 MG/DL (0.60-1.30); GFR ESTIMATED 62
[2023-02-12 02:00] LABS: BUN/CREATININE RATIO 14
[2023-02-12 02:02] LABS: ALANINE AMINOTRANSFERASE 32 U/L (0-55)
[2023-02-12] MEDS ORDERED: LACTATED RINGERS 1,000 ML 1,000 ML IV ONE (02:15)
[2023-02-12 04:07] LABS: BILIRUBIN,URINE NEGATIVE (NEGATIVE); CLARITY,URINE CLEAR; COLOR,URINE YELLOW; GLUCOSE, URINE (UA) NEGATIVE (NEGATIVE); KETONES,URINE TRACE (NEGATIVE); LEUKOCYTE ESTERASE ,URINE NEGATIVE (NEGATIVE); NITRITE,URINE POSITIVE (NEGATIVE); PH,URINE 6.5 (5-9); PROTEIN,URINE NEGATIVE (NEGATIVE)
[2023-02-12 04:08] LABS: BACTERIA,URINE LARGE /HPF; RBC,URINE RARE /HPF; WBC,URINE 0-2 /HPF
[2023-02-12] MEDS ORDERED: CEPHALEXIN 250 MG CAPSULE PO ONE (04:30)
[2023-02-12] MEDS ORDERED: CEPH500T PO (04:31)
[2023-02-12 04:45] VITALS: BP 164/99
--- NOTE | 2023-02-12 08:17 | Diagnostic Imaging Report ---
EXAMINATION: Chest 2 view HISTORY: Cough, Chest pain COMPARISON: 07/30/2021 FINDINGS: There is mild left mid zone atelectasis. Otherwise, the lungs are clear without edema or pneumonia. No pleural effusion or pneumothorax. Heart size is normal. IMPRESSION: 1. Mild atelectasis, otherwise clear lungs. Dictated by: Dictated on workstation # [id number]
[2023-02-13] MEDS ORDERED: LOSA50TA63 PO (15:24)
[2023-02-13] MEDS ORDERED: CEPH500T PO (15:36)
[2023-02-14] MEDS ORDERED: DOCU-143 PO (12:40)
[2023-02-14] MEDS ORDERED: ACHD5005 PO (12:40)
== END 2023-02-12 04:45 | disposition home or self-care (01) ==
LOC: EDUNIT# 00:42 → ER 00:44
DX: N39.0 Urinary tract infection, site not specified (principal); R07.89 Other chest pain; D75.839 Thrombocytosis, unspecified
CPT/HCPCS: 36415; 71046; 80053; 81000; 85025; 87077; 87088; 87186; 93005

== ENCOUNTER 2023-02-12 13:54 | Emergency (ER) | payer OTHER, MEDICAID ==
[~2023-02-12] VITALS: Ht 167.7 cm; Wt 89.8 kg
[~2023-02-12 13:54] MED LIST changes: +CEPH500T PO
--- NOTE | 2023-02-12 14:12 | ED Abdominal Pain ---
General Chief Complaint: Back Problems Stated Complaint: BACK PAIN Nursing Triage Note: PT AMB TO RM 5 WITH CC OF R UPPER BACK PAIN THAT RADIATES TO R RIBS. 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 PT REPORTS WAS SEEN LAST PM FOR SAME CONCERN. History of Present Illness Date Seen by Provider: Feb 12, 2023 Time Seen by Provider: 14:05 Initial Comments 47 year old female presents for US results. Patient was seen in this ED at approx 0100. Reports Pain 4/10 at present. She has been NPO since 1800 yesterday. Also diagnosed with UTI and on Keflex. Did not take her B/P Medicine today 150/100, instructed to take her Losartan with small sip of water. No N/V/D. Timing/Duration: 24 Hours Severity/Quality: Mild Location: RUQ Radiation: Shoulder (right) Associated Symptoms: Denies Symptoms Allergies and Home Medications Allergies Coded Allergies: No Known Drug Allergies (Unverified , 07/13/18) Patient Home Medication List Home Medication List Reviewed: Yes Albuterol Sulfate (Proventil Hfa) 6.7 Gm Hfa.aer.ad, 2 PUFF INH Q6H, (Reported) Entered as Reported by: GT BRUNO on 07/22/19 1202 Benzonatate (Tessalon Perles) 100 Mg Capsule, 100 MG PO TID PRN for cough Prescribed by: MARK SANTOS on 07/24/19 1139 Cefdinir (Cefdinir) 300 Mg Capsule, 300 MG PO BID Prescribed by: THIAGO LORENZ on 10/06/19 1211 Cephalexin (Cephalexin) 500 Mg Tablet, 500 MG PO TID Prescribed by: THIAGO LORENZ on 02/12/23 0431 Fexofenadine HCl (Rebeca Allergy) 180 Mg Tablet, 180 MG PO DAILY PRN for ALLERGY SYMPTOMS, (Reported) Entered as Reported by: GT BRUNO on 07/22/19 1202 Fluticasone/Salmeterol (Advair Hfa 115-21 Mcg Inhaler) 12 Gm Hfa.aer.ad, 2 PUFF IH BID@,20 Prescribed by: MARK SANTOS on 07/24/19 0950 Montelukast Sodium (Montelukast Sodium) 10 Mg Tablet, 10 MG PO HS Prescribed by: MARK SANTOS on 07/24/19949 Nitrofurantoin Monohyd/M-Cryst (Macrobid 100 mg Capsule) 100 Mg Capsule, 1 TAB PO BID Prescribed by: AKI CHISHOLM on 07/30/212019 Prednisone (Prednisone) 10 Mg Tab.ds.pk, 10 MG PO DAILY Prescribed by: MARK SANTOS on 07/24/19949 Prednisone (Prednisone) 10 Mg Tab.ds.pk, 10 MG PO DAILY Prescribed by: DIRK HEIN on 09/21/21 0340 Review of Systems Review of Systems Constitutional: no symptoms reported, see HPI Gastrointestinal: See HPI, Abdominal Pain; Denies Diarrhea, Denies Nausea, Denies Vomiting All Other Systems Reviewed Negative Unless Noted: Yes Past Gjoetrr-Vyuwtf-Pceuqx Hx Patient Social History Tobacco Use?: No Substance use?: No Alcohol Use?: No Immunizations Up To Date Tetanus Booster (TDap): Unknown First/Initial COVID19 Vaccinat: 2020 Second COVID19 Vaccination Chuy: 2020 Third COVID19 Vaccination Date: 2020 Seasonal Allergies Seasonal Allergies: No Past Medical History Surgery/Hospitalization HX: HTN Surgeries: Yes Tubal Ligation Respiratory: Yes Asthma Cardiac: No Neurological: No 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 3.0oz. 95.583071yt; 31.00 BMI Method:Stated General Appearance: WD/WN, no apparent distress Respiratory: chest non-tender, lungs clear, normal breath sounds, no respiratory distress Cardiovascular: normal peripheral pulses, regular rate, rhythm Gastrointestinal: normal bowel sounds, soft, tenderness (RUQ), other (Pain with Orosco sign) Neurologic/Psychiatric: no motor/sensory deficits, alert, normal mood/affect, oriented x 3 Skin: normal color, warm/dry Procedures/Interventions Date of ETT Placement: Jul 13, 2018 Time of ETT Placement: 193 Progress/Results/Core Measures Results/Orders Vital Signs/I&O 02/12/23 14:00 Temp 36.3 Pulse 89 Resp 16 B/P (MAP) 171/114 (133) Pulse Ox 97 O2 Delivery Room Air Blood Pressure Mean: 133 Progress Progress Note : Time: 14:05 Progress Note Patient assessed, reviewed labs from earlier this morning. Discussed exam, ultrasound and labs with Dr. Estrada. He recommended evaluation in his clinic tomorrow at 2:00. Patient agreeable with this plan. She will adhere to a clear liquid diet and take the Keflex for both the cholecystitis and UTI. Discharge instructions and return precautions reviewed with her. All questions answered. Diagnostic Imaging Diagonstic Imaging: Ultrasound Plain Films/CT/US/NM/MRI: abdomen Comments NAME: TIMI DELGADO [facility] REC#: [id number] PT STATUS: REG CLI : 1975 PHYSICIAN: THIAGO ROPER MD ADMIT DATE: 02/12/23/RAD Draft Date of Exam:02/12/23 US GALLBLADDER [id number] PROCEDURE: US Gallbladder. TECHNIQUE: Multiple real-time grayscale images were obtained over the right upper quadrant in various projections. INDICATION: Right upper quadrant pain. Liver is normal in size at 14 cm. Portal vein is patent and shows normal direction of flow. Gallbladder is contracted. The gallbladder wall appears to be some significantly thickened measuring up to 6 mm. There is no biliary ductal dilatation. Pancreas is poorly visualized due to overlying bowel gas. Right kidney is without calculi or hydronephrosis. There is no ascites. IMPRESSION: Cholelithiasis with thick-walled gallbladder, concerning for acute cholecystitis. HIDA scan may be useful for further evaluation. Dictated on workstation # [id number] Dict: 02/12/23 1357 Trans: 02/12/23 1411 [facility] [id number] Interpreted by: JAELYN OLIVO MD Electronically signed by: Reviewed: Reviewed by Me Departure Impression Primary Impression: Cholecystitis, acute with cholelithiasis Qualified Codes: K80.00 - Calculus of gallbladder with acute cholecystitis without obstruction Disposition: HOME, SELF-CARE Condition: Stable Departure-Patient Inst. Decision time for Depature: 14:30 [address]errals: [facility] [place] (PCP/Family) Primary Care Physician HOUSTON ESTRADA DO Patient Instructions: Gallstones (DC) Add. Discharge Instructions: Clear Liquid Diet until Follow up with Dr. Estrada. See Dr. Estrada at 2:00 on SatFeb 13. Take antibiotic as prescribed for UTI. You can alternate between Tylenol 650 mg and ibuprofen 600 mg every 4 hours for pain. Return to the emergency department for new, urgent healthcare needs. All discharge instructions reviewed with patient and/or family. Voiced understanding. Copy Copies To 1: HOUSTON ESTRADA DO JAMIE THEODORE Feb 12, 2023 14:12
[2023-02-12 14:42] VITALS: BP 159/94
[2023-02-13] MEDS ORDERED: LOSA50TA63 PO (15:24)
[2023-02-13] MEDS ORDERED: CEPH500T PO (15:36)
[2023-02-14] MEDS ORDERED: ACHD5005 PO (12:40)
[2023-02-14] MEDS ORDERED: DOCU-143 PO (12:40)
== END 2023-02-12 14:42 | disposition home or self-care (01) ==
LOC: EDUNIT# 13:54 → ER 13:56
DX: K80.00 Calculus of gallbladder with acute cholecystitis without obstruction (principal); N39.0 Urinary tract infection, site not specified
CPT/HCPCS: 99281

== ENCOUNTER 2023-02-13 14:56 | Outpatient (CLI) | payer OTHER, MEDICAID ==
[~2023-02-13] VITALS: Ht 170.2 cm; Wt 93.8 kg
[2023-02-13] MEDS ORDERED: LOSA50TA63 PO (15:24)
[2023-02-13] MEDS ORDERED: CEPH500T PO (15:36)
[2023-02-14] MEDS ORDERED: DOCU-143 PO (12:40)
[2023-02-14] MEDS ORDERED: ACHD5005 PO (12:40)
== END 2023-02-13 15:48 | disposition home or self-care (01) ==
LOC: PREOP 14:56
PROVIDERS: ATTEND Surgery
DX: Z01.818 Encounter for other preprocedural examination (principal)

== ENCOUNTER 2023-02-14 09:50 | Day surgery (SDC) | payer OTHER, MEDICAID ==
[2023-02-14] VITALS (10 sets, daily range): BP systolic 135–155; BP diastolic 77–105
[~2023-02-14] VITALS: Ht 170 cm; Wt 93.8 kg
[~2023-02-14 09:50] MED LIST changes: +LOSA50TA63 PO
[2023-02-14] MEDS ORDERED: ceFAZolin INJECTION 2,000 MG in NS (IVPB) 50 ML 50 ML IV ONE (10:00)
--- NOTE | 2023-02-14 10:40 | Progress Note-Pre Operative ---
Pre-Operative Progress Note Date H&P Reviewed: Feb 14, 2023 Time H&P Reviewed: 10:39 History & Physical: H&P Reviewed, Patient Examed, No changes noted Pre-Operative Diagnosis: cholelithiasis HOUSTON ESTRADA DO Feb 14, 2023 10:40
[2023-02-14] MEDS ORDERED: LIDOCAINE/EPI 1%-1:200,000 (XYLOCAINE) 30 ML VIAL ONE (10:42)
[2023-02-14] MEDS: LACTATED RINGERS 1,000 ML 1,000 ML IV PRN ×2 (10:43→12:42)
[2023-02-14] MEDS ORDERED: dexAMETHasone INJ 10 MG/ML 1 ML VIAL ONE (10:46)
[2023-02-14] MEDS ORDERED: fentaNYL INJECTION 100 MCG/2 ML VIAL ONE (10:46)
[2023-02-14] MEDS ORDERED: ROCURONIUM 50 MG/5 ML VIAL IV ONE (10:46)
[2023-02-14] MEDS ORDERED: ONDANSETRON INJECTION 4 MG/2 ML (SDV) ONE (10:46)
[2023-02-14] MEDS ORDERED: proPOfol INJECTION 200 MG/20 ML VIAL IV ONE (10:46)
[2023-02-14] MEDS ORDERED: LIDOCAINE PF 2% 5 ML VIAL ONE (10:46)
[2023-02-14] MEDS ORDERED: MIDAZOLAM INJ 2 MG/2 ML VIAL ONE (10:46)
[2023-02-14] MEDS ORDERED: LIDOCAINE/EPI 1%-1:200,000 (XYLOCAINE) 30 ML VIAL INJ ONE (12:11)
[2023-02-14] MEDS ORDERED: PHENYLEPHRINE 100 MCG/ML 10 ML (ANESTHESIA) SYR ONE (12:13)
[2023-02-14] MEDS ORDERED: GLYCOPYRROLATE INJ 0.2 MG/ML 2 ML VIAL ONE (12:31)
[2023-02-14] MEDS ORDERED: NEOSTIGMINE 1 MG/1ML 10 ML VIAL ONE (12:31)
[2023-02-14] MEDS ORDERED: SEVOFLURANE (ULTANE) 15 ML INHAL SOLN ONE (12:38)
--- NOTE | 2023-02-14 12:38 | Progress Note-Post Operative ---
Post-Operative Progess Note Surgeon (s)/Ice Cream Freezer Helper (s) Surgeon HOUSTON ESTRADA DO Ice Cream Freezer Helper: Dr. Caraballo to assist in retraction dissection and closure. Pre-Operative Diagnosis cholelithiasis Post-Operative Diagnosis same Procedure & Operative Findings Date of Procedure 02/14/23 Procedure Performed/Findings PROCEDURE: Laparoscopic cholecystectomy with intraoperative cholangiogram. COMPLICATIONS: None. PROCEDURE: The patient was taken to the operating suite and was prepped and draped in sterile fashion. A surgical pause was performed. Just superior to the umbilicus, a 12 mm incision was made. Dissection was taken down to the fascia, which was then scored and grasped with a Tsephen and the abdomen was then entered. A 0 Vicryl suture was placed in a [id number] fashion and a Smith trocar was placed and secured. Pneumoperitoneum was achieved. A 5mm trochar place in the subxyphoid and 2 in the right upper quadrant. The gallbladder was then grasped and elevated. The cystic duct, and cystic artery were then dissected out. Clip was placed on the distal portion of the cystic duct which was then partially transected. An arrow catheter was inserted into the duct. The cholangiogram was then performed. No filing defects and contrast made its way into the duodenum. Catheter removed. Clips were placed on proximal portion of the cystic duct and then the duct was then transected. Clips were placed along the proximal and distal portion of the cystic artery which was then transected. Hook cautery was used to dissect the gallbladder from the gallbladder fossa achieving hemostasis. The gallbladder was placed in an Endobag and removed through the 12 mm trocar site. The abdomen was then reinspected. Copious amounts of irrigation were used to irrigate the abdomen and there were no signs of active bleeding. Hemostasis had been achieved. The 12 mm fascial defect was then closed with 0 Vicryl suture that had been placed in a birfsk-zb-caeyc fashion. The abdomen was then desufflated, the trocars were removed. The abdomen was then washed and dried. The skin was then closed using 4-0 Monocryl in a subcuticular fashion. The abdomen was washed and dried and Skin Affix was place over incisions. Patient tolerated the procedure well without any complications and was taken to the recovery room in stable condition. Anesthesia Type general Estimated Blood Loss Estimated blood loss (mL): minimal Specimens/Packing Specimens Removed galllbladder HOUSTON ESTRADA DO Feb 14, 2023 12:38
[2023-02-14] MEDS ORDERED: DOCU-143 PO (12:40)
[2023-02-14] MEDS ORDERED: ACHD5005 PO (12:40)
--- NOTE | 2023-02-14 12:41 | Discharge Inst-Simple/Standard ---
Discharge Inst-Standard Discharge Medications New, Converted or Re-Newed RX: Transmitted to Pharmacy Patient Instructions/Follow Up Plan of Care/Instructions/FU: 2 weeks Ori Activity as Tolerated: No Discharge Diet: Regular Diet Other Inst to Patient Follow up Appt: Make appointment for 2 weeks. Instructions: No lifting greater than 10 pounds. No strenuous activity. May shower in 24 hours, no tub bath or soaking. Use incentive spirometer at home as directed. No Smoking Skin/Wound Care: You have special glue over incision, it will fall off on it's own. Symptoms to Report: Appetite Changes, Extremity Discoloration, Numbness/Tingling, Swelling Increased, Bleeding Excessive, Eyesight Changes, Pain Increased, Urine Color Change, Constipation(Persistent), Fever over 101 degree F, Pain/Pressure in chest, Urinating Difficulty, Cough Up/Vomit Blood, Heart Beat Irreg/Pounding, Pain/Pressure in jaw, Vaginal Bleeding Increase, Cramps in feet or legs, Lightheadedness, Pain/Pressure in shoulder, Diarrhea(Persistent), Memory Changes Suddenly, Questions/Concerns, Weight gain consecutive days, Dizziness/Fainting, Nausea/Vomiting, Shortness of Breath, Weight gain over 2 pounds. If eyes or skin turn yellow notify physician. If questions or concerns contact your physician Or seek help at emergency department. HOUSTON ESTRADA DO Feb 14, 2023 12:41
[2023-02-14] MEDS ORDERED: fentaNYL INJECTION 100 MCG/2 ML VIAL IVP ONE (13:00)
[2023-02-14] MEDS ORDERED: HYDROmorphone INJECTION 2 MG/ML VIAL ONE (13:00)
[2023-02-14] MEDS ORDERED: MEPERIDINE INJ 50 MG/ML VIAL IVP ONE (13:00)
[2023-02-14] MEDS ORDERED: PROMETHAZINE INJ 25 MG/ML VIAL IVP ONE (13:00)
[2023-02-14] MEDS ORDERED: HYDROmorphone INJECTION 2 MG/ML VIAL IV ONE (13:00)
[2023-02-14] MEDS ORDERED: ONDANSETRON INJECTION 4 MG/2 ML (SDV) IVP PRN (13:00)
[2023-02-14] MEDS ORDERED: HYDROcodone/ACETAMINOPHEN 7.5 MG/325 MG TABLET PO ONE (14:00)
--- NOTE | 2023-02-14 14:03 | Diagnostic Imaging Report ---
INDICATION: History of right upper quadrant abdominal pain. COMPARISON: None Total number of fluoroscopic images saved: 54 Total fluoroscopy time: 10 seconds FINDINGS: Multiple intraoperative image intensifier and digital subtraction views of the right upper abdominal quadrant were obtained during cholangiogram. Contrast opacifies the intra and extrahepatic biliary ductal systems. No large intraluminal filling defect is seen. Contrast empties into the small bowel, as expected. Please note, interpreting radiologist was not present during the procedure. IMPRESSION: 1. Fluoroscopic guidance provided during intraoperative cholangiogram. Dictated by: Dictated on workstation # [id number]
--- NOTE | 2023-02-14 15:00 | Anesthesia-General Post-Op ---
General Patient Condition Mental Status/LOC: Same as Preop Cardiovascular: Satisfactory Nausea/Vomiting: Absent Respiratory: Satisfactory Pain: Controlled Complications: Absent Post Op Complications Complications None Follow Up Care/Instructions Patient Instructions None needed. Anesthesia/Patient Condition Patient Condition Patient is doing well, no complaints, stable vital signs, no apparent adverse anesthesia problems. No complications reported per nursing. LAUREL STEVENS CRNA Feb 14, 2023 15:00
== END 2023-02-14 14:45 | disposition home or self-care (01) ==
LOC: SDC 09:50
PROVIDERS: ATTEND Surgery
DX: K80.10 Calculus of gallbladder with chronic cholecystitis without obstruction (principal); Z87.891 Personal history of nicotine dependence; E66.9 Obesity, unspecified; Z68.32 Body mass index [BMI] 32.0-32.9, adult
CPT/HCPCS: 76000; 84703; 87081; 94664